=== PATIENT | female | born 1980 | race Caucasian/White ===

== ENCOUNTER 2022-07-31 08:40 | Outpatient (CLI) | payer BC, SELFPAY ==
[2022-07-31 14:23] LABS: Basophils Absolute Auto 0.02 K/uL (0.00-0.30); Basophils Percent Auto 0.2 % (0.0-3.0); Eosinophils Absolute Auto 0.29 K/uL (0.00-0.50); Hematocrit 42.5 % (33.0-51.0); Immature Granulocytes Abs Auto 0.01 K/uL (0.00-0.30); Immature Granulocytes Pct Auto 0.1 %; Lymphocytes Absolute Auto 2.64 K/uL (0.90-2.90); Lymphocytes Percent Auto 27.5 % (20-44); Mean Corpuscular HGB Conc 33 gm/dL (32-36); Mean Corpuscular Hemoglobin 30 pg (26-34); Mean Corpuscular Volume 91 fL (80-100); Monocytes Percent Auto 5.8 % (0.0-11.0); Neutrophils Absolute Auto 6.08 K/uL (1.7-7.0); Neutrophils Percent Auto 63.4 % (42.0-72.0); Platelet Count* 356 K/uL (140-440); RDW Coefficient of Variation % 13.2 % (11.5-15.5); Red Blood Count 4.69 m/uL (4.00-5.20)
[2022-07-31 14:29] LABS: Albumin* 4.5 g/dL (3.3-5.0); Chloride* 107 mmol/L (96-114); Slide Review Reflex No
[2022-07-31 14:30] LABS: Potassium* 4.3 mmol/L (3.6-5.1); Sodium* 140 mmol/L (135-149)
[2022-07-31 14:32] LABS: Aspartate Amino Transferase* 21 U/L (12-35); Bilirubin Direct* 0.2 mg/dL (0.0-0.5); Bilirubin Total* 0.4 mg/dL (0.1-1.5); Blood Urea Nitrogen* 14 mg/dL (5-24); Carbon Dioxide* 25 mmol/L (20-32); Creatinine* 0.7 mg/dL (0.5-1.5); Estimated Glomerular Filt Rate 109 ml/min; Total Protein* 7.3 g/dL (6.0-8.3)
[2022-07-31 14:33] LABS: Alanine Aminotransferase* 22 U/L (4-35); Alkaline Phosphatase* 54 U/L (40-150); Calcium* 9.3 mg/dL (8.4-10.6); Glucose* 106 mg/dL (60-115)
[2022-07-31 15:01] LABS: Erythrocyte SedimentationRate* 7 mm/hr (2-20)
== END 2022-07-31 08:41 | disposition home or self-care (01) ==
PROVIDERS: PCP Family Medicine; Visit Provider Family Medicine
DX: R10.9 Unspecified abdominal pain (principal); H20.9 Unspecified iridocyclitis
CPT/HCPCS: 80048; 80076; 85025; 85651

== ENCOUNTER 2022-08-07 09:01 | Outpatient (CLI) | payer BC, SELFPAY ==
--- NOTE | 2022-08-07 09:00 | CRLHL7_ITS ---
For Patients: As a result of the Century Cures Act, medical imaging exams and procedure reports are released immediately into your electronic medical record. You may view this report before your referring provider. If you have questions, please contact your health care provider. Indication: LLQ ABD PAIN THAT RADIATES TO THE BACK X 1 YEAR. 40# WEIGHT GAIN IN 6 MONTHS Technique: Postcontrast CT abdomen and pelvis. 98 cc Isovue 370 intravenous contrast. Please note that all CT scans at this facility use dose modulation, iterative reconstruction, and/or weight-based dosing when appropriate to reduce radiation dose to as low as reasonably achievable. Comparison: 10/02/2021, 12/23/2020 Findings: Mild sigmoid diverticulosis. No diverticulitis. No bowel obstruction or free air. No free fluid. Appendix normal. The bladder is nondistended. Right-sided uterine cyst again noted. There is a simple left ovarian cyst measuring 1.6 cm. Small right ovarian cyst measuring 1 cm. No adnexal mass. No pelvic or inguinal adenopathy. No abscess. The adrenal glands are within normal limits. Stable incidental calcification associated with the right adrenal gland. Decreased size of septated cystic structure arising from the lateral aspect of the lower pole right kidney, measuring 3.0 x 2.6 cm and previously measuring up to 3.8 cm. No hydronephrosis. Left kidney normal. The gallbladder is absent. There is a simple cyst within the right hepatic lobe. Normal spleen. Pancreas normal. No retroperitoneal or mesenteric adenopathy. The stomach is within normal limits. Mild dependent atelectasis is present within both lung bases. Benign bone island within the right side of the upper sacrum. Degenerative disc disease at L5-S1 and at L1-2. Small umbilical hernia contains fat incidentally noted. Benign bone islands elsewhere within the pelvis. Impression: Continued decreased size of the multilobulated cystic structure arising from the lateral aspect of the right kidney lower pole. No hydronephrosis. Mild diverticulosis. No diverticulitis. No bowel obstruction. Small incidental bilateral ovarian cysts and stable right uterine fundal cyst. Please note that all CT scans at this facility use dose modulation, iterative reconstruction, and/or weight-based dosing when appropriate to reduce radiation dose to as low as reasonably achievable. Dictated by John Sarmiento MD @ 08/07/2022 12:46:42 PM (Electronically Signed)
== END 2022-08-07 09:02 | disposition home or self-care (01) ==
LOC: CT 09:03
PROVIDERS: PCP Family Medicine; Visit Provider Family Medicine
DX: R10.32 Left lower quadrant pain (principal); K57.90 Diverticulosis of intestine, part unspecified, without perforation or abscess without bleeding; N83.201 Unspecified ovarian cyst, right side; N83.202 Unspecified ovarian cyst, left side; N85.8 Other specified noninflammatory disorders of uterus
CPT/HCPCS: 74177; Q9967

== ENCOUNTER 2022-08-26 18:07 | Emergency (ER) | payer BC, SELFPAY ==
[2022-08-26 18:17] VITALS: BP 126/74; PULSE 109; RESP 20; TEMP 37.6; O2SAT 97; BMI 33.3
[2022-08-26 18:53] LABS: Strep A DNA Probe* DETECTED (Not Detectd)
[2022-08-26 19:05] LABS: PCR FLU A Negative PCR FLU A (Negative); PCR FLU B Negative PCR FLU B (Negative); PCR RSV Negative PCR RSV (Negative)
[2022-08-26 19:06] LABS: SARS PCR* Negative SARS-CoV-2 (Negative)
--- NOTE | 2022-08-26 19:54 | ED_ITS ---
HPI - General Adult General Date Seen: 08/26/22 Chief complaint: Sore Throat Stated complaint: Possible Strep and ear infection Time Seen by Provider: 08/26/22 18:40 Source: patient Limitations: no limitations History of Present Illness HPI narrative: Patient is a very nice 42-year-old female presents here with a sore throat, bilateral ear symptoms, her symptoms actually are worse than her throat, she feels that she can not hear, and pressure in her ears. She is able to swallow, take fluids very well, denies any history of significant fevers so seated with this. There has been no nausea no vomiting, no rashes noted. She has been using Tylenol and or ibuprofen for the discomfort, Her strep test was positive in triage. Related Data Previous Rx's Medication Instructions Recorded duloxetine 60 mg capsule,delayed 60 mg PO QDAY #90 caps 04/22/22 release (Cymbalta) celecoxib 200 mg capsule (Celebrex) 200 mg PO BID #60 caps 04/26/22 Allergies Allergy/AdvReac Type Severity Reaction Status Date / Time No Known Drug Allergies Allergy Verified 08/07/22 10:17 Review of Systems Status of ROS: Reports: 10 or more systems reviewed and unremarkable except as noted in History and below [facility] Medical History Complex renal cyst Dermatillomania Dysmenorrhea Fibromyalgia Generalized anxiety disorder Herpes zoster 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) Infection due to severe acute respiratory syndrome coronavirus 2 (SARS-CoV-2) (07/2020) Inflammation of sacroiliac joint Iritis (04/15/13) Major depression, recurrent, chronic Migraine headache Obstructive sleep apnea syndrome Occipital neuralgia (08/13/11) Panic attack Premature delivery Rectal hemorrhage (12/23/20) Seizure disorder Surgical History (Updated 07/27/22 @ 11:32 by Renato Stearns) History of section (2011) History of section (12/25/17) History of laparoscopic cholecystectomy (11/04/17) History of loop electrosurgical excision procedure (LEEP) of cervix (2004) History of tubal ligation (12/25/17) Status post endometrial ablation (02/16/20) Family History (Updated 07/27/22 @ 11:34 by Renato Stearns) Maternal Grandmother Breast cancer, Onset Age: 70 Paternal Grandfather Colon cancer, Onset Age: 65 Paternal Grandmother Diabetes Father Myocardial infarction, Onset Age: 42 Social History (Updated 07/27/22 @ 11:35 by Renato Stearns) Narrative: does not drink alcohol 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 Her pupils are equal round reactive to light her TMs bilaterally are normal with an obvious serous otitis media bilaterally, external canals are otherwise normal, with no mastoid tenderness. Her neck is supple there is no meningismus, her throat is reddened, tonsils are slightly enlarged, no exudates are noted, and there is some redness on the soft palate with petechiae consistent with Streptococcus. Mild lymphadenopathy anterior chains bilaterally, chest is clear, no signs of respiratory distress, no extra sounds. heart sounds are normal, no clicks murmurs or gallops, there is no murmurs noted. Her abdomen is soft there is no guarding no evidence of any tenderness no organomegaly. Const: Vital Signs, click to edit/add: Vital Signs - 24 hr 08/26/22 18:17 Temperature 99.6 F Pulse Rate [Pulse Oximeter] 109 H Respiratory Rate 20 Blood Pressure [Ri ght Upper Arm] 126/74 Pulse Oximetry 97 Oxygen Delivery Me thod Room Air Documenting provider has reviewed patient's vital signs: yes Course Course Hospital Course: Discussed with her that amoxicillin is the drug of choice for this, given her strep throat, for her ears, use of decongestants as her blood pressure is fine, would be advantageous to use of Tylenol ibuprofen, I did offer her an injection of Toradol but she declined. Vital Signs Vital signs: Initial Vital Signs Temperature 99.6 F 08/26/22 18:17 Temperature Source Temporal Artery Scan 08/26/22 18:17 Pulse Rate 109 H 08/26/22 18:17 Pulse Rhythm 08/26/22 18:17 Respiratory Rate 20 08/26/22 18:17 Blood Pressure 126/74 08/26/22 18:17 Blood Pressure Mean 91 08/26/22 18:17 Blood Pressure Position Sitting 08/26/22 18:17 Pulse Oximetry 97 08/26/22 18:17 Oxygen Delivery Method 08/26/22 18:17 Vital Signs Temperature 99.6 F 08/26/22 18:17 Pulse Rate 109 H 08/26/22 18:17 Respiratory Rate 20 08/26/22 18:17 Blood Pressure 126/74 08/26/22 18:17 Pulse Oximetry 97 08/26/22 18:17 Oxygen Delivery Method 08/26/22 18:17 Temperature 99.6 F 08/26/22 18:17 Pulse Rate 109 H 08/26/22 18:17 Respiratory Rate 20 08/26/22 18:17 Blood Pressure 126/74 08/26/22 18:17 Pulse Oximetry 97 08/26/22 18:17 Oxygen Delivery Method 08/26/22 18:17 Medical Decision Making MDM Narrative Medical decision making narrative: Consideration of strep throat, consideration of a peritonsillar abscess, consideration of viral pharyngitis, tonsillitis, retropharyngeal abscess, Medical Records Medical records reviewed: Yes I reviewed the patient's medical records Lab Data Lab results reviewed: Yes I reviewed the patient's lab results Labs: Lab Results 08/26/22 08/26/22 Range/Units 18:16 18:16 SARS-CoV-2 (PCR) Negative SARS-CoV-2 (Negative) Influenza Type A (PCR) Negative PCR FLU A (Negative) Influenza Type B (PCR) Negative PCR FLU B (Negative) RSV (PCR) Negative PCR RSV (Negative) Group A Strep DNA DETECTED A (Not Detectd) Discharge Plan Discharge Clinical Impression: Acute serous otitis media, Strep throat Patient Disposition: Home, Self-Care Condition: Stable Instructions: Pharyngitis (ED), Strep Throat (ED), Strep Throat (DC), Ear Infection (ED), Serous Otitis Media (ED) Additional Instructions: Home rest use of medications as directed amoxicillin per prescription, you may use Tylenol and ibuprofen for the discomfort, cold medicine such as Sudafed actually also helps the ears drain. Follow-up with signs and symptoms of worsening. Prescriptions: No Action duloxetine [Cymbalta] 60 mg capsule,delayed release(DR/EC) 60 mg PO QDAY Qty: 90 0RF celecoxib [Celebrex] 200 mg capsule 200 mg PO BID Qty: 60 5RF Follow Up/Referrals: John Singh MD [Primary Care Provider] - Stand Alone Forms: Year Up Info Instructions
== END 2022-08-26 19:40 | disposition home or self-care (01) ==
PROVIDERS: Emergency Provider Family Medicine; PCP Family Medicine
DX: H65.03 Acute serous otitis media, bilateral (principal); J02.0 Streptococcal pharyngitis
CPT/HCPCS: 87502; 87634; 87635; 87651; 99283; 99284

== ENCOUNTER 2022-09-03 15:13 | Outpatient (CLI) | payer BC, SELFPAY | END 2022-09-03 15:14 | disposition home or self-care (01) | PROVIDERS: PCP Family Medicine; Visit Provider Obstetrics & Gynecology | DX: N39.0 Urinary tract infection, site not specified (principal) | CPT/HCPCS: 87086 ==

== ENCOUNTER 2023-08-29 07:54 | Outpatient (CLI) | payer BC, SELFPAY | END 2023-08-29 07:55 | disposition home or self-care (01) | PROVIDERS: PCP Family Medicine; Visit Provider Family Medicine | DX: Z13.220 Encounter for screening for lipoid disorders (principal); Z13.228 Encounter for screening for other metabolic disorders | CPT/HCPCS: 80048; 80061 ==

== ENCOUNTER 2023-12-03 09:08 | Emergency (ER) | payer BC, SELFPAY ==
[2023-12-03 09:16] VITALS: BP 105/75; PULSE 113; RESP 20; TEMP 37.7; O2SAT 98; BMI 30.7
--- NOTE | 2023-12-03 09:42 | ED_ITS ---
HPI - General Adult General Date Seen: 12/03/23 Chief complaint: Cough Stated complaint: congestion,sore throat,difficulty breathing Time Seen by Provider: 12/03/23 09:42 Source: patient Mode of arrival: ambulatory Limitations: no limitations History of Present Illness HPI narrative: Patient reports chest, sinus congestion, fatigue and cough beginning on Saturday. Is using Sudafed and Tylenol with no relief Patient is a very nice 43-year-old female who presents here with the above symptoms she has as she had these since , fever up to 102.1 at home, feeling of fullness in her face lots of nasal congestion ear discomfort, and a cough, she does not feel short of breath and she has no chest pain associated with this. No nausea vomiting denies any abdominal pain, no rashes associated with this. She does feel she is immunocompromised, has a history of HLA B27 spondyloarthropathy. She has not received immunizations for either influenza or COVID. 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 Denies a headache, neck pain or stiffness, no dysuria frequency no history of any back pain associated with this. Has been using some cold medications including Sudafed, with no real relief. Related Data Home Medications Medication Instructions Recorded Confirmed valacyclovir 1 gram tablet 1,000 mg PO QDAY PRN 10/04/23 Previous Rx's Medication Instructions Recorded tizanidine 4 mg tablet 4 mg PO BID PRN muscle spasticity 04/12/23 #30 tabs hydrocodone 5 mg-acetaminophen 325 1 tab PO TID PRN pain #20 tabs 07/17/23 mg tablet celecoxib 200 mg capsule (Celebrex) 200 mg PO BID #180 caps 08/29/23 semaglutide (weight loss) 0.25 0.25 mg (0.5 mL) subcut QWEEK #2 mL 08/30/23 mg/0.5 mL subcutaneous pen injector (Wegovy) duloxetine 60 mg capsule,delayed 60 mg PO QDAY #90 caps 11/20/23 release (Cymbalta) Allergies Allergy/AdvReac Type Severity Reaction Status Date / Time No Known Drug Allergies Allergy Verified 08/29/23 07:45 Review of Systems Status of ROS: Reports: 10 or more systems reviewed and unremarkable except as noted in History and below [facility] Medical History Herpes simplex ?B00.9 - Herpesviral infection, unspecified (ICD-10) Generalized anxiety disorder ?F41.1 - Generalized anxiety disorder (ICD-10) Major depression, recurrent, chronic ?F33.9 - Major depressive disorder, recurrent, unspecified (ICD-10) Seizure disorder ?G40.909 - Epilepsy, unspecified, not intractable, without status epilepticus (ICD-10) Rectal hemorrhage (12/23/20) ?K62.5 - Hemorrhage of anus and rectum (ICD-10) Premature delivery ?O60.10X0 - labor with delivery, unspecified trimester, not applicable or unspecified (ICD-10) Panic attack ?F41.0 - Panic disorder [episodic paroxysmal anxiety] (ICD-10) Occipital neuralgia (08/13/11) ?M54.81 - Occipital neuralgia (ICD-10) Obstructive sleep apnea syndrome ?G47.33 - Obstructive sleep apnea (adult) (pediatric) (ICD-10) Migraine headache ?G43.909 - Migraine, unspecified, not intractable, without status migrainosus (ICD-10) Iritis (04/15/13) ?H20.9 - Unspecified iridocyclitis (ICD-10) Inflammation of sacroiliac joint ?M46.1 - Sacroiliitis, not elsewhere classified (ICD-10) Infection due to severe acute respiratory syndrome coronavirus 2 (SARS-CoV-2) (07/2020) ?U07.1 - COVID-19 (ICD-10) 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) ?M47.899 - Other spondylosis, site unspecified (ICD-10) Herpes zoster ?B02.9 - Zoster without complications (ICD-10) Fibromyalgia ?M79.7 - Fibromyalgia (ICD-10) Dysmenorrhea ?N94.6 - Dysmenorrhea, unspecified (ICD-10) 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 (skin-picking) disorder (ICD-10) Complex renal cyst ?N28.1 - Cyst of kidney, acquired (ICD-10) Surgical History Status post endometrial ablation (02/16/20) ?Z98.890 - Other specified postprocedural states (ICD-10) History of tubal ligation (12/25/17) ?Z98.51 - Tubal ligation status (ICD-10) History of loop electrosurgical excision procedure (LEEP) of cervix (2004) ?Z98.890 - Other specified postprocedural states (ICD-10) History of laparoscopic cholecystectomy (11/04/17) ?Z90.49 - Acquired absence of other specified parts of digestive tract (ICD- 10) History of section (12/25/17) ?Z98.891 - History of uterine scar from previous surgery (ICD-10) History of section (2011) ?Z98.891 - History of uterine scar from previous surgery (ICD-10) Family History Maternal Grandmother Breast cancer, Onset Age: 70 Paternal Grandfather Colon cancer, Onset Age: 65 Paternal Grandmother Diabetes Father Myocardial infarction, Onset Age: 42 Social History Narrative: does not drink alcohol 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 , 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, 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 Smoking Status: Former smoker How often do you have a drink containing alcohol: never AUDIT-C Alcohol total score: 0 Non-prescribed substance use: denies use Little interest or pleasure in doing things: not at all Feeling down, depressed, or hopeless: not at all Are you currently sexually active: Yes Are you using contraception or practicing any form of control: Yes (tubal ligation) Exam Narrative: Exam Narrative: On examination in room 1 she is in no apparent distress she is speaking to me normally, her pupils are equal round reactive to light there is no scleral icterus redness her TMs show fluid bilaterally consistent with serous otitis media. Oropharynx is otherwise normal with no significant swelling redness, or tonsillar/uvular abnormality. No meningismus, her neck is supple, there is no evidence of any lid significant lymphadenopathy, she is coughing, but she has good air entry bilaterally with no wheezing crackles noted. Heart sounds no clicks murmurs or gallops, her abdomen is soft, no tenderness to palpation no CVA tenderness she moves all extremities independently and well. Her sinuses are palpated and tender bilaterally in her maxilla. Const: Vital Signs, click to edit/add: Vital Signs - 24 hr 12/03/23 09:16 Temperature 99.8 F H Pulse Rate [Pulse Oximeter] 113 H Respiratory Rate 20 Blood Pressure [Ri ght Upper Arm] 105/75 Pulse Oximetry 98 Oxygen Delivery Me thod Room Air Course Course ED Course: I discussed with her, that she has serous otitis media, she likely has some sort of viral illness that is now bordering on sinusitis, with a cough, I am reassured by her vital signs I do think she is mildly tachycardic but this is likely due to the recent ingestion of Sudafed. I do not think there is any significant issues, going on here today. I would advocate for possibly some Zithromax, for her chest and sinuses along with prednisone, and she is in agreement I will give her note for work also. We will await the triple screen viral testing. And call her if this is positive. Vital Signs Vital signs: Initial Vital Signs Temperature 99.8 F H 12/03/23 09:16 Temperature Source Temporal Artery Scan 12/03/23 09:16 Pulse Rate 113 H 12/03/23 09:16 Respiratory Rate 20 12/03/23 09:16 Blood Pressure 105/75 12/03/23 09:16 Blood Pressure Mean 85 12/03/23 09:16 Pulse Oximetry 98 12/03/23 09:16 Oxygen Delivery Method Room Air 12/03/23 09:16 Vital Signs Temperature 99.8 F H 12/03/23 09:16 Pulse Rate 113 H 12/03/23 09:16 Respiratory Rate 20 12/03/23 09:16 Blood Pressure 105/75 12/03/23 09:16 Pulse Oximetry 98 12/03/23 09:16 Oxygen Delivery Method Room Air 12/03/23 09:16 Temperature 99.8 F H 12/03/23 09:16 Pulse Rate 113 H 12/03/23 09:16 Respiratory Rate 20 12/03/23 09:16 Blood Pressure 105/75 12/03/23 09:16 Pulse Oximetry 98 12/03/23 09:16 Oxygen Delivery Method Room Air 12/03/23 09:16 Medical Decision Making MDM Narrative Medical decision making narrative: Differential diagnosis include a viral upper respiratory illness, histoplasmosis, tuberculosis, pneumonia, COPD exacerbation, emphysema, strep throat illness, bronchitis, asthma, reactive airway disease, chronic cough, medication side effects, allergic rhinitis with postnasal drip, foreign body aspiration, aspiration pneumonia, bronchiolitis, and gastroesophageal reflux disease as well as multiple other considerations. Lab Data Labs: Lab Results 12/03/23 Range/Units 09:22 SARS-CoV-2 (PCR) Negative SARS-CoV-2 (Negative) Influenza Type A (PCR) Negative PCR FLU A (Negative) Influenza Type B (PCR) Negative PCR FLU B (Negative) RSV (PCR) Negative PCR RSV (Negative) Discharge Plan Discharge Clinical Impression: Acute serous otitis media, Sinusitis, Bronchitis Condition: Stable Instructions: Sinusitis (ED), Acute Bronchitis (ED), Rhinosinusitis (DC), Fluid In The Ear (Serous Otitis Media) (ED) Additional Instructions: Prescription given through [facility]ym[facility] for prednisone, 40 mg daily for the next 5 days, Zithromax Z-[place] as directed, off work for 2 days, return here if increasing chest pain shortness of breath or other symptoms, we will call you if the swabs are positive and let you know. Tylenol, along with Sudafed as needed for symptomatic use. Activity Level: Light activity Prescriptions: No Action celecoxib [Celebrex] 200 mg capsule 200 mg PO BID Qty: 180 3RF Wegovy 0.25 mg/0.5 mL pen injector 0.25 mg subcut QWEEK Qty: 2 0RF Rx Instructions: 0.25 mg weekly x 4 doses then 0.5 mg weekly x 6 doses then 1 mg weekly valacyclovir 1 gram tablet 1,000 mg PO QDAY PRN tizanidine 4 mg tablet 4 mg PO BID PRN (Reason: muscle spasticity) Qty: 30 1RF hydrocodone-acetaminophen 5-325 mg tablet 1 tab PO TID PRN (Reason: pain) Qty: 20 0RF duloxetine [Cymbalta] 60 mg capsule,delayed release(DR/EC) 60 mg PO QDAY Qty: 90 0RF Follow Up/Referrals: John Singh MD [Primary Care Provider] - Stand Alone Forms: [employer] Info Instructions
--- OUTSIDE RECORDS SUMMARY | 2023-12-03 10:01 | XMS_ITS | Clinical Summary ---
Author Name Unknown Organization [email or web address] [facility] Address [place], [place] [address] Care Team Providers Care Director Of Aviation Name Role Phone John Singh MD Primary Care Provider + Allergies No known active allergies Medications Medication Sig Dispensed Refills Start Date End Date Status clindamycin 1% (CLEOCIN-T) 1 % gelIndications:Acne, unspecified acne type Apply topically to affected area(s) 2 times daily. 60 g 11 08/09/2017 Active doxycycline monohydrate (MONODOX) 100 mg capsuleIndications:C ough,Folliculitis One twice daily x ten days then one oral every day x ten days 30 capsule 10/03/2018 Active LORazepam (ATIVAN) 1 mg tabletIndications:An xiety and depression Take 1 tablet by mouth every 6 hours if needed for Anxiety. 15 tablet 10/04/2018 Active sertraline (ZOLOFT) 100 mg tabletIndications:An xiety and depression TAKE ONE TABLET BY MOUTH EVERY DAY IN THE MORNING. 30 tablet 4 06/22/2019 Active oxybutynin XL (DITROPAN XL) 5 mg CR tabletIndications:Ur inary frequency Take 1 Tablet (5 mg) by mouth once daily. 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 Last Tdap- 09/29/2009 Last Flu vaccine- 04/18/2012 No Known Allergies Obstetric History T0 L0 SAB1 TAB0 Ectopic0 Multiple0 Live Births0 # Outcome Date GA Lbr Timbo/2nd Weight Sex Delivery Anes PTL Lv 4 Current 3 2 SAB 1 Component Latest Ref Rng & Units 06/06/2017 06/06/2017 06/06/2017 6:01 PM 6:01 PM 6:01 PM COLOR Yellow Color CLARITY Clear Clarity SPECIFIC GRAVITY,URINE 1.010, 1.015, 1.020, 1.025 PH,URINE 6.0, 7.0, 8.0, 5.5, 6.5, 7.5, 8.5 UROBILINOGEN,QUALITATIVE Normal EU/dl PROTEIN, URINE Negative mg/dL GLUCOSE, URINE Negative mg/dL KETONES,URINE Negative mg/dL BILIRUBIN,URINE Negative OCCULT BLOOD,URINE Negative NITRITE Negative LEUKOCYTE ESTERASE Negative HEMOGLOBIN 12.0 - 16.0 g/dL 12.4 MCV 80 - 100 fL 92 ANTIBODY SCREEN Negative Negative SPECIMEN EXPIRATION DATE/TIME 06/09/17 23:59 RUBELLA IGG ANTIBODY Positive 1.52 HIV-1/HIV-2 ANTIBODY Non-Reactive Non-Reactive ABORH A Rh Positive HBSAG Nonreactive Nonreactive TREPONEMA PALLIDUM Negative Negative LYME SCREEN W/REFLEX WEST BLOT Negative Negative HEMOGLOBIN A1C SCREENING <6.4 % 5.2 Component Latest Ref Rng & Units 06/11/2017 COLOR Yellow Color Yellow CLARITY Clear Clarity Clear SPECIFIC GRAVITY,URINE 1.010, 1.015, 1.020, 1.025 >=1.030 (A) PH,URINE 6.0, 7.0, 8.0, 5.5, 6.5, 7.5, 8.5 5.5 UROBILINOGEN,QUALITATIVE Normal EU/dl Normal PROTEIN, URINE Negative mg/dL Negative GLUCOSE, URINE Negative mg/dL Negative KETONES,URINE Negative mg/dL Negative BILIRUBIN,URINE Negative Negative OCCULT BLOOD,URINE Negative Negative NITRITE Negative Negative LEUKOCYTE ESTERASE Negative Negative HEMOGLOBIN 12.0 - 16.0 g/dL MCV 80 - 100 fL ANTIBODY SCREEN Negative SPECIMEN EXPIRATION DATE/TIME RUBELLA IGG ANTIBODY HIV-1/HIV-2 ANTIBODY Non-Reactive ABORH HBSAG Nonreactive TREPONEMA PALLIDUM Negative LYME SCREEN W/REFLEX WEST BLOT Negative HEMOGLOBIN A1C SCREENING <6.4 % Past Medical History: Diagnosis Date ? ? Acne Sees Dr. Abel for it ? ? Encounter for supervision of other normal , first trimester 06/06/2017 ? ? LGSIL (low grade squamous intraepithelial dysplasia) 10/01 ? ? Low back pain L4-5 issues, seeing neurologist for this ? ? Migraine 08/02/2011 Past Surgical History: Procedure Laterality Date ? ? SECTION 2011 ? ? COLPOSCOPY 2005 JEFFERSON II-III, yearly paps recommended until 2025 ? ? LEEP PROCEDURE 2006 No data on file. 2nd Problems (from 06/06/17 to present) No problems associated with this episode. Eliz Esqueda RNC.....06/12/2017 8:51 AM Encounter for supervision of other normal , first trimester 06/06/2017 10/16/2018 Supervision of normal first 09/28/2011 04/03/2016 Overview: It's a boy Chronic back/leg pain Abnormal Quad screen, level 2 ultrasound reassuring. Immunizations Name Administration Dates Next Due DTP 10/31/1983, 1,1978,1977,1978 Hepatitis B (Adult) 03/04/1997 Hepatitis B (Peds) 12/05/2010 Influenza A (H1N1), Inactivated 09/29/2009 Influenza A (H1N1), Inactiva hilary (Age >=3 Years) 09/29/2009 Influenza Virus, Unspecified 04/18/2012 Influenza, IIV3 (Age 6-35 mos) 04/18/2012,2009 Influenza, IIV3 (Age >=3 years) 04/25/2011,09/29 MMR 03/13/1994,06/20/1979 Oral Polio Vaccine 10/31/1983, 1,1978,1977 TD, UNSPECIFIED 09/29/2009 Td (Age >=7 Years) 03/13/1994 Tdap 09/29/2009 Tuberculin (PPD) 03/04/1997 Family History Medical History Relation Name Comments Heart Disease Father MO-45 triple b ypass Cancer Maternal Grandfather Cancer-prostate Maternal Grandfather Cancer-breast Maternal Grandmother Hypertension Maternal Grandmother Cancer Paternal Grandfather liver,l scarlett,throat Cancer-prostate Paternal Grandfather Diabetes Paternal Grandmother Relation Name Status Comments Brother Alive Father Alive Maternal Grandfather Maternal Grandmother Alive Mother Alive Paternal Grandfather Paternal Grandmother Social History Tobacco Use Types Packs/Day Years Used Date Smoking Tobacco: Former Cigarettes Smokeless Tobacco: Never Tobacco Cessation:Counseling Given: Yes Alcohol Use Standard Drinks/Week Comments No 0 (1 standard drink = 0.6 oz pur e alcohol) PHQ-2 Answer Date Recorded PHQ-2 Score 0 10/16/2018 Sex and Gender Information Value Date Recorded Sex Assigned at Not on file Gender Identity Not on file Sexual Orientation Not on file Obstetrics History Para Term AB IAB SAB Ectopic Multiple Livin g Live Births 3 1 1 0 1 1 0 Date Outcome GA Total Labor Labor/2nd/3rd Weight Sex Delivery Anes PTL Lin A1 A5 Name Cl in 2007 SAB Comments:miscarried at 12 weeks 04/04 Term 37w 0d 3.71 kg (8 lb 3 oz) M CS-LTranv Epidu ral N Complications:Shoulder Dysto terra Comments:System Genera hilary. Please review and update details. Last Filed Vital Signs Vital Sign Reading Time Taken Comments Blood Pressure 113/84 02/13/2021 2:15 PM CDT Pulse 70 02/13/2021 2:15 PM CDT Temperature 37.3 ??C (99.1 ??F) 10/16/2018 8:44 AM CD T Respiratory Rate 14 02/13/2021 2:15 PM CDT Oxygen Saturation 97% 02/13/2021 2:15 PM CDT Inhaled Oxygen Concentration - - Weight 88.4 kg (194 lb 12.8 oz) 01/09/2021 1:29 PM CDT Height 166 cm (5' 5.35) 10/16/2018 8:44 AM CDT Body Mass Index 32.07 10/16/2018 8:44 AM CDT Plan of Treatment Health Maintenance Due Date Last Done Comments Tetanus booster 09/30/2019 09/29/2009, 10/2009, 03/13/1994 BMI (ht and wt on same day) for age 18+ 10/17/2019 10/16/2018, 10/04/2018, 10/03/2018, Additional history exists Depression screening for age 12+ 06/22/2020 06/22/2019, 10/16/2018, 10/06/2018, Additional history exists Colonoscopy through age 75 2023 Lipids for age 45-75 2023 Mammogram for age 45-75 2023 COVID-19 vaccine series ( season) 2023 Pap test for age 21-65 12/06/2023 1, 12/05/2020, 07/23/2016, Additional history exists Influenza for age 9-49 03/29/2024 2, 04/25/2011, 09/29/2009, Additional history exists Tdap Completed 09/29/2009 Hepatitis C screening for age 18-79 Completed 09/12/2011, 09/29/2009 HIV for age 15-65 Completed 06/06/2017, , 09/29/2009 Pneumococcal series for age 6-64 Aged Out No longer eligible based on patient's age to complete this topic Procedures Procedure Name Priority Date/Time Associated Diagnosis Comments SUPERVISOR LOGGING THIN PREP PAP SCREEN IMAGED Routine 12/05/2020 12:00 PM CDT ANTI HIV 1/2 Routine 06/06/2017 6:01 PM CLOSET ORGANIZER Encounter for supervision of other normal , first trimester ANTI HCV Routine 09/12/2011 11:28 AM CLOSET ORGANIZER Supervision of normal first from Last 3 Months or Most Recently Relevant to Health Maintenance Results * SUPERVISOR LOGGING THIN PREP PAP SCREEN IMAGED (12/05/2020 12:00 PM CDT) Case Report Gynecologic Cytology Report ? Case: [id number] ? Authorizing Provider: ??Sandra Harrison ??Collected: ? 12/05/2020 1200 ? M, MD ? Ordering Location: ? [facility] ?Received: ?12/07/2020 1007 ? First Screen: ?Kenrick Ascencio ? Specimen: ?SUPERVISOR LOGGING ThinPrep Vial Screening, Cervical/Vaginal ? 12/15/2020 1:17 PM CDT [facility] INTERPRETATION/ RESULT NEGATIVE FOR INTRAEPITHELIAL LESION OR MALIGNANCY (NIL) (none) 12/15/2020 1:17 PM CDT [facility] IMEN ADEQUACY Satisfactory for evaluation No endocervical component seen 12/15/2020 1:17 PM CDT [facility] HPV REQUEST HPV and PAP 12/15/2020 1:17 PM CDT [facility] [employer] LABORATORY-C ENTRAL LABORATORY Date of LMP 12/15/2020 1:17 PM CDT [facility] Comment:Ablation Last Pap Date 07/23/2016 12/15/2020 1:17 PM CDT [facility] Last Pap Result NIL 1:17 PM CDT [facility] Comment:Neg hpv Additional Information 12/15/2020 1:17 PM CDT [facility] Comment: Interpreted at [facility] - [address], [place] [address] Automated Review Successful 12/15/2020 1:17 PM CDT [facility] Comment:Specimen processed s uccessfully by automated thread checker device, [employer] Imaging System, [employer] ANCILLARY TESTING SUPERVISOR LOGGING HPV Ordered, Please see separate report 12/15/2020 1:17 PM CDT [facility] Note The pap test is a screening technique, not a diagnostic procedure. It is used primarily to screen for squamous cancers and precursor lesions. Published studies have shown that it is subject to both false negative and false positive results. The pap test should not be used as the sole means to diagnose or exclude pre-malignant and malignant lesions. 12/15/2020 1:17 PM CDT [facility] Other (Cervical/Vagina l) 12/05/2020 12:00 PM CDT 12/07/2020 10:07 AM CDT Sandra Harrison MD PATHOLOGY/ CYTOLOGY [facility] [address] [place] [address], * ANTI HIV 1/2 (06/06/2017 6:01 PM CLOSET ORGANIZER) HIV-1/HIV-2 ANTIBODY Non-Reacti ve Non-Reacti ve 06/07/2017 1:44 PM CLOSET ORGANIZER [facility] TRAL LABORATORY Blood BLOOD SPECIMEN / Unknown Venipuncture / Unknown 06/06/2017 6:01 PM CLOSET ORGANIZER 06/06/2017 6:01 PM CLOSET ORGANIZER Narrative [facility]-CENTRAL LABORATORY - 06/07/2017 1:44 PM CLOSET ORGANIZER HIV-1 p24 and HIV-1/HIV-2 Ab not detected Erin Merida NP SEND OUT[facility] LAB[facility]ORY-CENTRAL LABORATORY [address] [place] [address], [place] * ANTI HCV (09/12/2011 11:28 AM CLOSET ORGANIZER) ANTI HCV Non-reacti ve [facility] Blood specimen (specimen) BLOOD SPECIMEN / Unknown 09/12/2011 11:28 AM CLOSET ORGANIZER 09/12/2011 11:20 AM CLOSET ORGANIZER Marion BATISTA SEND OUT[facility] INTERNAL ZIP [address] [address] from Last 3 Months or Most Recently Relevant to Health Maintenance Care Teams Director Of Aviation Relationship Specialty Start Date End Date John Singh MD [address] [place] [address] PCP - General Family Practice 01/09/21
--- OUTSIDE RECORDS SUMMARY | 2023-12-03 10:01 | XMS_ITS | Data Portability ---
Author Name Unknown Address [address] [place] [address] Phone [phone] Organization [facility] Address [address] [place] [address] Care Team Providers Care Flight Test Shop Mechanic Name Role Phone HANANE COYNE Primary Care Provider [phone] Assessment No assessment recorded. Plan of Treatment Reminders Order Date Submit Date Provider Last Modified By Organization Details Last Modified Time Details Appointments None recorded. Lab None recorded. Referral None recorded. Procedures cyst aspiration (PROC) - by Radiology. Send fluid for Cytology to detect any cancer cells. 2020 021 [facility], [address], [place], [address], 16:07:16 Surgeries None recorded. Imaging None recorded. Medication Orders None recorded. Patient TargetsNo targets recorded. Patient InstructionsNo instructions recorded. Reason for Referral None Reported. Results Created Date Observation Date Name Description Value Unit Range Abnormal Flag LastModifiedBy Organization Detail LastModifiedTime 01/25/2001/17/2021 US, renal No observ ation record ed. [email or web address] Not Available 01/24/2021 17:43:27 01/26/20 CT, abdom en + pelvi s, w/ contr ast No observ ation record ed. [email or web address] Not Available 01/25/2021 18:49:31 02/15/20 21 02/13/2021 imagi ng/di agnos tic resul t No observ ation record ed. Not Available 02/14/2021 12:47:47 Result Notes None recorded. Procedures Surgical History None recorded. Imaging Results Imaging Date Name Status LastModified by Organ [facility] Details LastModified Time 01/17/2021 US, renal completed [email or web address] Information n ot available 01/24/2021 17:43:27 01/25/2021 CT, abdomen + pelvis, w/ contrast completed [email or web address] Information not available 01/25/2021 18:49:31 02/13/2021 imaging/diagn ostic result completed Information not available 02/14/2021 12:47:47 Procedure Notes None recorded. Medical Equipment None Reported. Allergies No known drug allergies Medications Name Sig Start Date Stop Date Status Note LastModified by Organization Details LastModified Time doxycycline hyclate 100 mg capsule TAKE ONE CAPSULE BY MOUTH TWICE DAILY for 10 days active Not Available Not Available No t Available ibuprofen 800 mg tablet active Not Available Not Available Not Available prednisone 20 mg tablet TAKE 2 TABLETS BY MOUTH ONCE DAILY FOR 4 DAYS, THEN TAKE 1 TABLET ONCE DAILY FOR 4 DAYS, THEN TAKE 1/2 TABLET ONCE DAILY FOR 4 DAYS. active Not Available Not Available No t Available sertraline 100 mg tablet TAKE ONE TABLET BY MOUTH ONE TIME DAILY active Not Available Not Available No t Available tramadol 50 mg tablet TAKE ONE TABLET BY MOUTH EVERY SIX HOURS NEEDED active Not Available Not Available No t Available ketorolac 10 mg tablet TAKE ONE TABLET BY MOUTH THREE TIMES DAILY NEEDED active Not Available Not Available No t Available prednisolon e acetate 1 % eye drops,suspe nsion place 1 drop into both eyes by ophthalmi c route every 2 hours for 3 days, then decrease to every 4 hours for 3 days, then four times daily u active Not Available Not Available No t Available hydrocodone 7.5 mg-acetamin ophen 325 mg tablet Take 1 tablet by mouth once as needed active Not Available Not Available No t Available misoprostol 200 mcg tablet INSERT 2 TABLETS BY VAGINAL ROUTE THE NIGHT BEFORE PROCEDURE . active Not Available Not Available No t Available oxybutynin chloride ER 5 mg tablet,exte nded release 24 hr Take 1 Tablet (5 mg) by mouth once daily active Not Available Not Available No t Available diclofenac sodium 75 mg tablet,van yed release TAKE ONE TABLET BY MOUTH TWICE DAILY active Not Available Not Available No t Available zolpidem 5 mg tablet TAKE ONE TABLET BY MOUTH ONE TIME DAILY AT BEDTIME NEEDED FOR SLEEP active Not Available Not Available No t Available ibuprofen 600 mg tablet TAKE ONE TABLET BY MOUTH EVERY SIX HOURS NEEDED active Not Available Not Available No t Available cefdinir 300 mg capsule TAKE ONE CAPSULE BY MOUTH TWICE DAILY FOR 10 DAYS 01/25 completed Not Available Not Available Not Available spironolact one 50 mg tablet TAKE ONE TABLET BY MOUTH TWICE DAILY active Not Available Not Available No t Available diazepam 5 mg tablet take 1 tablet by mouth for 1 dose. active Not Available Not Available No t Available oxycodone 5 mg tablet TAKE ONE TABLET BY MOUTH EVERY FOUR HOURS NEEDED FOR PAIN. MAX OF 6 TABLETS PER DAY. active Not Available Not Available No t Available clindamycin 1 % lotion Apply 1 applicati on topically 2 (two) times a day for face and chest active Not Available Not Available No t Available duloxetine 30 mg capsule,del ayed release active Not Available Not Available Not Available duloxetine 60 mg capsule,del ayed release active Not Available Not Available Not Available Vitals Date Recorded Body height Body mass index (BMI) Body weight Respiratory rate Provider Name and Address Organization Details Last Updated DateTime 01/25/2021 165.1 cm 26.6 kg/m2 82693.78 g 16 /min Eloise hutchinson [facility] 01/25/2021 17:33:28 Social History Question Answer Notes LastModified by Organizat ion Details LastModified Time Tobacco Smoking Status Former Smoker Eloise hutchinson [facility] 01/25/2021 17:40:16 Do You Or Have You Ever Used E-cigarettes Or Vape? Never Used Electronic Cigarettes Information not available 01/25/2021 Do You Or Have You Ever Used Smokeless Tobacco? Never Used Smokeless Tobacco Information not available 01/25/2021 Sex: Female Functional Status None recorded. Mental Status None recorded. Family History Relationship Description Onset Age of this Age Resolved Age Notes Notes:breast cancer- grandmo ther cancer of the colon-grandfather neoplasm of the ovary- grandmother prostate cancer- grandfather cardiac disorder-father hypertension- father DM- grandmother Medical History No medical history recorded. Gynecological History Statement/Question Response Sexually Active? Y Pain with intercourse N Obstetrics History GPAL:G 0 P 0 0 0 0 Past Encounters Encounter ID Performer Location Encounter Start Date Encounter Closed Date Diagnosis/Indication Diagnosis SNOMED-CT Code [id number] [facility] [address] [place] [address] 01/25/2021 16:26:25 01/26/2021 08:32:50 Complex renal cyst [id number] 02 Health Concerns Section Related Observation LastModified by Organization Detai ls LastModified Time None Recorded Concern Status LastModified by Organization Details LastModified Time None Recorded Advance Directives Directive None Recorded Payers Encounter Date Sequence Insurance Name Policy Number Policy Bates Covered Member ID Bates Member ID Guarantor Name 01/25/2021 1 [place] - HMO) [id number] Dorothy Wilder [id number] Dorothy Wilder Notes Date Note Type Note Provider Name and Address Organization Details Recorded Time 01/25/2021 text/html HPI Notes: She i s having sharp and constant pains in her back. She also has urinary urgency and nocturia. As part of this work up she's had an MRI, ultrasound and CT scan. These have confiremd a large, mostly benign appearing right lower pole renal cyst. She came with her , which was quite helpful. Azucena LoeraJESUS urena - [facility] 01/25/2021 18:49:45 OBGyn Episode No OBEpisode recorded.
--- OUTSIDE RECORDS SUMMARY | 2023-12-03 10:02 | XMS_ITS | Clinical Summary ---
Author Name Unknown Organization [facility] Address [address] [place] [address] Care Team Providers Care Latex Foam Worker Name Role Phone [facility], [facility] Primary Care Provider Allergies No known active allergies Medications Medication Sig Dispensed Refills Start Date End Date Status prednisoLONE acetate (PRED FORTE) 1 % ophthalmic suspIndications:Ir itis Place 1 drop into both eyes 4 times daily Active oxyCODONE IR (ROXICODONE) 5 MG tabletIndications: S/P section Take 1 tablet (5 mg) by mouth every 4 hours as needed for moderate to severe pain 30 tablet 12/27/2017 Active senna-docusate (SENOKOT-S;PERICOL MAX) 8.6-50 MG per tabletIndications: S/P section Take 1 tablet by mouth 2 times daily as needed for constipation 30 tablet 12/27/2017 Active Active Problems Problem Noted Date Diagnosed Date S/P section 12/27/2017 care and examination 12/25/2017 Indication for care in labor or delivery 018 Immunizations Name Administration Dates Next Due Influenza (intradermal) 04/18/2012 Tdap (Adult) Unspecified Formulation 09/29/2009 Social History Tobacco Use Types Packs/Day Years Used Date Smoking Tobacco: Some Days Smokeless Tobacco: Never Alcohol Use Standard Drinks/Week Comments No 0 (1 standard drink = 0.6 oz pur e alcohol) Sex and Gender Information Value Date Recorded Sex Assigned at Not on file Gender Identity Not on file Sexual Orientation Not on file Last Filed Vital Signs Vital Sign Reading Time Taken Comments Blood Pressure 129/79 12/27/2017 8:06 AM CDT Pulse 71 12/27/2017 8:06 AM CDT Temperature 36.7 ??C (98 ??F) 12/27/2017 8:06 AM CDT Respiratory Rate 16 12/27/2017 11:25 AM CDT Oxygen Saturation 96% 12/26/2017 12:18 AM CDT Inhaled Oxygen Concentration - - Weight 85.3 kg (188 lb) 12/24/2017 10:39 PM CDT Height 167.6 cm (5' 6) 12/24/2017 10:39 PM CDT Body Mass Index 30.34 12/24/2017 10:39 PM CDT Plan of Treatment Not on file Care Teams Latex Foam Worker Relationship Specialty Start Date End Date Clinic, [facility] [address] [place] [address] PCP - General 12/25/17
--- OUTSIDE RECORDS SUMMARY | 2023-12-03 10:02 | XMS_ITS | Referral Summary ---
Author Name Unknown Organization [facility] Address [address] [place] [address] Care Team Providers Care Tinsmith Apprentice Name Role Phone [facility] Primary Care Provider Allergies No known [...] of Treatment Not on file Care Teams Tinsmith Apprentice Relationship Specialty Start Date End Date Clinic, [facility] [address] [place] [address] PCP - General 12/25/17
[2023-12-03 10:06] LABS: PCR FLU A Negative PCR FLU A (Negative); PCR FLU B Negative PCR FLU B (Negative); PCR RSV Negative PCR RSV (Negative); SARS PCR* Negative SARS-CoV-2 (Negative)
== END 2023-12-03 10:20 | disposition home or self-care (01) ==
PROVIDERS: Emergency Provider Family Medicine; PCP Family Medicine
DX: H65.03 Acute serous otitis media, bilateral (principal); J40 Bronchitis, not specified as acute or chronic
CPT/HCPCS: 87631; 99283

== ENCOUNTER 2024-05-05 11:40 | Outpatient (CLI) | payer BC, SELFPAY ==
--- OUTSIDE RECORDS SUMMARY | 2024-05-08 13:16 | XMS_ITS | Continuity of Care Document ---
Author Organization [facility] Address [address] [place] [address] Phone Care Team Providers Care Seismograph Observer Name Role Phone James Mac MD Unavailable Unavailable Advance Directives Directive Yes / No Effective Date File Name No Information Encounters Encounter Description Practice Location Reason(s) For Visit Diagnoses Date Provider Providers Copied on Encounter [facility], [address], [place], [address], [place] tel:[phone] [facility], No Information 0 Estefania Ramirez. [facility] [address], [place], [address], [place]. tel:[phone] Family History Family Member Type Diagnosis Age At Onset No Information Payers Payer name Insurance type Covered alliance party ID Authoriza tion(s) No Information Social History Type Description Quantity Date Captured Comments Alcohol Use Details Unknown Caffeine Use Details Unknown Tobacco Use Status No Information Smoking Status No Information Sex Female Chief Complaint And Reason For Visit No [...]
--- OUTSIDE RECORDS SUMMARY | 2024-05-08 13:16 | XMS_ITS | Clinical Summary ---
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 ? SECTION 2011 ? ? COLPOSCOPY 2006 JEFFERSON II-III, yearly paps recommended until 2025 ? ? LEEP PROCEDURE 2006 No data on file. 2nd Problems (from 06/06/17 to present) No problems associated with this episode. VIOLETTA Jimenez.....06/12/2017 8:51 AM Encounter for supervision of other normal , first trimester 06/06/2017 10/16/2018 Supervision of normal first 09/28/2011 04/03/2016 Overview (12/07/2011): It's a boy Chronic back/leg pain Abnormal [...] History Relation Name Comments Heart Disease Father CO-45 triple b ypass Cancer Maternal Grandfather Cancer-prostate [...] Outcome GA Total Labor Labor/2nd/3rd Weight Sex Type Anes PTL Lin A1 A5 Name Clin 2007 SAB Comments:miscarried at 12 weeks 012 Term 37w 0d 3.71 kg (8 lb 3 oz) M CS-LT ranv Epidura l N Complications:Shoulder Dysto terra Comments:System Genera hilary. [...] 45-75 2023 Mammogram for age 45-75 2023 Pap test for age 21-65 12/06/2023 , 12/05/2020, 07/23/2016, Additional history exists COVID-19 vaccine series (2023- season) 2024 Influenza for age 9-49 03/29/2024 2, 04/25/2011, 09/29/2009, Additional history exists Tdap Completed 09/29/2009 Hepatitis C screening for age 18-79 Completed 09/12/2011, 09/29/2009 HIV for age 15-65 Completed 06/06/2017, , 09/29/2009 Pneumococcal series for age 6-64 Aged Out No longer eligible based on patient's age to complete this topic Procedures Procedure Name Priority Date/Time Associated Diagnosis Comments MEDICAL CODING MANAGER THIN PREP PAP SCREEN IMAGED Routine 12/05/2020 12:00 PM CDT ANTI HIV 1/2 Routine 06/06/2017 6:01 PM EXPLOSIVE ORDNANCE HANDLER Encounter for supervision of other normal , first trimester ANTI HCV Routine 09/12/2011 11:28 AM EXPLOSIVE ORDNANCE HANDLER Supervision of normal first from Last 3 Months or Most Recently Relevant to Health Maintenance Results * MEDICAL CODING MANAGER THIN PREP PAP SCREEN IMAGED (12/05/2020 12:00 PM CDT) Case Report Gynecologic Cytology Report ? Case: [id number] ? Authorizing Provider: ??Sandra Harrison ??Collected: ? 12/05/2020 1200 ? M, MD ? Ordering Location: ? [facility] ?Received: ?12/07/2020 1007 ? First Screen: ?Kenrick Ascencio ? Specimen: ?MEDICAL CODING MANAGER ThinPrep Vial Screening, Cervical/Vaginal ? 12/15/2020 1:17 PM CDT [facility] INTERPRETATION/ RESULT NEGATIVE FOR INTRAEPITHELIAL LESION OR MALIGNANCY (NIL) (none) 12/15/2020 1:17 PM CDT [facility] LABORAT[facility]-C ENTRAL LABORATORY IMEN ADEQUACY Satisfactory for evaluation No endocervical component seen 12/15/2020 1:17 PM CDT [facility] LABORATORY-C ENTRAL LABORATORY HPV REQUEST HPV and PAP 12/15/2020 1:17 PM CDT [facility] Date of LMP 12/15/2020 1:17 PM CDT [facility] Comment:Ablation Last Pap Date 07/23/2016 12/15/2020 1:17 PM CDT [facility] Last Pap Result NIL 1:17 PM CDT [facility] Comment:Neg hpv Additional Information 12/15/2020 1:17 PM CDT [facility] Comment: Interpreted at [facility] - [address], [place] [address] Automated Review Successful 12/15/2020 1:17 PM T [facility] Comment:Specimen processed s uccessfully by automated agricultural real estate agent device, ThinPrep Imaging System, [employer] ANCILLARY TESTING MEDICAL CODING MANAGER HPV Ordered, Please see separate report 12/15/2020 1:17 PM T [facility] Note The pap test is a [...] and malignant lesions. 12/15/2020 1:17 PM CDT [facility] Other (Cervical/Vagina l) 12/05/2020 12:00 PM CDT 12/07/2020 10:07 AM CDT Sandra Harrison MD PATHOLOGY/ CYTOLOGY [facility] [address] [place] [address], [place] * ANTI HIV 1/2 (06/06/2017 6:01 PM EXPLOSIVE ORDNANCE HANDLER) HIV-1/HIV-2 ANTIBODY Non-Reacti ve Non-Reacti ve 06/07/2017 1:44 PM EXPLOSIVE ORDNANCE HANDLER [facility] Blood BLOOD SPECIMEN / Unknown Venipuncture / Unknown 06/06/2017 6:01 PM EXPLOSIVE ORDNANCE HANDLER 06/06/2017 6:01 PM EXPLOSIVE ORDNANCE HANDLER Narrative [facility] LAB[facility]AT[facility] - 06/07/2017 1:44 PM EXPLOSIVE ORDNANCE HANDLER HIV-1 p24 and HIV-1/HIV-2 Ab not detected Erin Merida TAXICAB DISPATCHER SEND OUTS [facility] LAB[facility]ATORY [address] [place] [address], * ANTI HCV (09/12/2011 11:28 AM EXPLOSIVE ORDNANCE HANDLER) ANTI HCV Non-reacti ve [facility] Blood specimen (specimen) BLOOD SPECIMEN / Unknown 09/12/2011 11:28 AM EXPLOSIVE ORDNANCE HANDLER 09/12/2011 11:20 AM EXPLOSIVE ORDNANCE HANDLER Marion BATISTA SEND OUTS [facility] INTERNAL ZIP [address] [place] [phone] from Last 3 Months or Most Recently Relevant to Health Maintenance Care Teams Brokerage Branch Manager Relationship Specialty Start Date End Date John Singh MD [address] [place] [address] PCP - General Family Practice 01/09/21
--- OUTSIDE RECORDS SUMMARY | 2024-05-08 13:16 | XMS_ITS | Clinical Summary ---
Author Organization [facility] Address [address] [place] [address] Care Team Providers Care Solution Make Up Operator Name Role Phone Clinic, [facility] Primary Care Provider Allergies No known [...] of Treatment Not on file Care Teams Solution Make Up Operator Relationship Specialty Start Date End Date Clinic, [facility] [address] [place] [address] PCP - General 12/25/17
--- OUTSIDE RECORDS SUMMARY | 2024-05-08 13:16 | XMS_ITS | Data Portability ---
Author Organization [facility] Address [address] [facility] [address] [place] Agu[place] [address] Care Team Providers Care Applique Cutter Name Role Phone HANANE COYNE Primary Care Provider [phone] Assessment No assessment recorded. Plan of Treatment Reminders Order Date Submit Date Provider Last Modified By Organization Details Last Modified Time Details Appointments None recorded. Lab None recorded. Referral None recorded. Procedures cyst aspiration (PROC) - by Radiology. Send fluid for Cytology to detect any cancer cells. 2020 021 [facility], [address], [place], [address], 16:07:16 Surgeries None recorded. Imaging None recorded. Medication Orders None recorded. Patient TargetsNo targets recorded. Patient InstructionsNo instructions recorded. Reason for Referral None Reported. Results Created Date Observation Date Name Description Value Unit Range Abnormal Flag Note LastModifiedBy Organization Detail LastModifiedTime 01/25/2001/17/2021 US, renal No observ ation record ed. [email or web address] Not Available 12/28 17:43:27 01/26/20 CT, abdom en + pelvi s, w/ contr ast No observ ation record ed. [email or web address] Not Available 2020 18:49:31 02/15/20 21 02/13/2021 imagi ng/di agnos tic resul t No observ ation record ed. [email or web address] Not Available 2020 12:47:47 Result Notes None recorded. Procedures Surgical History None recorded. Imaging Results Imaging Date Name Status LastModified by Organiz ation Details LastModified Time 01/17/2021 US, renal completed [email or web address] Information n ot available 01/24/2021 17:43:27 01/25/2021 CT, abdomen + pelvis, w/ contrast completed [email or web address] Information not available 01/25/2021 18:49:31 02/13/2021 imaging/diagn ostic result completed [email or web address] Information not available 02/14/2021 12:47:47 Procedure Notes [...] Updated DateTime 01/25/2021 165.1 cm 26.6 kg/m2 01127.78 g 16 /min Eloise Velasco [facility] 01/25/2021 17:33:28 Social History Question Answer Notes LastModified by [email or web address] ion Details LastModified Time Tobacco Smoking Status Former Smoker Eloise Velasco [facility] 01/25/2021 17:40:16 Do You Or Have You Ever Used E-cigarettes Or Vape? Never Used Electronic Cigarettes Information not available 01/25/2021 Do You Or Have You Ever Used Smokeless Tobacco? Never Used Smokeless Tobacco Information not available 01/25/2021 Sex: Unknown Functional Status None recorded. Mental Status None recorded. Family History Nothing Reported Notes:breast cancer- grandmo ther cancer of the [...] Encounter Closed Date Diagnosis/Indication Diagnosis SNOMED-CT Code Diagnosis ICD10 Code [id number] Azucena Hernandez [facility] [address],[facility] [address] [place] [address] 01/25/2021 16:26:25 01/26/2021 08:32:50 Complex renal cyst [id number] N28.1 Health Concerns Section Related Observation LastModified by Organization Detai ls LastModified Time None Recorded Concern Status LastModified by Organization Details LastModified Time None Recorded Advance Directives Directive None Recorded Payers Encounter Date Sequence Insurance Name Policy Number Policy Bates Covered Member ID Bates Member ID Guarantor Name 01/25/2021 1 [facility] (MEDICAID REPLACEMENT - HMO) [id number] Dorothy Ferrarasonia [id number] Dorothy Owens Raynaemma Notes Date Note Type Note Provider Name [...] with her , which was quite helpful. JESUS [place] - [facility] 01/25/2021 18:49:45 OBGyn Episode No OBEpisode recorded.
--- OUTSIDE RECORDS SUMMARY | 2024-05-08 13:16 | XMS_ITS | Continuity of Care Document ---
Author Organization [facility] Address [address] [address] [place] [address] Phone Care Team Providers Care Cotton Program Technician Name Role Phone Bull Rodríguez MD Unavailable [...] [facility], [address] [address], [place], [place], [id number], [place] tel:[phone] [facility] No Information Marcos Gottlieb. [address] [facility], [facility] [address], [place], [place], [id number], [place]. tel:[phone] Referring Provider: Maco Devries MD, [address] [place] [address], [address]. tel:[phone] Family History Family Member Type Diagnosis Age At Onset No Information Payers Payer name Insurance type Covered alliance party ID Authoriza tion(s) [employer] CI [id number] Social History Type Description Quantity Date Captured [...]
--- OUTSIDE RECORDS SUMMARY | 2024-05-08 13:16 | XMS_ITS | Referral Summary ---
Author Organization [facility] Address [address] [place] [address] Care Team Providers Care Batteryman Name Role Phone Clinic, [facility] Primary Care Provider Allergies No known [...] of Treatment Not on file Care Teams Batteryman Relationship Specialty Start Date End Date Clinic, [facility] [address] [place] [address] PCP - General 12/25/17
== END 2024-05-05 11:41 | disposition home or self-care (01) ==
LOC: NFLDREF 05-08 13:05
PROVIDERS: PCP Family Medicine; Referring Provider Family Medicine; Visit Provider Family Medicine
DX: E66.09 Other obesity due to excess calories (principal); F32.9 Major depressive disorder, single episode, unspecified; M25.519 Pain in unspecified shoulder; M46.1 Sacroiliitis, not elsewhere classified; B00.9 Herpesviral infection, unspecified; L03.211 Cellulitis of face
CPT/HCPCS: 87086

== ENCOUNTER 2025-02-11 13:15 | Outpatient (CLI) | payer BC, SELFPAY ==
[2025-02-11 17:51] LABS: Chlamydia DNA Amplified* NOT DETECTED (No Detected); GC DNA Amplified* NOT DETECTED (No Detected)
[2025-02-15 07:00] LABS: HPV Source Cervix
== END 2025-02-11 13:16 | disposition home or self-care (01) ==
PROVIDERS: PCP Family Medicine; Visit Provider Physician Assistant
DX: Z11.3 Encounter for screening for infections with a predominantly sexual mode of transmission (principal); Z12.4 Encounter for screening for malignant neoplasm of cervix; Z11.4 Encounter for screening for human immunodeficiency virus [HIV]; Z11.51 Encounter for screening for human papillomavirus (HPV); Z11.59 Encounter for screening for other viral diseases
CPT/HCPCS: 86592; 86703; 86803; 87340; 87491; 87591; 87624; 87625; 88141; 88142

== ENCOUNTER 2025-03-01 08:08 | Outpatient (CLI) | payer BC, SELFPAY ==
--- NOTE | 2025-03-01 08:45 | CRLHL7_ITS ---
For Patients: As a result of the Cures Act, medical imaging exams and procedure reports are released immediately into your electronic medical record. You may view this report before your referring provider. If you have questions, please contact your health care provider. DIGITAL DIAGNOSTIC BILATERAL MAMMOGRAM USING TOMOSYNTHESIS AND COMPUTER-AIDED DETECTION BILATERAL BREAST ULTRASOUND CLINICAL HISTORY: BILATERAL breast bloody nipple discharge. COMPARISON: 12/07/2020. TECHNIQUE: Digital BILATERAL mammogram in four projections with computer-aided detection. Tomosynthesis was used in this interpretation. Real-time ultrasound imaging of BILATERAL breast with imaging documentation. BREAST COMPOSITION: The breasts are heterogeneously dense, which may obscure small masses. FINDINGS: 3D CC/MLO BILATERAL mammogram images submitted. No suspicious masses or architectural distortion. No suspicious calcifications or adenopathy. Targeted ultrasound of both breasts performed in the subareolar regions. Normal breast tissue is present. No dilated ducts or suspicious mass. IMPRESSION: No suspicious findings. No evidence of malignancy or papilloma. No duct ectasia. RECOMMENDATIONS: Clinical follow-up. Routine screening mammography. A lay language report of this examination will be provided to the patient. BI-RADS Category 2: Benign Dictated by John Sarmiento MD @ 03/01/2025 10:48:02 AM jj/Dictated by: John Sarmiento MD @ 03/01/2025 10:48:00 AM (Electronically Signed)
--- NOTE | 2025-03-01 09:15 | CRLHL7_ITS ---
For Patients: As a result of the Cures Act, medical imaging exams and procedure reports are released immediately into your electronic medical record. You may view this report before your referring provider. If you have questions, please contact your health care provider. SEE DIGITAL DIAGNOSTIC BILATERAL MAMMOGRAM PERFORMED SAME DAY CRL:nani cardoza/Dictated by: John Sarmiento MD @ 03/01/2025 10:48:00 AM (Electronically Signed)
== END 2025-03-01 08:09 | disposition home or self-care (01) ==
LOC: MAMMO 08:08
PROVIDERS: PCP Family Medicine; Visit Provider Physician Assistant
DX: N64.52 Nipple discharge (principal); R92.333 Mammographic heterogeneous density, bilateral breasts
CPT/HCPCS: 76642; 77066; G0279

== ENCOUNTER 2025-03-01 18:59 | Emergency (ER) | payer BC, SELFPAY ==
--- OUTSIDE RECORDS SUMMARY | 2025-03-01 19:01 | XMS_ITS | Encounter Summary ---
Author Organization [facility] Address [address] [place] [address] Care Team Providers Care Third Officer Name Role Phone Unavailable Primary Care Provider Unavailabl e Encounter Details Date Type Department Care Team (Late st Contact Info) Description 04/28/2013 Historical Ophthalmology [facility] Chelsie Velasquez M.D. [address] [place] [address] Social History Tobacco Use Types Packs/Day Years Used Date Smoking Tobacco: Never Assessed Comments Unknown Sex and Gender Information Value Date Recorded Sex Assigned at Female 06/22/2024 2:54 PM WRAPPER CASHIER Legal Sex Female 4:06 AM WRAPPER CASHIER Gender Identity Female 06/22/2024 2:54 PM WRAPPER CASHIER Sexual Orientation Straight 06/22/2024 2: 54 PM WRAPPER CASHIER documented as of this encounter Progress Notes * Chelsie Velasquez M.D. - 04/28/2013 12:12 PM CDT Eye General CHIEF COMPLAINT Right eye iritis, left eye in November. HISTORY OF PRESENT ILLNESS She feels iritis is back and worse. She is on 60 mg of prednisone, and doesn't seem to be helping. She is wondering about a new medication to add. Cylo drops qid right eye 930am. Pred forte drops every mikael right eye at 930am, Rheum appt May 07. Right eye vision, blurry, shadowy, eye pain, vicodinused, light sensitive, wears dark glasses. Sees looks straight and down or off to the side sees black, right eye. No flashes of light. No diplopia. Right eye droopy, tired and redness. WMS: Right eye is still red and bloody and painful even since starting PO prednisone (on 04/24/13). Seems worse compared to when it was in her left eye last year. Since starting dilation gtts yesterday the pain has become intermittent and more dull, prior to starting the pain was constant. Vision still isn't okay. Using the steroid gtts - supposed to be every hour, today 3 times so far. Always sore all over - back, knees, hips, neck joints. All joints hurt all the time. 2-3 headaches per week. Usually hurts on the parietal side (L or R) or sometimes shooting up her neck - dx as tension migraine. Not on any prescription medication for headache. Previously evaluated by Dr. Ross in November 2012 IMPRESSION / REPORT / PLAN #1 Anterior uveitis, right eye --right active since 04/15/13. 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 Symptomatically eye pain has improved since starting cyclopentolate, so pain might be related to ciliary body spasm rather than scleritis To complete the work up, could get Syphilis IgG, Lyme abs, PPD or quantiferon Discussed options for short term control: stronger steroid gtt (Durezol) vs periocular steroid injection Both carry risks of cataract progression and glaucoma She would like to continue prednisolone acetate gtts for a few more days, if inflammation is not improved or resolved then could consider switching to Durezol for a limited period of time. (Durezol QID x 1wk, TID x 1wk, BID x 1wk, daily x 1wk, then back to PF TID x 5d, BID x 1wk, daily x 1wk) She will see rheum again on 05/07/13 --> I wonder if she needs joint films?? (will communicate with Dr. Ross) Even if there is no evidence of systemic inflammatory disease, could consider MTX to prevent or lessen future flares Recommend referal to neurology to assess headaches, I don't think they are related to the anterior uveitis although the headache may be more likely to occur with the stimulus of active anterior uveitis. Might be able to avoid PO prednisone in the future, if Ms. Wilder has a better plan for headache control. (Currently I am cautious about using PO NSAIDs since she is still on prednisone, due to risk of gastric ulcers.) Cont current eye drops: homatropine and PF q1h [place] Follow up with Dr. Campbell in ~1wk Ask PCP Dr. Ware for referral to neurology (here or locally) to determine if medication would help prevent and/or treat the headaches Keep follow up appt with Dr. Ross If returning to [place] again in the future, i would be happy to see Ms. Wilder again Will communicate with Dr. Campbell and Dr. 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
--- OUTSIDE RECORDS SUMMARY | 2025-03-01 19:02 | XMS_ITS | Clinical Summary ---
Author Organization [facility] Address [address] [place] [address] Care Team Providers Care Regional Clinical Director Name Role Phone Unavailable Primary Care Provider Unavailabl e Source Comments Patient records contain information from all sites at [facility]. For routine questions regarding patient records, call [phone] during business hours, M-F 8:00 AM - 5:00 PM Central Time. Record requests for emergency care only can be directed to [phone] at any time.[facility] Allergies No known active allergies Medications prednisoLONE acetate (PRED FORTE) 1 % ophthalmic suspension Administer 1 drop into affected eye(s) as needed. 3 Active celecoxib (CeleBREX) 100 mg capsule celecoxib 100 mg capsule Active DULoxetine (CYMBALTA) [address] capsule Take 60 mg by mouth daily. 1 Active ibuprofen 600 mg tablet Take 1 tablet by mouth every 6 (six) hours as needed. Active ibuprofen 800 mg tablet every 6 (six) hours as needed. Active celecoxib (CeleBREX) 200 mg capsule Take 200 mg by mouth daily. 4 Active DULoxetine (Cymbalta) [address] capsule daily. Active predniSONE (Deltasone) 20 mg tablet as needed. Active Ozempic 1 mg/dose (4 mg/3 mL) injection INJECT 1 mg subcutaneously every week* 4 Active semaglutide (Wegovy) 0.25 mg/0.5 mL pen injector injection Inject 0.25 mg under the skin. 4 Active Active Problems Problem Noted Date Diagnosed Date Dry Eye Syndrome Bilateral 11/14/2020 Scleritis Anterior Bilateral 11/14/2020 Sacroiliitis 11/02/2020 Myofascial Pain Syndrome 10/04/2020 Spondyloarthropathy Human Leukocyte Antigens B27 10/04/2020 Uveitis Anterior Chronic Bilateral 10/04/2020 Rash Face 10/04/2020 Social History Tobacco Use Types Packs/Day Years Used Date Smoking Tobacco: Former Cigarettes [facility] Utilities Answer Date Recorded In the past 12 months has e [employer], gas, oil, or water [employer] threatened to shut off services in your home? No 06/22/2024 Humiliation, Afraid, Rape, and Kick questionnair e Answer Date Recorded Within the last year, have y ou been afraid of your partner or ex-partner? No 08/17/2021 Within the last year, have y ou been humiliated or emotionally abused in other ways by your partner or ex-partner? No Within the last year, have y ou been kicked, hit, slapped, or otherwise physically hurt by your partner or ex-partner? No 08/17/2021 Within the last year, have y ou been raped or forced to have any kind of sexual activity by your partner or ex-partner? No 08/17/2021 Hunger Vital Sign Answer Date Recorded Within the past 12 months, y ou worried that your food would run out before you got the money to buy more. Never true 06/22/20 Within the past 12 months, t he food you bought just didn't last and you didn't have money to get more. Never true 06/22/2024 PRAPARE - Transportation Answer Date Re corded In the past 12 months, has l ack of transportation kept you from medical appointments or from getting medications? No 05/30 In the past 12 months, has l ack of transportation kept you from meetings, work, or from getting things needed for daily living? No 06/22/2024 Housing Stability Answer Date Recorded What is your living situation today? [facility] 06/22/2024 Education Answer Date Recorded What is the highest level of school you have completed or the highest degree you have received? 12th grade 08/17/2021 Comments Unknown Sex and Gender Information Value Date Recorded Sex Assigned at Female 06/22/2024 2:54 PM PROPERTY ECONOMIST Legal Sex Female 4:06 AM PROPERTY ECONOMIST Gender Identity Female 06/22/2024 2:54 PM PROPERTY ECONOMIST Sexual Orientation Straight 06/22/2024 2: 54 PM PROPERTY ECONOMIST Last Filed Vital Signs Vital Sign Reading Time Taken Comments Blood Pressure 137/82 06/23/2024 10:56 AM PROPERTY ECONOMIST Pulse 88 06/23/2024 10:56 AM PROPERTY ECONOMIST Temperature 37.2 C (99 F) 10/04/2020 9:09 AM PROPERTY ECONOMIST Respiratory Rate - - Oxygen Saturation - - Inhaled Oxygen Concentration - - Weight 82.1 kg (181 lb) 06/23/2024 10:56 AM PROPERTY ECONOMIST Height 165 cm (5' 4.96) 06/23/2024 10:56 AM PROPERTY ECONOMIST Body Mass Index 30.16 06/23/2024 10:56 AM PROPERTY ECONOMIST Plan of Treatment Health Maintenance Due Date Last Done Comments CT Colonography 1978 Cologuard 1978 Colonoscopy 1978 Colorectal Cancer Screening 1978 FIT 1978 Fasting Glucose for Diabetes Screening 1978 HIV Screening 1978 Hepatitis C Screening 1978 Lipid (Cholesterol) Screening 1978 Mammogram 1978 Hepatitis B Vaccines (2 of 3 - 19+ 3-dose series) 01/02/2011 12/05/2010, 03/04/1997 Cervical/Vaginal Cancer Screening 12/06/2023 12/05/2020 COVID-19 Vaccine ( season) 2024 Depression Screening (Annual PHQ-2) 07/29/2024 Influenza Vaccine (#1) 2025 8, 04/18/2012, 04/25/2011, Additional history exists DTaP,Tdap,and Td Vaccines (8 - Td or Tdap) 12/06/2027 12/05/2017, 09/29/2009, 09/29/2009, Additional history exists IPV Vaccines Aged Out No longer eligi ble based on patient's age to complete this topic Pneumococcal vaccine (0-49 years) Aged Out No longer eligible based on patient's age to complete this topic Insurance CARE
--- OUTSIDE RECORDS SUMMARY | 2025-03-01 19:02 | XMS_ITS | Clinical Summary ---
Author Organization [facility] Address [address] [place] [address] Care Team Providers Care Cooker Casing Name Role Phone John Singh MD Primary Care Provider + Allergies No known active allergies Medications clindamycin 1% (CLEOCIN-T) 1 % gelIndications:A cne, unspecified acne type Apply topically to affected area(s) 2 times daily. 60 g 11 8 Active doxycycline monohydrate (MONODOX) 100 mg capsuleIndicatio ns:Cough,Follicu litis One twice daily x ten days then one oral every day x ten days 30 capsule 9 Active LORazepam (ATIVAN) 1 mg tabletIndication s:Anxiety and depression Take 1 tablet by mouth every 6 hours if needed for Anxiety. 15 tablet 9 Active sertraline (ZOLOFT) 100 mg tabletIndication s:Anxiety and depression TAKE ONE TABLET BY MOUTH EVERY DAY IN THE MORNING. 30 tablet 4 9 Active oxybutynin XL (DITROPAN XL) 5 mg CR tabletIndication s:Urinary frequency Take 1 Tablet (5 mg) by mouth once daily. 30 Tablet 1 Active Hospital, Clinic, or Other Facility Administered [...] <6.4 % Past Medical History: Diagnosis Date Acne Sees Dr. Abel for it Encounter for supervision of other normal , first trimester 06/06/2017 LGSIL (low grade squamous intraepithelial dysplasia) 10/01 Low back pain L4-5 issues, seeing neurologist for this Migraine 08/02/2011 Past Surgical History: Procedure Laterality Date SECTION 2011 COLPOSCOPY 2005 JEFFERSON II-III, yearly paps recommended until 2025 LEEP PROCEDURE 2006 No data on file. 2nd Problems (from 06/06/17 to present) No problems associated with this episode. Eliz Esqueda RNC.....06/12/2017 8:51 AM Encounter for supervision of other normal , first trimester 06/06/2017 10/16/2018 Supervision of normal first 09/28/2011 04/03/2016 Overview (12/07/2011): It's a boy Chronic back/leg pain Abnormal Quad screen, level 2 ultrasound reassuring. 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 Not on file Not on file Not on file Obstetrics History Para Term [...] 68 02/13/2021 2:15 PM CDT Temperature 37.3 C (99.1 F) 10/16/2018 8:44 AM CDT Respiratory Rate 14 02/13/2021 2:15 PM CDT Oxygen Saturation 97% 02/13/2021 2:15 PM CDT Inhaled Oxygen Concentration - - Weight 88.4 kg (194 lb 12.8 oz) 01/09/2021 1:29 PM CDT Height 166 cm (5' 5.35) 10/16/2018 8:44 AM CDT Body Mass Index 32.07 10/16/2018 8:44 AM CDT Plan of Treatment Health Maintenance Due Date Last Done Comments Hepatitis B series for 19+ (2 of 3 - 19+ 3-dose series) 01/02/2011 12/05/2010, 03/04/1997 Tetanus booster 09/30/2019 09/29/2009, 10/2009, 03/13/1994 BMI [...] COVID-19 vaccine series (2023- season) 2024 Influenza Vaccine (#1) 2025 2, 04/18/2012, 04/25/2011, Additional history exists Hepatitis C screening for age 18-79 Completed 09/12/2011, 09/29/2009 HIV for age 15-65 Completed 06/06/2017, , 09/29/2009 Pneumococcal series for age 6-49 Aged Out No longer eligible based on patient's age to complete this topic Procedures Procedure Name Priority Date/Time Associated Diagnosis Comments ANTENNA RIGGER THIN PREP PAP SCREEN IMAGED Routine 12/05/2020 12:00 PM CDT ANTI HIV 1/2 Routine 06/06/2017 6:01 PM WO[employer] AND PELT GRADER Encounter for supervision of other normal , first trimester (HC) ANTI HCV Routine 09/12/2011 11:28 AM WOOL AND PELT GRADER Supervision of normal first (HC) from Last 3 Months or Most Recently Relevant to Health Maintenance Results * ANTENNA RIGGER THIN PREP PAP SCREEN IMAGED (12/05/2020 12:00 PM CDT) Case Report Gynecologic Cytology Report Case: [id number] Authorizing Provider: Sandra Harrison Collected: 12/05/2020 1200 MMD Ordering Location: [facility] Received: 12/07/2020 1007 First Screen: Kenrick Ascencio Specimen: ANTENNA RIGGER ThinPrep Vial Screening, Cervical/Vaginal 12/15/2020 1:17 PM CDT [facility] INTERPRETATION/ RESULT NEGATIVE FOR INTRAEPITHELIAL LESION OR MALIGNANCY (NIL) (none) 12/15/2020 1:17 PM CDT [facility] [employer] [facility] at 1317 CDT SPECIMEN ADEQUACY Satisfactory for evaluation No endocervical component seen 12/15/2020 1:17 PM CDT [facility] [employer] [facility] HPV REQUEST HPV and PAP 12/15/2020 1:17 PM CDT [facility] [employer] [facility] Date of LMP 12/15/2020 1:17 PM CDT [facility] [employer] [facility] Comment:Ablation Last Pap Date 07/23/2016 12/15/2020 1:17 PM CDT [facility] [employer] [facility] Last Pap Result NIL 1:17 PM CDT [facility] [employer] [facility] Comment:Neg hpv Additional Information 12/15/2020 1:17 PM CDT [facility] [employer] [facility] Comment: Interpreted at [facility] [employer] [facility] Central Laboratory - [address], [place] [address] Automated Review Successful 12/15/2020 1:17 PM CDT [facility] [employer] [facility] Comment:Specimen processed s uccessfully by automated auditor in charge device, ThinPrep Imaging System, [employer] ANCILLARY TESTING ANTENNA RIGGER HPV Ordered, Please see separate report 12/15/2020 1:17 PM CDT [facility] [employer] [facility] Note The pap test is a [...] and malignant lesions. 12/15/2020 1:17 PM CDT [facility] ENTRAL LAB[facility] Other (Cervical/Vagina l) 12/05/2020 12:00 PM CDT 12/07/2020 10:07 AM CDT us Sandra Harrison MD PATHOLOGY/CYTOLOGY Final Result [facility] [address] [place] [address], [place] * ANTI HIV 1/2 (06/06/2017 6:01 PM WOOL AND PELT GRADER) HIV-1/HIV-2 ANTIBODY Non-Reacti ve Non-Reacti ve 06/07/2017 1:44 PM WOOL AND PELT GRADER [facility] TRAL LABORATORY Blood BLOOD SPECIMEN / Unknown Venipuncture / Unknown 06/06/2017 6:01 PM WOOL AND PELT GRADER 06/06/2017 6:01 PM WOOL AND PELT GRADER Narrative [facility] - 06/07/2017 1:44 PM WOOL AND PELT GRADER HIV-1 p24 and HIV-1/HIV-2 Ab not detected us Erin Merida NP SEND OUTS F inal Result Performing Organization Address City[facility]/ZIP Co de Phone Number [facility] [address] [place] [address], [place] * ANTI HCV (09/12/2011 11:28 AM WOOL AND PELT GRADER) ANTI HCV Non-reacti ve [facility] Blood specimen (specimen) BLOOD SPECIMEN / Unknown 09/12/2011 11:28 AM WOOL AND PELT GRADER 09/12/2011 11:20 AM WOOL AND PELT GRADER us Marion BATISTA SEND OUTS Final R esult [facility] INTERNAL ZIP [address] [place] [id number] from Last 3 Months or Most Recently Relevant to Health Maintenance Insurance [facility] Care Teams Cooker Casing Relationship Specialty Start Date End Date John Singh MD [address] [place] [address] PCP - General Family Practice 01/09/21
--- OUTSIDE RECORDS SUMMARY | 2025-03-01 19:02 | XMS_ITS | Clinical Summary ---
Author Organization [facility] Address [address] [place] [address] Care Team Providers Care Candy Depositing Machine Operator Name Role Phone [facility] Primary Care Provider Allergies No known active allergies Medications prednisoLONE acetate (PRED FORTE) 1 % ophthalmic suspIndications :Iritis Place 1 drop into both eyes 4 times daily Active oxyCODONE IR (ROXICODONE) 5 MG tabletIndicatio ns:S/P section Take 1 tablet (5 mg) by mouth every 4 hours as needed for moderate to severe pain 30 tablet 8 Active senna-docusate (SENOKOT-S;KENAN COLACE) 8.6-50 MG per tabletIndicatio ns:S/P section Take 1 tablet by mouth 2 times daily as needed for constipation 30 tablet 8 Active Active Problems Problem Noted Date Diagnosed Date S/P section 12/27/2017 care and examination 12/25/2017 Indication for care in labor or delivery 018 Immunizations Immunization Administration Dates Next Due Influenza (intradermal) 04/18/2012 Tdap (Adult) Unspecified Formulation 09/29/2009 Social History Tobacco Use Types Packs/Day Years Used Date Smoking Tobacco: Some Days Smokeless Tobacco: Never Alcohol Use Standard Drinks/Week Comments No 0 (1 standard drink = 0.6 oz pur e alcohol) Comments No Sex and Gender Information Value Date Recorded Sex Assigned at Not on file Legal Sex Female 3:19 AM TRAINING INTERN Gender Identity Not on file Sexual Orientation Not on file Last Filed Vital Signs Vital Sign Reading Time Taken Comments Blood Pressure 129/79 12/27/2017 8:06 AM CDT Pulse 71 12/27/2017 8:06 AM CDT Temperature 36.7 C (98 F) 12/27/2017 8:06 AM CDT Respiratory Rate 16 12/27/2017 11:25 AM CDT Oxygen Saturation 96% 12/26/2017 12:18 AM CDT Inhaled Oxygen Concentration - - Weight 85.3 kg (188 lb) 12/24/2017 10:39 PM CDT Height 167.6 cm (5' 6) 12/24/2017 10:39 PM CDT Body Mass Index 30.34 12/24/2017 10:39 PM CDT Plan of Treatment Not on file Care Teams Candy Depositing Machine Operator Relationship Specialty Start Date End Date [facility] [address] [place] [address] PCP - General 12/25/17
[2025-03-01 19:07] VITALS: BP 112/64; BP 127/70; PULSE 106; PULSE 112; RESP 16; RESP 18; TEMP 36.7; O2SAT 97; O2SAT 99; BMI 26.5
[2025-03-01 21:07] VITALS: BP 116/74; PULSE 102; RESP 16; TEMP 37.7; O2SAT 96
--- NOTE | 2025-03-01 21:30 | ED_ITS ---
HPI - General Adult General Chief complaint: Head Injury/Pain Stated complaint: Swelling on RT side of face, bumps down her neck Time Seen by Provider: 03/01/25 20:39 History of Present Illness HPI narrative: This 45-year-old female comes in reporting pain and swelling in the right cheek of her face since yesterday. She states that she also feels some pain radiating down into the right side of her neck. She reports that she feels some lumps also extending down into her right upper chest. She reports a history of some autoimmune conditions. She does not report any fevers. She states that this is making her anxious and attributes this to the cause of her headache currently. Related Data Home Medications ?Medication ?Instructions ?Recorded ?Confirmed valacyclovir 1 gram tablet 1,000 mg PO QDAY PRN 02/11/25 Previous Rx's ?Medication ?Instructions ?Recorded celecoxib 200 mg capsule (Celebrex) 200 mg PO BID #180 caps 05/05/24 hydrocodone 5 mg-acetaminophen 325 1 tab PO TID PRN pa in #20 tabs 05/05/24 mg tablet tizanidine 4 mg tablet 4 mg PO BID PRN muscle spast icity 05/05/24 #30 tabs duloxetine 60 mg capsule,delayed 60 mg PO QDAY #90 cap s 02/17/25 release methylprednisolone 4 mg tablets in See Rx Instructions PO .COMPLEX 03/01/25 a dose pack (Medrol ([place])) #21 ea Allergies Allergy/AdvReac Type Severity Reaction Status Date / Time No Known Drug Allergies Allergy Verified 02/11/25 12:50 Review of Systems Status of ROS: Reports: 10 or more systems reviewed and unremarkable except as noted in History and below Narrative: Constitutional: No fevers, no weight gain or loss. Eyes: No discharge. No vision changes. HENT: No congestion, no sore throat. Reports some pain in her right ear. He does not have any dental pain. Cardiovascular: No chest pain, no palpitations. Respiratory: No shortness of breath, no wheezes, no cough. Gastrointestinal: No abdominal pain, no vomiting, no diarrhea. Genitourinary: No dysuria, no hematuria. Musculoskeletal: Normal range of motion. Skin: No rashes, no pruritis. Neurological: No dizziness, weakness, sensory change, speech change. Endo/Heme/Allergies: No bruising or bleeding. No polydipsia. Pysch: no suicidality, no anxiety, no insomnia. All other systems reviewed and are negative. [facility] Medical History Pharyngitis ?J02.9 - Acute pharyngitis, unspecified (ICD-10) Herpes simplex ?B00.9 - Herpesviral infection, unspecified (ICD-10) Generalized anxiety disorder ?F41.1 - Generalized anxiety disorder (ICD-10) Major depression, recurrent, chronic ?F33.9 - Major depressive disorder, recurrent, unspecified (ICD-10) Seizure disorder ?G40.909 - Epilepsy, unspecified, not intractable, without status epilepticus (ICD-10) Rectal hemorrhage (12/23/20) ?K62.5 - Hemorrhage of anus and rectum (ICD-10) Premature delivery ?O60.10X0 - labor with delivery, unspecified trimester, not applicable or unspecified (ICD-10) Panic attack ?F41.0 - Panic disorder [episodic paroxysmal anxiety] (ICD-10) Occipital neuralgia (08/13/11) ?M54.81 - Occipital neuralgia (ICD-10) Obstructive sleep apnea syndrome ?G47.33 - Obstructive sleep apnea (adult) (pediatric) (ICD-10) Iritis (04/15/13) ?H20.9 - Unspecified iridocyclitis (ICD-10) Inflammation of sacroiliac joint ?M46.1 - Sacroiliitis, not elsewhere classified (ICD-10) Infection due to severe acute respiratory syndrome coronavirus 2 (SARS-CoV-2) (07/2020) ?U07.1 - COVID-19 (ICD-10) 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) ?M47.899 - Other spondylosis, site unspecified (ICD-10) Herpes zoster ?B02.9 - Zoster without complications (ICD-10) Fibromyalgia ?M79.7 - Fibromyalgia (ICD-10) Dysmenorrhea ?N94.6 - Dysmenorrhea, unspecified (ICD-10) 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 (skin-picking) disorder (ICD-10) Complex renal cyst ?N28.1 - Cyst of kidney, acquired (ICD-10) Surgical History Status post endometrial ablation (02/16/20) ?Z98.890 - Other specified postprocedural states (ICD-10) History of tubal ligation (12/25/17) ?Z98.51 - Tubal ligation status (ICD-10) History of loop electrosurgical excision procedure (LEEP) of cervix (2004) ?Z98.890 - Other specified postprocedural states (ICD-10) History of laparoscopic cholecystectomy (11/04/17) ?Z90.49 - Acquired absence of other specified parts of digestive tract (ICD- 10) History of section (12/25/17) ?Z98.891 - History of uterine scar from previous surgery (ICD-10) History of section (2011) ?Z98.891 - History of uterine scar from previous surgery (ICD-10) Family History Maternal Grandmother Breast cancer, Onset Age: 70 Ovarian cancer Paternal Grandfather Colon cancer, Onset Age: 65 Paternal Grandmother Diabetes Father Myocardial infarction, Onset Age: 42 Heart disease High blood pressure High cholesterol Other Seizure disorder Social History Narrative: does not drink alcohol 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 , 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, 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 What is your current living situation?: I presently have a place to live In the past 12 months, utilities in danger of being shut off: no In past 12 months, lack of transportation kept you from medical appts, meetings, work, or getting things needed for daily living: no In the past 12 mos, the food you bought just didn't last and you didn't have money to buy more?: never true Smoking Status: Former smoker How often do you have a drink containing alcohol: never AUDIT-C Alcohol total score: 0 Non-prescribed substance use: denies use How often does anyone, including family, friends and others, physically hurt you : never How often does anyone, including family, friends and others, insult or talk down to you: never How often does anyone, including family, friends and others, threaten you with harm: never How often does anyone, including family, friends and others, scream or curse at you: never Are you currently sexually active: Yes Are you using contraception or practicing any form of control: Yes (tubal ligation) Exam Narrative: Exam Narrative: Constitutional: Well-developed, well-nourished, no acute distress. HEENT: Her right cheek has erythema with swelling. Neck: Normal range of motion. Supple. Diffuse tenderness in the right anterior portion of her neck. No palpable lumps. Heart: Regular. No murmurs. Normal rate. Intact distal pulses. Lungs: Clear to auscultation. No chest discomfort. No wheezes, rhonchi, or rales. Abdomen: Normal bowel sounds. Nontender. No rebound tenderness. Genitalia: Deferred. Back: No midline tenderness. Normal range of motion. Extremities: Normal range of motion. No injury. Skin: Intact. No rash. Warm. No erythema or pallor. Neurologic: No altered sensation. No weakness. Alert and oriented. Psychiatric: No suicidality. No anxiety or depression. No insomnia. Nursing notes and vitals signs are reviewed. Const: Vital Signs, click to edit/add: Vital Signs - 24 hr 03/01/25 19:07 Temperature 98.0 F Pulse Rate [Pulse Oximeter] 106 H Respiratory Rate 18 Blood Pressure [Ri ght Upper Arm] 127/70 Pulse Oximetry 99 Oxygen Delivery Me thod Room Air Course Vital Signs Vital signs: Initial Vital Signs Temperature 98.0 F 03/01/25 19:07 Temperature Source Temporal Artery Scan 03/01/25 19:07 Pulse Rate 106 H 03/01/25 19:07 Respiratory Rate 18 03/01/25 19:07 Blood Pressure 127/70 03/01/25 19:07 Blood Pressure Mean 89 03/01/25 19:07 Blood Pressure Position Sitting 03/01/25 19:07 Pulse Oximetry 99 03/01/25 19:07 Oxygen Delivery Method Room Air 03/01/25 19:07 Vital Signs Temperature 98.0 F 03/01/25 19:07 Pulse Rate 106 H 03/01/25 19:07 Respiratory Rate 18 03/01/25 19:07 Blood Pressure 127/70 03/01/25 19:07 Pulse Oximetry 99 03/01/25 19:07 Oxygen Delivery Method Room Air 03/01/25 19:07 Temperature 98.0 F 03/01/25 19:07 Pulse Rate 106 H 03/01/25 19:07 Respiratory Rate 18 03/01/25 19:07 Blood Pressure 127/70 03/01/25 19:07 Pulse Oximetry 99 03/01/25 19:07 Oxygen Delivery Method Room Air 03/01/25 19:07 Medical Decision Making MDM Narrative Medical decision making narrative: This patient has erythema and swelling in her right cheek that is suspicious for a cellulitis. There is no palpable abscess or sign of drainage. She does not report any dental pain. She has a fair amount of anxiety regarding this. She reports history of some autoimmune conditions but is not currently taking any steroid or other immune modulator. I did discuss lab and imaging options but the patient declined these for now. She did receive an oral dose of dexamethasone 10 mg and I provided a prescription for Keflex and [place] from the [facility] machine. A prescription for Medrol Dosepak was sent to her pharmacy. Discharge Plan Discharge Clinical Impression: Cellulitis Patient Disposition: Home, Self-Care Condition: Stable Additional Instructions: Take medication as prescribed. Follow up with MD return if worsening symptoms occur. Prescriptions: New methylprednisolone [Medrol ([place])] 4 mg tablets,dose pack See Rx Instructions .ROUTE .COMPLEX Qty: 21 0RF Rx Instructions: orally per package directions No Action valacyclovir 1 gram tablet 1,000 mg PO QDAY PRN celecoxib [Celebrex] 200 mg capsule 200 mg PO BID Qty: 180 3RF tizanidine 4 mg tablet 4 mg PO BID PRN (Reason: muscle spasticity) Qty: 30 1RF hydrocodone-acetaminophen 5-325 mg tablet 1 tab PO TID PRN (Reason: pain) Qty: 20 0RF duloxetine 60 mg capsule,delayed release(DR/EC) 60 mg PO QDAY Qty: 90 1RF Follow Up/Referrals: John Singh MD [Primary Care Provider, Family Practice] Stand Alone Forms: [facility] Inst[facility]
== END 2025-03-01 22:06 | disposition home or self-care (01) ==
LOC: ED 21:56
PROVIDERS: Emergency Provider Emergency Medicine Emergency Medical Services; PCP Family Medicine
DX: L03.211 Cellulitis of face (principal); N64.52 Nipple discharge; R92.333 Mammographic heterogeneous density, bilateral breasts
CPT/HCPCS: 99283; 99284; J1100

== ENCOUNTER 2025-05-19 15:35 | Emergency (ER) | payer BC, SELFPAY ==
--- OUTSIDE RECORDS SUMMARY | 2025-05-19 15:50 | XMS_ITS | Data Portability ---
Author Organization [place] [facility] Address [address] [place] [address] Assessment No assessment recorded. Plan of Treatment Reminders Order Date Submit Date Provider Last Modified By Organization Details Last Modified Time Details Appointments None recorded. Lab None recorded. Referral None recorded. Procedures cyst aspiration (PROC) - by Radiology. Send fluid for Cytology to detect any cancer cells. 2020 021 [facility] Radiology, [address], [place], [address], 16:07:16 Surgeries None recorded. Imaging None recorded. Medication Orders None recorded. Patient TargetsNo targets recorded. Patient InstructionsNo instructions recorded. Reason for Referral None Reported. Results Created Date Observation Date Name Description Value Unit Range Abnormal Flag Note LastModifiedBy Organization Detail LastModifiedTime 01/25/20 21 01/17/2021 US, renal No observ ation record ed. [email or web address] Not Available 12/28 17:43:27 01/26/[address], abdom en + pelvi s, w/ contr ast No observ ation record ed. [email or web address] Not Available 2020 18:49:31 02/15/20 21 02/13/2021 imagi ng/di agnos tic resul t No observ ation record ed. [email or web address] Not Available 2020 12:47:47 Result Notes None recorded. Medical Equipment None Reported. [...] Updated DateTime 01/25/2021 165.1 cm 26.6 kg/m2 95270.78 g 16 /min Eloise Velasco [facility] 01/25/2021 17:33:28 Social History None recorded. Functional Status Question Answer Note LastModified by Organizat ion Details LastModified Time Do you or have you ever used smokeless tobacco? Never used smokeless tobacco Information not available 01/25/2021 Do you or have you ever used e-cigarettes or vape? Never used electronic cigarettes Information not available 01/25/2021 Mental Status None recorded. Family History Nothing [...] Diagnosis/Indication Diagnosis SNOMED-CT Code Diagnosis ICD10 Code Diagnosis IMO Codes Diagnosis Note [id number] Chuckie Lindsay MD [facility] [address] [address],[address] [place] [address] 01/25/2021 16:26:25 01/26/2021 08:32:50 Complex renal cyst [id number] N28.1 This is a complicate d. situation and I do want to make sure we make the right decision.W ill start with aspiration of the renal cyst by Radiology with the fluid being sent for cytology. This will test for cancer cells. Decompress ing the cyst will also be a test as to weather she feels better. Health Concerns Section Related Observation LastModified by Organization Detai ls LastModified Time None Recorded Concern Status LastModified by Organization Details LastModified Time None Recorded Advance Directives Directive None Recorded Payers Insurance Date Sequence Insurance Name Policy Number Policy Bates Covered Member ID Bates Member ID Guarantor Name 02/01/2021 1 [id number] (MEDICA[place]AC[place] - HMO) [facility] Dorothy Wilder [id number] Dorothy Wilder Notes Date Note Type Note Provider Name and Address Organization Details Recorded Time 01/25/2021 text/html She is having sharp and constant pains in her back. She also has urinary urgency and nocturia. As part of this work up she's had an MRI, ultrasound and CT scan. These have confiremd a large, mostly benign appearing right lower pole renal cyst. She came with her , which was quite helpful. Azucena hutchinson [facility] 01/25/2021 18:49:45 OBGyn Episode No OBEpisode recorded.
[2025-05-19 15:59] VITALS: BP 106/73; PULSE 120; RESP 20; TEMP 37.7; O2SAT 97; BMI 27.3
[2025-05-19 16:40] LABS: Strep A DNA Probe* NOT DETECTED (Not Detectd)
--- NOTE | 2025-05-19 16:45 | ED_ITS ---
HPI - General Adult General Date Seen: 05/19/25 Chief complaint: Headache/Migraine Stated complaint: Migraine Time Seen by Provider: 05/19/25 16:39 History of Present Illness HPI narrative: 45-year-old female who has history of sleep apnea, occipital neuralgia, HLA B27 spondyloarthropathy, depression, anxiety, fibromyalgia, migraine headaches, presenting to the ER today with headache and sore throat . She has a low-grade fever noted triage. She reports that she has had a headache for about 2 weeks and developed a sore throat today and a fever since lst night. She does have a history of HLA B 27 ankylosing spondylitis and does have a history of migraine headaches and tension headaches. She says she gets these patterns of headaches that tend to be on the right side of her head and the very difficult for her to go way. In the past sometimes she need to come to the ER and get a combination of medications including pain med, nausea med, and antihistamine to get her headache to go way. Her current headache started about 2 weeks ago. It was similar in onset and location and character to her previous bad headaches. It was not abrupt in onset. No head trauma. No blurry vision or double vision. No focal numbness or weakness in her arms or legs. No associated neck pain. It she really has not been able to get it to completely go away but it was better several days ago. Since Saturday it has been worse again. No particular reason why got worse. Also since yesterday she started to run a fever and had a fever up to 102 F yesterday night. Today she is also having a sore throat. Headache is low mostly centered on the right parietal side of her head and around her right ear. She also notes decreased hearing in both of her ears. No abdominal pain. No cough. No nasal congestion. No known sick contacts. She has a 7-year-old son who is not having similar symptoms Related Data Previous Rx's ?Medication ?Instructions ?Recorded celecoxib 200 mg capsule (Celebrex) 200 mg PO BID #180 caps 05/05/24 hydrocodone 5 mg-acetaminophen 325 1 tab PO TID PRN pa in #20 tabs 05/05/24 mg tablet duloxetine 60 mg capsule,delayed 60 mg PO QDAY #90 cap s 02/17/25 release hydrocodone 5 mg-acetaminophen 325 1 - 2 tab PO Q4-6H PRN pain #10 05/19/25 mg tablet tabs Allergies Allergy/AdvReac Type Severity Reaction Status Date / Time No Known Drug Allergies Allergy Verified 05/19/25 19:26 [facility] Medical History Pharyngitis ?J02.9 - Acute pharyngitis, unspecified (ICD-10) Herpes simplex ?B00.9 - Herpesviral infection, unspecified (ICD-10) Generalized anxiety disorder ?F41.1 - Generalized anxiety disorder (ICD-10) Major depression, recurrent, chronic ?F33.9 - Major depressive disorder, recurrent, unspecified (ICD-10) Seizure disorder ?G40.909 - Epilepsy, unspecified, not intractable, without status epilepticus (ICD-10) Rectal hemorrhage (12/23/20) ?K62.5 - Hemorrhage of anus and rectum (ICD-10) Premature delivery ?O60.10X0 - labor with delivery, unspecified trimester, not applicable or unspecified (ICD-10) Panic attack ?F41.0 - Panic disorder [episodic paroxysmal anxiety] (ICD-10) Occipital neuralgia (08/13/11) ?M54.81 - Occipital neuralgia (ICD-10) Obstructive sleep apnea syndrome ?G47.33 - Obstructive sleep apnea (adult) (pediatric) (ICD-10) Iritis (04/15/13) ?H20.9 - Unspecified iridocyclitis (ICD-10) Inflammation of sacroiliac joint ?M46.1 - Sacroiliitis, not elsewhere classified (ICD-10) Infection due to severe acute respiratory syndrome coronavirus 2 (SARS-CoV-2) (07/2020) ?U07.1 - COVID-19 (ICD-10) 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) ?M47.899 - Other spondylosis, site unspecified (ICD-10) Herpes zoster ?B02.9 - Zoster without complications (ICD-10) Fibromyalgia ?M79.7 - Fibromyalgia (ICD-10) Dysmenorrhea ?N94.6 - Dysmenorrhea, unspecified (ICD-10) 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 (skin-picking) disorder (ICD-10) Complex renal cyst ?N28.1 - Cyst of kidney, acquired (ICD-10) Surgical History Status post endometrial ablation (02/16/20) ?Z98.890 - Other specified postprocedural states (ICD-10) History of tubal ligation (12/25/17) ?Z98.51 - Tubal ligation status (ICD-10) History of loop electrosurgical excision procedure (LEEP) of cervix (2004) ?Z98.890 - Other specified postprocedural states (ICD-10) History of laparoscopic cholecystectomy (11/04/17) ?Z90.49 - Acquired absence of other specified parts of digestive tract (ICD- 10) History of section (12/25/17) ?Z98.891 - History of uterine scar from previous surgery (ICD-10) History of section (2011) ?Z98.891 - History of uterine scar from previous surgery (ICD-10) Family History Maternal Grandmother Breast cancer, Onset Age: 70 Ovarian cancer Paternal Grandfather Colon cancer, Onset Age: 65 Paternal Grandmother Diabetes Father Myocardial infarction, Onset Age: 42 Heart disease High blood pressure High cholesterol Other Seizure disorder Social History Narrative: does not drink alcohol 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 , 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, 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 What is your current living situation?: I presently have a place to live In the past 12 months, utilities in danger of being shut off: no In past 12 months, lack of transportation kept you from medical appts, meetings, work, or getting things needed for daily living: no In the past 12 mos, the food you bought just didn't last and you didn't have money to buy more?: never true Smoking Status: Former smoker How often do you have a drink containing alcohol: never AUDIT-C Alcohol total score: 0 Non-prescribed substance use: denies use How often does anyone, including family, friends and others, physically hurt you : never How often does anyone, including family, friends and others, insult or talk down to you: never How often does anyone, including family, friends and others, threaten you with harm: never How often does anyone, including family, friends and others, scream or curse at you: never Are you currently sexually active: Yes Are you using contraception or practicing any form of control: Yes (tubal ligation) service: No Exam Narrative: Exam Narrative: Constitutional: Appears well-developed and well-nourished. Alert. Conversant, but uncomfortable and sometimes winces and holds her right ear because of headache HENT: Head: Atraumatic. No depressed skull fracture, Raccoon Eyes, Hatfield's sign, or hemotympanum. Face normal. TMs normal Right ear: Mastoid, pinna, canal are normal. There is a small amount of fluid behind the TM but there is no erythema or bulging. Fluid is not purulent Left ear: Mastoid, pinna, canal are normal. There is fluid behind the TM but no erythema or bulging. Nose: Nose normal. No rhinorrhea. Mouth/Throat: Oral mucosa is clear and moist. no trismus. She has erythema and swelling of her pharynx, both tonsils. Tonsils are symmetric. Uvula is m idline. Airway is widely patent. No stridor. She does have a few exudates on her tonsils. Eyes: Conjunctivae normal. EOM normal. Pupils equal, round, and reactive to light. No scleral icterus. Neck: Normal range of motion. Neck supple. No tracheal deviation present. Cardiovascular: Normal rate, regular rhythm. No gallop. No friction rub. No murmur heard. Normal capillary refill x4 extremities Pulmonary/Chest: Effort normal. No stridor. No respiratory distress. No wheezes. No rales. No rhonchi . No tenderness. Abdominal: Soft. Bowel sounds normal. No distension. No hepatosplenomegaly. No mass. No tenderness. No rebound. No guarding. Musculoskeletal: RUE: Normal range of motion. No tenderness. No deformity LUE: Normal range of motion. No tenderness. No deformity RLE: Normal range of motion. No edema. No tenderness. No deformity LLE: Normal range of motion. No edema. No tenderness. No deformity Lymph: No anterior or posterior cervical adenopathy. She does have some small, nontender swollen submental lymph nodes Neurological: Alert and oriented to person, place, and time. Normal strength. CN II-VII intact. No sensory deficit. GCS eye subscore is 4. GCS verbal subscore is 5. GCS motor subscore is 6. Normal coordination Skin: Skin is warm and dry. No rash noted. No pallor. Normal capillary refill. Psychiatric: Normal mood. Normal affect allowing for discomfort. Const: Vital Signs, click to edit/add: Vital Signs - 24 hr 05/19/25 15:59 05/19/25 21:24 Temperature 99.9 F H Pulse Rate [Pulse Oximeter] 120 H 75 Respiratory Rate 20 18 Blood Pressure [Ri t Upper Arm] 106/73 137/78 Pulse Oximetry 97 98 Oxygen Delivery Me thod Room Air Room Air Course Course ED Course: [id number] sleeping but arousable. Said her headache is only a little bit better. She is able to walk. No ataxia. Given leukocytosis and fairly persistent headache, we are going to obtain imaging to make sure there is not a vascular problem such as a dissection but also imaging of the neck to look for possible retropharyngeal abscess or other infection causing her leukocytosis, fever, neck pain and headache. Vital Signs Vital signs: Initial Vital Signs Temperature 99.9 F H 05/19/25 15:59 Temperature Source Temporal Artery Scan 05/19/25 15:59 Pulse Rate 120 H 05/19/25 15:59 Respiratory Rate 20 05/19/25 15:59 Blood Pressure 106/73 05/19/25 15:59 Blood Pressure Mean 84 05/19/25 15:59 Pulse Oximetry 97 05/19/25 15:59 Oxygen Delivery Method Room Air 05/19/25 15:59 Vital Signs Temperature 99.9 F H 05/19/25 15:59 Pulse Rate 120 H 05/19/25 15:59 Respiratory Rate 20 05/19/25 15:59 Blood Pressure 106/73 05/19/25 15:59 Pulse Oximetry 97 05/19/25 15:59 Oxygen Delivery Method Room Air 05/19/25 15:59 Temperature 99.9 F H 05/19/25 15:59 Pulse Rate 75 05/19/25 21:24 Respiratory Rate 18 05/19/25 21:24 Blood Pressure 137/78 05/19/25 21:24 Pulse Oximetry 98 05/19/25 21:24 Oxygen Delivery Method Room Air 05/19/25 21:24 Medications Administered Medications: Discontinued Medications Generic Name Dose Route Start Last Admin Trade Name Heather PRN Reason Stop Dose Admin Dexamethasone 10 mg 05/19/25 20:05 05/19/25 20:28 Dexamethasone 4 Mg/Ml Vial IVP 05/19/25 20:06 10 mg ONCE ONE Administration Diphenhydramine HCl 12.5 mg 05/19/25 17:01 05/19/25 17:30 Diphenhydramine 50 Mg/Ml Inj IVP 05/19/25 17:02 12.5 mg ONCE ONE Administration Hydromorphone HCl 0.5 mg 05/19/25 18:57 05/19/25 20:32 Hydromorphone 0.5 Mg/0.5 Ml Inj IVP 0.5 mg Q1H PRN Administration Pain Sodium Chloride 1,000 mls @ 1,000 mls/hr 05/19/25 17:15 05/19/25 19:13 0.9 % Sodium Chloride 1000 Ml IV 05/19/25 18:14 Infused .Q1H KYA Infusion Ampicillin Sodium/Sulbactam 100 mls @ 200 mls/hr 05/19/25 20:05 05/19/25 20:36 Sodium 3 gm/ Sodium Chloride IVPB 05/19/25 20:06 200 mls/hr ONCE ONE Administration Ketorolac Tromethamine 15 mg 05/19/25 17:01 05/19/25 17:30 Ketorolac 15 Mg/Ml Inj IVP 05/19/25 17:02 15 mg ONCE ONE Administration Metoclopramide HCl 10 mg 05/19/25 17:01 05/19/25 17:30 Metoclopramide Hcl 5 Mg/Ml Inj IVP 05/19/25 17:02 10 mg ONCE ONE Administration Oxycodone/Acetaminophen 1 tab 05/19/25 20:51 05/19/25 21:20 Oxycodone/Apap 5-325 Tablet PO 05/19/25 20:52 1 tab ONCE ONE Administration Medical Decision Making [facility] Narrative Medical decision making narrative: 45-year-old female presenting to the ER today with concern for headache, sore throat, fever. Terms of her headache sexually been present for couple of weeks but is about worse over the past couple of days. She does report a history of trouble with migraines and has had headaches similar to this in the past. Headache is mostly centered around the right parietal scalp and around the right ear and a little bit into the right side of jaw/upper neck. Overall headache was not abrupt in onset so overall low suspicion for vascular catastrophe such as subarachnoid. She says that it similar overall in its onset and location to her previous headaches. Our initial plan was to manage supportively with headache combination of medications and supportive care. She also has a sore throat and clinical evidence for pharyngitis. I do not see any evidence for peritonsillar abscess, uvulitis, retropharyngeal abscess or any airway compromise on my clinical exam. Rapid strep is negative. COVID/influenza/RSV is negative. [place] is negative. CBC does show a white count elevated at 17. She has a low-grade fever here of 99.9 but reports fever 102 at home last night. Treated with IV Unasyn for potential bacterial pharyngitis as well as IV Decadron because of her tonsillar swelling. While in the ER her headache actually got worse and she had increasing throat pain. We did obtain advanced imaging with noncontrast head CT (normal) and CT angiograms of her head neck to make sure there were no vascular anomaly such as carotid dissection for any other problems from the pharyngitis such as an occult retropharyngeal abscess or peritonsillar abscess. Fortunately angiograms are normal. Consider possible meningitis. However since her headache is overall similar to previous headaches and it seems as though her fever is more likely related to pharyngitis. At this point I feel that the risk and discomfort of lumbar puncture would outweigh the benefit. Ultimately pain was improved after additional pain medications. Patient called her boyfriend to come pick her up, even before I discussed her CT results. Patient is comfortable with plan for discharge home. Her boyfriend arrived can take her home. We reviewed opiate and sedation precautions. [facility] prescription for out Augmentin 875/125 1 tablet p.o. b.i.d. for 7 days. Unfortunately [facility] does not have any pain killer stocked night. I sent prescription for Madison to the patient's pharmacy at [facility]. She will pick it up morning. Precautions for return to the ER reviewed. Lab Data Labs: Lab Results 05/19/25 05/19/25 05/19/25 Range/Units 16:00 17:24 17:25 WBC 17.42 H (4.50-11.00) K/uL RBC 4.51 (4.00-5.20) m/uL Hgb 13.7 (12.0-16.0) gm/dL Hct 40.9 (33.0-51.0) % MCV 91 (80-100) fL MCH 30 (26-34) pg MCHC 34 (32-36) gm/dL RDW Coeff of Vince 13.4 (11.5-15.5) % Plt Count 293 (140-440) K/uL Neut % (Auto) 77.2 H (42.0-72.0) % Lymph % (Auto) 14.8 L (20-44) % [place] % (Auto) 7.2 (0.0-11.0) % Eos % (Auto) 0.5 (0.0-7.0) % Baso % (Auto) 0.1 (0.0-3.0) % Neut # (Auto) 13.40 H (1.7-7.0) K/uL Lymph # (Auto) 2.60 (0.90-2.90) K/uL [place] # (Auto) 1.30 H (0.00-0.90) K/UL Eos # (Auto) 0.10 (0.00-0.50) K/uL Baso # (Auto) 0.00 (0.00-0.30) K/uL Abs Immat Gran (auto) 0.00 (0.00-0.30) K/uL Imm/Tot Granulo (auto) 0.2 % Sodium 141 (135-149) mmol/L Potassium 3.5 L (3.6-5.1) mmol/L Chloride 102 (96-114) mmol/L Carbon Dioxide 31 (20-32) mmol/L Anion Gap 8 (7-15) mEq/L BUN 13 (5-24) mg/dL Creatinine 0.9 (0.5-1.5) mg/dL Estimated Creat Clear 69.53 Estimated GFR 79 ml/min Glucose 122 H (60-115) mg/dL Calcium 9.2 (8.4-10.6) mg/dL HCG, Qual Negative (Negative) SARS-CoV-2 (PCR) Negative SARS-CoV-2 (Negative) Monoscreen Negative (Negative) Influenza Type A (PCR) Negative PCR FLU A (Negative) Influenza Type B (PCR) Negative PCR FLU B (Negative) RSV (PCR) Negative PCR RSV (Negative) Group A Strep DNA NOT DETECTED (Not Detectd) Imaging Data CT scan - head: Attestation: I have reviewed the pertinent imaging results. Radiologist's impression: IMPRESSION: 1. 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 2. No acute intracranial abnormality. CTA neck: Attestation: I have reviewed the pertinent imaging results. My impression: No definite soft tissue abscess by my read. Radiologist's impression: Preliminary Report: No large vessel occlusion or flow-limiting stenosis of the proximal intracranial or extracranial arteries. Full dictation to follow. CTA head: Attestation: I have reviewed the pertinent imaging results. Radiologist's impression: Preliminary Report: No large vessel occlusion or flow-limiting stenosis of the proximal intracranial or extracranial arteries. Full dictation to follow. Discharge Plan Discharge Clinical Impression: Headache, Pharyngitis Patient Disposition: Home, Self-Care Condition: Stable Instructions: Pharyngitis (ED), Acute Headache (DC) Additional Instructions: As we discussed, I do think you have an infection in her tonsils and we are going to treat this with antibiotic called Augmentin. So far the workup for her headache looks good. However if you have worsening headache, high fever, severe neck pain, vomiting, or other worsening symptoms, please return to the ER right away. Week affect he should be getting better over the next 24-48 hours. If you are not substantially improved within 48 hours, please see your doctor or come back to the ER for recheck. Use caution with prescription pain killers because they can cause dizziness, drowsiness, constipation, and can be addictive. Do not drive for 6 hours after taking prescription pain killers. Activity Level: No Restrictions Discharge Diet: Regular Prescriptions: New hydrocodone-acetaminophen 5-325 mg tablet 1 - 2 tab PO Q4-6H PRN (Reason: pain) Qty: 10 0RF No Action celecoxib [Celebrex] 200 mg capsule 200 mg PO BID Qty: 180 3RF hydrocodone-acetaminophen 5-325 mg tablet 1 tab PO TID PRN (Reason: pain) Qty: 20 0RF duloxetine 60 mg capsule,delayed release(DR/EC) 60 mg PO QDAY Qty: 90 1RF Follow Up/Referrals: John Singh MD [Primary Care Provider, Family Practice] Stand Alone Forms: [email or web address] Info Instructions
[2025-05-19] MEDS: METOCLOPRAMIDE HCL 5 MG/ML INJ 10 MG IVP (17:30)
[2025-05-19 17:32] LABS: Hematocrit* 40.9 % (33.0-51.0); Hemoglobin* 13.7 gm/dL (12.0-16.0); Immature Granulocytes Pct Auto 0.2 %; Mean Corpuscular HGB Conc 34 gm/dL (32-36); Mean Corpuscular Hemoglobin 30 pg (26-34); Mean Corpuscular Volume 91 fL (80-100); RDW Coefficient of Variation % 13.4 % (11.5-15.5); Red Blood Count* 4.51 m/uL (4.00-5.20); White Blood Count* 17.42 K/uL (4.50-11.00)
[2025-05-19 17:34] LABS: Immature Granulocytes Abs Auto 0.00 K/uL (0.00-0.30); Lymphocytes Absolute Auto 2.60 K/uL (0.90-2.90); Slide Review Reflex No
[2025-05-19 17:48] LABS: Chloride* 102 mmol/L (96-114); Sodium* 141 mmol/L (135-149)
[2025-05-19 17:49] LABS: Potassium* 3.5 mmol/L (3.6-5.1)
[2025-05-19 17:50] LABS: Mono Screen* Negative (Negative)
[2025-05-19 17:51] LABS: Blood Urea Nitrogen* 13 mg/dL (5-24); Creatinine* 0.9 mg/dL (0.5-1.5); Est. Creatinine Clearance* 69.53; Estimated Glomerular Filt Rate 79 ml/min
[2025-05-19 17:52] LABS: Anion Gap 8 mEq/L (7-15); Calcium* 9.2 mg/dL (8.4-10.6); Carbon Dioxide* 31 mmol/L (20-32); Glucose* 122 mg/dL (60-115)
[2025-05-19 17:55] LABS: HCG Qualitative Serum* Negative (Negative)
[2025-05-19 18:09] LABS: PCR FLU A Negative PCR FLU A (Negative); PCR FLU B Negative PCR FLU B (Negative); PCR RSV Negative PCR RSV (Negative); SARS PCR* Negative SARS-CoV-2 (Negative)
--- NOTE | 2025-05-19 18:57 | CRLHL7_ITS ---
For Patients: As a result of the Century Cures Act, medical imaging exams and procedure reports are released immediately into your electronic medical record. You may view this report before your referring provider. If you have questions, please contact your health care provider. INDICATION: Right headache, ear pain , Pharyngitis, leukocytosis. TECHNIQUE: CT head without contrast. COMPARISON: None. FINDINGS: Chronic small encephalomalacia in the right frontal operculum. No acute loss of parikh-white matter differentiation. No acute hemorrhage or abnormal extra-axial fluid collection. The ventricles are of normal caliber. No midline shift. Polypoid mucosal thickening in bilateral maxillary sinus. The visualized orbits are grossly unremarkable. No skull fractures. IMPRESSION: 1. 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 2. No acute intracranial abnormality. Please note that all CT scans at this facility use dose modulation, iterative reconstruction, and/or weight-based dosing when appropriate to reduce radiation dose to as low as reasonably achievable. Dictated by Brian Douglass MD @ 05/19/2025 7:31:00 PM (Electronically Signed)
--- NOTE | 2025-05-19 18:57 | CT_ITS ---
Patient: MARYAM VALLECILLO Facility:?[facility] RIS Patient ID:?[id number] Site Patient ID:?[id number]. Site :?[id number] Study:?CT-Neck Angio Angio 95CC ISOVUE NONACUTE-05/19/2025 7:23:22 PM Ordering Physician:Desirae Valladares Final Report: DATE: 05/19/2025 CLINICAL HISTORY: Patient with headache and ear pain. TECHNIQUE: Standard helical CT image acquisition through the head and neck was performed after intravenous contrast bolus enhancement. 2D and 3D MIP images for post- processing were performed and interpreted on an independent workstation and 3D images were permanently archived. COMPARISON: CT same day. FINDINGS: The origins of the great vessels from the aortic arch are patent. The origin of the right vertebral artery is patent. The origin of the left vertebral artery is patent. The common carotid arteries are patent There is no stenosis at the origin of the right internal carotid artery. There is no stenosis at the origin of the left internal carotid artery. The rest of the cervical segments of the internal carotid arteries are patent up to their intracranial segments. The intracranial segments of the internal carotid arteries are patent. The left vertebral artery is dominant. The cervical segments of the vertebral arteries are patent. The intracranial segments of the vertebral arteries are patent. The middle cerebral arteries are normal without aneurysm or proximal occlusion identified. The anterior cerebral arteries are normal without aneurysm or proximal occlusion identified. The anterior communicating artery is well visualized and appears normal. The basilar artery is normal without aneurysm or occlusion. The posterior cerebral arteries are normal without aneurysm or proximal occlusion. There is normal opacification of major intracranial venous structures. The visualized lung apices are unremarkable The thyroid gland is unremarkable. The soft tissues of the neck are unremarkable. There are degenerative changes in the cervical spine. IMPRESSION: Normal CT angiogram of the head and neck. Please note that all CT scans at this facility use dose modulation, iterative reconstruction, and/or weight-based dosing when appropriate to reduce radiation dose to as low as reasonably achievable. Dictated by Aurelia Muñoz MD @ 05/19/2025 10:56:20 PM (Electronic Signature)
--- NOTE | 2025-05-19 18:57 | CT_ITS ---
Patient: MARYAM VALLECILLO Facility:?[facility] R[facility] Patient ID:?[id number] Site Patient ID:?[id number]. Site :?1980 Study:?CT-Head Angio 95CC ISOVUE NONACUTE-05/19/2025 7:23:05 PM Ordering Physician:Desirae Valladares Final Report: DATE: 05/19/2025 CLINICAL HISTORY: Patient with headache and ear pain. TECHNIQUE: Standard helical CT image acquisition through the head and neck was performed after intravenous contrast bolus enhancement. 2D and 3D MIP images for post- processing were performed and interpreted on an independent workstation and 3D images were permanently archived. COMPARISON: CT same day. FINDINGS: The origins of the great vessels from the aortic arch are patent. The origin of the right vertebral artery is patent. The origin of the left vertebral artery is patent. The common carotid arteries are patent There is no stenosis at the origin of the right internal carotid artery. There is no stenosis at the origin of the left internal carotid artery. The rest of the cervical segments of the internal carotid arteries are patent up to their intracranial segments. The intracranial segments of the internal carotid arteries are patent. The left vertebral artery is dominant. The cervical segments of the vertebral arteries are patent. The intracranial segments of the vertebral arteries are patent. The middle cerebral arteries are normal without aneurysm or proximal occlusion identified. The anterior cerebral arteries are normal without aneurysm or proximal occlusion identified. The anterior communicating artery is well visualized and appears normal. The basilar artery is normal without aneurysm or occlusion. The posterior cerebral arteries are normal without aneurysm or proximal occlusion. There is normal opacification of major intracranial venous structures. The visualized lung apices are unremarkable The thyroid gland is unremarkable. The soft tissues of the neck are unremarkable. There are degenerative changes in the cervical spine. IMPRESSION: Normal CT angiogram of the head and neck. Please note that all CT scans at this facility use dose modulation, iterative reconstruction, and/or weight-based dosing when appropriate to reduce radiation dose to as low as reasonably achievable. Dictated by Aurelia Muñoz MD @ 05/19/2025 10:55:45 PM (Electronic Signature)
[2025-05-19] MEDS: AMPICILLIN/SULBACTAM 3 GM in 0.9 % SODIUM CHLORIDE Mini-bag 100 ML IVPB (20:36)
[2025-05-19] MEDS: OxyCODONE/APAP 5-325 TABLET 1 TAB PO (21:20)
[2025-05-19 21:24] VITALS: BP 137/78; PULSE 75; RESP 18; O2SAT 98
== END 2025-05-19 21:24 | disposition home or self-care (01) ==
PROVIDERS: Emergency Provider Emergency Medicine; PCP Family Medicine
DX: R51.9 Headache, unspecified (principal); J02.9 Acute pharyngitis, unspecified
CPT/HCPCS: 36415; 70450; 70496; 70498; 80048; 84703; 85025; 86308; 87631; 87651; 96365; 96375; 99283; 99284; A9270; J0295; J1100; J1171; J1200; J1885; J2765; J7030; Q9967

== ENCOUNTER 2025-05-24 11:32 | Emergency (ER) | payer BC, SELFPAY ==
--- OUTSIDE RECORDS SUMMARY | 2025-05-24 11:35 | XMS_ITS | Clinical Summary ---
Author Organization [facility] Address [address] [place] [address] Care Team Providers Care Gift Shop Assistant Name Role Phone Unavailable Primary Care Provider Unavailabl e Source Comments Patient records contain information from all sites at [facility]. For routine questions regarding patient records, call [phone] during business hours, M-F 8:00 AM - 5:00 PM Central Time. Record requests for emergency care only can be directed to [phone] at any time.[facility] Allergies No known active allergies [...] Years Used Date Smoking Tobacco: Former Cigarettes [facility] Utilities Answer Date Recorded In the past 12 months has e [employer], gas, oil, or water [employer] threatened to shut off services in your [...] your living situation today? I have a [place] place to live 06/22/2024 Education Answer Date Recorded What is the highest level of school you have completed or the highest degree you have received? 12th grade 08/17/2021 Comments Unknown Sex and Gender Information Value Date Recorded Sex Assigned at Female 06/22/2024 2:54 PM FOOD SERVICE LEAD Legal Sex Female 4:06 AM FOOD SERVICE LEAD Gender Identity Female 06/22/2024 2:54 PM FOOD SERVICE LEAD Sexual Orientation Straight 06/22/2024 2: 54 PM FOOD SERVICE LEAD Last Filed Vital Signs Vital Sign Reading Time Taken Comments Blood Pressure 137/82 06/23/2024 10:56 AM FOOD SERVICE LEAD Pulse 88 06/23/2024 10:56 AM FOOD SERVICE LEAD Temperature 37.2 C (99 F) 10/04/2020 9:09 AM FOOD SERVICE LEAD Respiratory Rate - - Oxygen Saturation - - Inhaled Oxygen Concentration - - Weight 82.1 kg (181 lb) 06/23/2024 10:56 AM FOOD SERVICE LEAD Height 165 cm (5' 4.96) 06/23/2024 10:56 AM FOOD SERVICE LEAD Body Mass Index 30.16 06/23/2024 10:56 AM FOOD SERVICE LEAD Plan of Treatment Health Maintenance Due Date Last Done Comments CT Colonography 1978 Cologuard 1978 Colonoscopy 1978 Colorectal Cancer Screening 1978 FIT 1978 Fasting Glucose for Diabetes Screening 1978 HIV Screening 1978 Hepatitis C Screening 1978 Lipid (Cholesterol) Screening 1978 Mammogram 1978 Hepatitis B Vaccines (2 of 3 - 19+ 3-dose series) 01/02/2011 12/05/2010, 03/04/1997 Cervical/Vaginal Cancer Screening 12/06/2023 12/05/2020 Depression Screening (Annual PHQ-2) 07/29/2024 COVID-19 Vaccine ( season) 2025 Influenza Vaccine (#1) 2025 8, 04/18/2012, 04/25/2011, Additional history exists DTaP,Tdap,and Td Vaccines (8 - Td or Tdap) 12/06/2027 12/05/2017, 09/29/2009, 09/29/2009, Additional history exists IPV Vaccines Aged Out No longer eligi ble based on patient's age to complete this topic Pneumococcal vaccine (0-49 years) Aged Out No longer eligible based on patient's age to complete this topic Insurance [facility]
--- OUTSIDE RECORDS SUMMARY | 2025-05-24 11:35 | XMS_ITS | Encounter Summary ---
Author Organization [facility] Address [address] [place] [address] Care Team Providers Care Appliance Servicer Name Role Phone Unavailable Primary Care Provider Unavailabl e Encounter Details Date Type Department Care Team (Late st Contact Info) Description 04/28/2013 Historical Ophthalmology [facility] Chelsie Velasquez M.D. [address] [place] [address] Social History Tobacco Use Types Packs/Day Years Used Date Smoking Tobacco: Never Assessed Comments Unknown Sex and Gender Information Value Date Recorded Sex Assigned at Female 06/22/2024 2:54 PM GEAR ROLLER Legal Sex Female 4:06 AM GEAR ROLLER Gender Identity Female 06/22/2024 2:54 PM GEAR ROLLER Sexual Orientation Straight 06/22/2024 2: 54 PM GEAR ROLLER documented as of this encounter Progress Notes [...] appt with Dr. Ross If returning to [place] again in the future, i would be happy to see Ms. Wilder again Will communicate with Dr. Campbell and Dr. 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
--- OUTSIDE RECORDS SUMMARY | 2025-05-24 11:35 | XMS_ITS | Clinical Summary ---
Author Organization [facility] Address [address] [place] [address] Care Team Providers Care Gear Technician Name Role Phone [facility] ([place], [place]) Primary Care Provider Allergies No known active [...] on file Legal Sex Female 3:19 AM HATCH SUPERVISOR Gender Identity Not on file Sexual Orientation [...] of Treatment Not on file Care Teams Gear Technician Relationship Specialty Start Date End Date [facility] ([place], [place]) [address] [place] [address] PCP - General 12/25/17
--- OUTSIDE RECORDS SUMMARY | 2025-05-24 11:35 | XMS_ITS | Clinical Summary ---
Author Organization [facility] Address [address] [place] [address] Care Team Providers Care Photograph Finisher Name Role Phone John Singh MD Primary [...] History Relation Name Comments Heart Disease Father [place]-45 triple b ypass Cancer Maternal Grandfather Cancer-prostate [...] on file Legal Sex Female 5:23 AM HAND METHOD LASTING MACHINE OPERATOR Gender Identity Not on file Sexual Orientation [...] 1, 12/05/2020, 07/23/2016, Additional history exists Influenza Vaccine (#1) 2025 2, 04/18/2012, 04/25/2011, Additional history exists RSV vaccine for adults or (1 - 1-dose 75+ series) 2053 Hepatitis C screening for age 18-79 Completed 09/12/2011, 09/29/2009 HIV for age 15-65 Completed 06/06/2017, , 09/29/2009 Pneumococcal series for age 6-49 Aged Out No longer eligible based on patient's age to complete this topic Procedures Procedure Name Priority Date/Time Associated Diagnosis Comments LEAD NETWORK ARCHITECT THIN PREP PAP SCREEN IMAGED Routine 12/05/2020 12:00 PM CDT ANTI HIV 1/2 Routine 06/06/2017 6:01 PM HAND METHOD LASTING MACHINE OPERATOR Encounter for supervision of other normal , first trimester (HC) ANTI HCV Routine 09/12/2011 11:28 AM HAND METHOD LASTING MACHINE OPERATOR Supervision of normal first (HC) from Last 3 Months or Most Recently Relevant to Health Maintenance Results * LEAD NETWORK ARCHITECT THIN PREP PAP SCREEN IMAGED (12/05/2020 12:00 PM CDT) Case Report Gynecologic Cytology Report Case: [id number] Authorizing Provider: Sandra Harrison Collected: 12/05/2020 1200 MMD Ordering Location: [facility] Received: 12/07/2020 1007 First Screen: Kenrick Ascencio Specimen: LEAD NETWORK ARCHITECT ThinPrep Vial Screening, Cervical/Vaginal 12/15/2020 1:17 PM CDT [facility] [employer] [facility] INTERPRETATION/ RESULT NEGATIVE FOR INTRAEPITHELIAL LESION OR MALIGNANCY (NIL) (none) 12/15/2020 1:17 PM CDT [facility] [employer] [facility] at 1317 CDT SPECIMEN ADEQUACY Satisfactory for evaluation No endocervical component seen 12/15/2020 1:17 PM CDT [facility] [employer] [facility] HPV REQUEST HPV and PAP 12/15/2020 1:17 PM CDT [facility] [employer] [facility] Date of LMP 12/15/2020 1:17 PM CDT [facility] [employer] [facility] Comment:Ablation Last Pap Date 07/23/2016 12/15/2020 1:17 PM CDT [facility] Last Pap Result NIL 1:17 PM CDT [facility] Comment:Neg hpv Additional Information 12/15/2020 1:17 PM CDT [facility] Comment: Interpreted at [facility] [employer] [facility] - [address], [place] [address] Automated Review Successful 12/15/2020 1:17 PM CDT [facility] [employer] [facility] Comment:Specimen processed s uccessfully by automated it associate device, ThinPrep Imaging System, [employer] ANCILLARY TESTING LEAD NETWORK ARCHITECT HPV Ordered, Please see separate report 12/15/2020 1:17 PM CDT [facility] [employer] [facility] Note The pap test is [...] and malignant lesions. 12/15/2020 1:17 PM CDT [facility] Other (Cervical/Vagina l) 12/05/2020 12:00 PM CDT 12/07/2020 10:07 AM CDT us Sandra Harrison MD PATHOLOGY/CYTOLOGY Final Result [facility] [address] [place] [address], [place] * ANTI HIV 1/2 (06/06/2017 6:01 PM HAND METHOD LASTING MACHINE OPERATOR) HIV-1/HIV-2 ANTIBODY Non-Reacti ve Non-Reacti ve 06/07/2017 1:44 PM HAND METHOD LASTING MACHINE OPERATOR [facility] Blood BLOOD SPECIMEN / Unknown Venipuncture / Unknown 06/06/2017 6:01 PM HAND METHOD LASTING MACHINE OPERATOR 06/06/2017 6:01 PM HAND METHOD LASTING MACHINE OPERATOR Narrative [facility] - 06/07/2017 1:44 PM HAND METHOD LASTING MACHINE OPERATOR HIV-1 p24 and HIV-1/HIV-2 Ab not detected us Erin Merida NP SEND OUTS F inal Result Performing Organization Address City/[facility]/ZIP Co de Phone Number [facility] [address] [place] [address], [place] * ANTI HCV (09/12/2011 11:28 AM HAND METHOD LASTING MACHINE OPERATOR) ANTI HCV Non-reacti ve [facility] Blood specimen (specimen) BLOOD SPECIMEN / Unknown 09/12/2011 11:28 AM HAND METHOD LASTING MACHINE OPERATOR 09/12/2011 11:20 AM HAND METHOD LASTING MACHINE OPERATOR us Marion BATISTA SEND OUTS Final R esult [facility] [place]IP [id number] [place] [id number] from Last 3 Months or Most Recently Relevant to Health Maintenance Insurance [facility] Care Teams Photograph Finisher Relationship Specialty Start Date End Date John Singh MD [address] [place] [address] PCP - General Family Practice 01/09/21
[2025-05-24 11:43] VITALS: BP 120/76; PULSE 95; RESP 18; TEMP 37.3; O2SAT 97; BMI 24.1
--- NOTE | 2025-05-24 13:30 | CRLHL7_ITS ---
For Patients: As a result of the Century Cures Act, medical imaging exams and procedure reports are released immediately into your electronic medical record. You may view this report before your referring provider. If you have questions, please contact your health care provider. INDICATION: Worsening tonsillitis, evaluate for abscess. TECHNIQUE: CT soft tissue of the neck was acquired with 80 cc of Isovue 370 IV contrast. COMPARISON: None. FINDINGS: Skull base: Unremarkable. Pharynx/Larynx/Trachea: Epiglottis is normal. Airway is patent. Adjacent soft tissues are normal. Salivary glands: Unremarkable. Thyroid gland: Unremarkable. No significant nodules. Lymph nodes: No lymphadenopathy. Vessels: Unremarkable for age. Bones: Unremarkable for age. Misc: No inflammation, mass or fluid collection. Lung apices: Unremarkable. IMPRESSION: Unremarkable CT appearance of the tonsils. No evidence for peritonsillar abscess. No acute findings within the neck. Please note that all CT scans at this facility use dose modulation, iterative reconstruction, and/or weight-based dosing when appropriate to reduce radiation dose to as low as reasonably achievable. Dictated by Blaine Cordero MD @ 05/24/2025 2:34:22 PM (Electronically Signed)
--- NOTE | 2025-05-24 13:44 | ED_ITS ---
HPI - General Adult General Date Seen: 05/24/25 Chief complaint: Sore Throat Stated complaint: Tonsillitis, fever Time Seen by Provider: 05/24/25 13:15 History of Present Illness HPI narrative: Patient is a 45-year-old woman with past medical history noted below for anxiety, depression, fibromyalgia, spondylo arthropathy, occipital neuralgia and migraine, seen here on May 19 with headache and sore throat and diagnosed with tonsillitis. CT scanning of the head, cervical vasculature and neck was negative. [place] [address], strep and Monospot were negative. She was treated with Augmentin, given dose of Decadron in the ER. She followed up with ENT today and noted that she was feeling if anything somewhat worse. She does not have asymmetric throat pain. Continues to have difficulty managing her headache, continues to have significant sore throat. Notes low-grade fevers in the 99s. Has been able to drink liquids but probably not drinking as much as she should. Sent here from the ENT clinic for further evaluation and treatment of her symptoms. Related Data Previous Rx's ?Medication ?Instructions ?Recorded celecoxib 200 mg capsule (Celebrex) 200 mg PO BID #180 caps 05/05/24 hydrocodone 5 mg-acetaminophen 325 1 tab PO TID PRN pa in #20 tabs 05/05/24 mg tablet duloxetine 60 mg capsule,delayed 60 mg PO QDAY #90 cap s 02/17/25 release hydrocodone 5 mg-acetaminophen 325 1 - 2 tab PO Q4-6H PRN pain #10 05/19/25 mg tablet tabs tizanidine 4 mg tablet 4 mg PO BID PRN muscle spast icity 05/21/25 #60 tabs Allergies Allergy/AdvReac Type Severity Reaction Status Date / Time No Known Drug Allergies Allergy Verified 05/24/25 11:43 Review of Systems Status of ROS: Reports: 10 or more systems reviewed and unremarkable except as noted in History and below [facility] Medical History Pharyngitis ?J02.9 - Acute pharyngitis, unspecified (ICD-10) Herpes simplex ?B00.9 - Herpesviral infection, unspecified (ICD-10) Generalized anxiety disorder ?F41.1 - Generalized anxiety disorder (ICD-10) Major depression, recurrent, chronic ?F33.9 - Major depressive disorder, recurrent, unspecified (ICD-10) Seizure disorder ?G40.909 - Epilepsy, unspecified, not intractable, without status epilepticus (ICD-10) Rectal hemorrhage (12/23/20) ?K62.5 - Hemorrhage of anus and rectum (ICD-10) Premature delivery ?O60.10X0 - labor with delivery, unspecified trimester, not applicable or unspecified (ICD-10) Panic attack ?F41.0 - Panic disorder [episodic paroxysmal anxiety] (ICD-10) Occipital neuralgia (08/13/11) ?M54.81 - Occipital neuralgia (ICD-10) Obstructive sleep apnea syndrome ?G47.33 - Obstructive sleep apnea (adult) (pediatric) (ICD-10) Iritis (04/15/13) ?H20.9 - Unspecified iridocyclitis (ICD-10) Inflammation of sacroiliac joint ?M46.1 - Sacroiliitis, not elsewhere classified (ICD-10) Infection due to severe acute respiratory syndrome coronavirus 2 (SARS-CoV-2) (07/2020) ?U07.1 - COVID-19 (ICD-10) 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) ?M47.899 - Other spondylosis, site unspecified (ICD-10) Herpes zoster ?B02.9 - Zoster without complications (ICD-10) Fibromyalgia ?M79.7 - Fibromyalgia (ICD-10) Dysmenorrhea ?N94.6 - Dysmenorrhea, unspecified (ICD-10) 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 (skin-picking) disorder (ICD-10) Complex renal cyst ?N28.1 - Cyst of kidney, acquired (ICD-10) Surgical History Status post endometrial ablation (02/16/20) ?Z98.890 - Other specified postprocedural states (ICD-10) History of tubal ligation (12/25/17) ?Z98.51 - Tubal ligation status (ICD-10) History of loop electrosurgical excision procedure (LEEP) of cervix (2004) ?Z98.890 - Other specified postprocedural states (ICD-10) History of laparoscopic cholecystectomy (11/04/17) ?Z90.49 - Acquired absence of other specified parts of digestive tract (ICD- 10) History of section (12/25/17) ?Z98.891 - History of uterine scar from previous surgery (ICD-10) History of section (2011) ?Z98.891 - History of uterine scar from previous surgery (ICD-10) Family History Maternal Grandmother Breast cancer, Onset Age: 70 Ovarian cancer Paternal Grandfather Colon cancer, Onset Age: 65 Paternal Grandmother Diabetes Father Myocardial infarction, Onset Age: 42 Heart disease High blood pressure High cholesterol Other Seizure disorder Social History Narrative: does not drink alcohol 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 , 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, 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 What is your current living situation?: I presently have a place to live In the past 12 months, utilities in danger of being shut off: no In past 12 months, lack of transportation kept you from medical appts, meetings, work, or getting things needed for daily living: no In the past 12 mos, the food you bought just didn't last and you didn't have money to buy more?: never true Smoking Status: Former smoker How often do you have a drink containing alcohol: never AUDIT-C Alcohol total score: 0 Non-prescribed substance use: denies use How often does anyone, including family, friends and others, physically hurt you : never How often does anyone, including family, friends and others, insult or talk down to you: never How often does anyone, including family, friends and others, threaten you with harm: never How often does anyone, including family, friends and others, scream or curse at you: never Are you currently sexually active: Yes Are you using contraception or practicing any form of control: Yes (tubal ligation) service: No Exam Narrative: Exam Narrative: Vital signs reviewed In general, alert, nontoxic manage woman. Voice is soft but otherwise normal. Breathing without difficulty. Head: Normocephalic, atraumatic. Eyes: Sclera clear. Pupils equal and reactive. ENT: Mucous membranes moist. Throat shows large tonsils, erythema. No exudate at this time. No asymmetric swelling. No trismus. Neck: Supple without adenopathy. No tracheal tenderness. Heart: Regular rate and rhythm without murmur. Lungs: Clear. No increased work of breathing, crackles or wheezes. Abdomen: Soft, nontender to palpation. Extremities: Well perfused, pulses intact. No significant edema. Neurologic: Alert, conversant. Speech fluent, face symmetric. Moves all extremities equally. Skin: Warm, dry well perfused. Affect: Normal. Const: Vital Signs, click to edit/add: Vital Signs - 24 hr 05/24/25 11:43 05/24/25 16:50 Temperature 99.2 F Pulse Rate [Pulse Oximeter] 95 75 Respiratory Rate 18 16 Blood Pressure [Ri ght Upper Arm] 120/76 119/79 Pulse Oximetry 97 93 Oxygen Delivery Me thod Room Air Room Air Course Course ED Course: Patient is overall nontoxic in appearance, ongoing sore throat and headache related to prior diagnosis of tonsillitis. I do not see obvious evidence on exam of peritonsillar abscess, but will do a soft tissue CT of the neck to confirm. In the meantime, to recheck basic labs, IV fluids, Toradol, Benadryl, Reglan for headache. I also gave her 125 of Solu-Medrol IV. Headache is been ongoing for quite some time now, she does not have any meningeal signs, neurologic changes, I do not feel this represents meningitis. Patient had fluids and medication for headache, she feels improved. I reviewed her CT scan, I do not see any evidence of abscess and radiology report is likewise negative. Her white count is improved from a couple days ago, down to 13. Other blood counts and electrolytes kidney function are all normal. Discussed that I think it is reasonable for her to go home, continue her Augmentin, throat is not improving as fast as she would like but it does appear that it is getting better. I prescribed some prednisone for few days, ibuprofen and/or Tylenol, and planned ENT follow-up. Return for worsening. Vital Signs Vital signs: Initial Vital Signs Temperature 99.2 F 05/24/25 11:43 Temperature Source Temporal Artery Scan 05/24/25 11:43 Pulse Rate 95 05/24/25 11:43 Respiratory Rate 18 05/24/25 11:43 Blood Pressure 120/76 05/24/25 11:43 Blood Pressure Mean 90 05/24/25 11:43 Pulse Oximetry 97 05/24/25 11:43 Oxygen Delivery Method Room Air 05/24/25 11:43 Vital Signs Temperature 99.2 F 05/24/25 11:43 Pulse Rate 95 05/24/25 11:43 Respiratory Rate 18 05/24/25 11:43 Blood Pressure 120/76 05/24/25 11:43 Pulse Oximetry 97 05/24/25 11:43 Oxygen Delivery Method Room Air 05/24/25 11:43 Temperature 99.2 F 05/24/25 11:43 Pulse Rate 75 05/24/25 16:50 Respiratory Rate 16 05/24/25 16:50 Blood Pressure 119/79 05/24/25 16:50 Pulse Oximetry 93 05/24/25 16:50 Oxygen Delivery Method Room Air 05/24/25 16:50 Medications Administered Medications: Discontinued Medications Generic Name Dose Route Start Last Admin Trade Name Freq PRN Reason Stop Dose Admin Diphenhydramine HCl 25 mg 05/24/25 13:29 05/24/25 13:48 Diphenhydramine 50 Mg/Ml Inj IVP 05/24/25 13:30 25 mg ONCE ONE Administration Sodium Chloride 1,000 mls @ 1,000 mls/hr 05/24/25 13:30 05/24/25 15:03 0.9 % Sodium Chloride 1000 Ml IV 05/24/25 14:29 Infused .Q1H KYA Infusion Metoclopramide HCl 10 mg/ 102 mls @ 306 mls/hr 05/24/25 13:29 05/24/25 14:34 Sodium Chloride IVPB 05/24/25 13:30 Infused ONCE ONE Infusion Ketorolac Tromethamine 15 mg 05/24/25 13:29 05/24/25 13:48 Ketorolac 15 Mg/Ml Inj IVP 05/24/25 13:30 15 mg ONCE ONE Administration Methylprednisolone Sodium Succinate 125 mg 05/24/25 13:31 05/24/25 13:48 Methylprednisolone Sod Succ 62.5 Mg/Ml (125) IVP 05/24/25 13:32 125 mg ONCE ONE Administration Medical Decision Making Lab Data Lab results reviewed: Yes I reviewed the patient's lab results Labs: Lab Results 05/24/25 Range/Units 13:55 WBC 13.23 H (4.50-11.00) K/uL RBC 4.66 (4.00-5.20) m/uL Hgb 13.7 (12.0-16.0) gm/dL Hct 41.7 (33.0-51.0) % MCV 90 (80-100) fL MCH 29 (26-34) pg MCHC 33 (32-36) gm/dL RDW Coeff of Vince 13.0 (11.5-15.5) % Plt Count 365 (140-440) K/uL Neut % (Auto) 59.6 (42.0-72.0) % Lymph % (Auto) 32.6 (20-44) % Alexander % (Auto) 5.6 (0.0-11.0) % Eos % (Auto) 1.7 (0.0-7.0) % Baso % (Auto) 0.2 (0.0-3.0) % Neut # (Auto) 7.90 H (1.7-7.0) K/uL Lymph # (Auto) 4.30 H (0.90-2.90) K/uL Alexander # (Auto) 0.70 (0.00-0.90) K/UL Eos # (Auto) 0.20 (0.00-0.50) K/uL Baso # (Auto) 0.00 (0.00-0.30) K/uL Abs Immat Gran (auto) 0.00 (0.00-0.30) K/uL Imm/Tot Granulo (auto) 0.3 % Sodium 139 (135-149) mmol/L Potassium 3.6 (3.6-5.1) mmol/L Chloride 102 (96-114) mmol/L Carbon Dioxide 27 (20-32) mmol/L Anion Gap 10 (7-15) mEq/L BUN 12 (5-24) mg/dL Creatinine 0.7 (0.5-1.5) mg/dL Estimated Creat Clear 103.83 Estimated GFR 107 ml/min Glucose 105 (60-115) mg/dL Calcium 9.5 (8.4-10.6) mg/dL Imaging Data CT soft tissue neck: Attestation: I have reviewed the pertinent imaging results. Radiologist's impression: Patient: Dorothy Wilder MR#: [id number] : 1980 Acct:[id number] Loc: ED Service Date: 05/24/[address]: Ordering Physician: Corina Machuca M.D. Date of Service: 05/24/25 Procedure(s): CT soft tissue neck w con Accession Number(s): [id number] cc: Corina Machuca M.D.; John Singh M.D.~ For Patients: As a result of the Cures Act, medical imaging exams and procedure reports are released immediately into your electronic medical record. You may view this report before your referring provider. If you have questions, please contact your health care provider. INDICATION: Worsening tonsillitis, evaluate for abscess. TECHNIQUE: CT soft tissue of the neck was acquired with 80 cc of Isovue 370 IV contrast. COMPARISON: None. FINDINGS: Skull base: Unremarkable. Pharynx/Larynx/Trachea: Epiglottis is normal. Airway is patent. Adjacent soft tissues are normal. Salivary glands: Unremarkable. Thyroid gland: Unremarkable. No significant nodules. Lymph nodes: No lymphadenopathy. Vessels: Unremarkable for age. Bones: Unremarkable for age. Misc: No inflammation, mass or fluid collection. Lung apices: Unremarkable. IMPRESSION: Unremarkable CT appearance of the tonsils. No evidence for peritonsillar abscess. No acute findings within the neck. Please note that all CT scans at this facility use dose modulation, iterative reconstruction, and/or weight-based dosing when appropriate to reduce radiation dose to as low as reasonably achievable. Dictated by Blaine Cordero MD @ 05/24/2025 2:34:22 PM Discharge Plan Discharge Clinical Impression: Acute tonsillitis, Migraine Patient Disposition: Home, Self-Care Condition: Improved Instructions: Tonsillitis (ED) Additional Instructions: Your CT scan today looks good. There is no evidence of significant tonsillar swelling or abscess. On exam I think your tonsils look improved. It can take 7-10 days for the throat pain to really improve. I would continue to take the Augmentin. I have prescribed a course of prednisone, which is a steroid, to help with inflammation and hopefully improve your throat as well. Follow-up with ENT as planned. Return for worsening. Prescriptions: No Action celecoxib [Celebrex] 200 mg capsule 200 mg PO BID Qty: 180 3RF hydrocodone-acetaminophen 5-325 mg tablet 1 tab PO TID PRN (Reason: pain) Qty: 20 0RF hydrocodone-acetaminophen 5-325 mg tablet 1 - 2 tab PO Q4-6H PRN (Reason: pain) Qty: 10 0RF duloxetine 60 mg capsule,delayed release(DR/EC) 60 mg PO QDAY Qty: 90 1RF tizanidine 4 mg tablet 4 mg PO BID PRN (Reason: muscle spasticity) Qty: 60 1RF Follow Up/Referrals: John Singh MD [Primary Care Provider, Family Practice] Stand Alone Forms: [employer] Info Instructions
[2025-05-24] MEDS: METHYLPREDNISOLONE SOD SUCC 62.5 MG/ML (125) 125 MG IVP (13:48)
[2025-05-24] MEDS: METOCLOPRAMIDE HCL 10 MG in 0.9 % SODIUM CHLORIDE 100 ml 100 ML 306 MG IVPB (13:49)
--- OUTSIDE RECORDS SUMMARY | 2025-05-24 13:55 | XMS_ITS | Data Portability ---
Author Organization [facility], [facility] Address [address] [place] [address] Assessment No assessment recorded. Plan of Treatment Reminders Order Date Submit Date Provider Last Modified By Organization Details Last Modified Time Details Appointments None recorded. Lab None recorded. Referral None recorded. Procedures cyst aspiration (PROC) - by Radiology. Send fluid for Cytology to detect any cancer cells. 2020 021 [facility], [address], [place], [address], 16:07:16 Surgeries None recorded. Imaging None recorded. Medication Orders None recorded. Patient TargetsNo targets recorded. Patient InstructionsNo instructions recorded. Reason for Referral None Reported. Results Created Date Observation Date Name Description Value Unit Range Abnormal Flag Note LastModifiedBy Organization Detail LastModifiedTime 01/25/20 21 01/17/2021 US, renal No observ ation record ed. [email or web address] Not Available 12/28 17:43:27 01/26/[address], [...] Updated DateTime 01/25/2021 165.1 cm 26.6 kg/m2 00432.78 g 16 /min Eloise Velasco [facility] 01/25/2021 17:33:28 Social History [...] Codes Diagnosis Note [id number] Chuckie Lindsay MD [facility] [address] [address],[address] [place] [address] 01/25/2021 16:26:25 01/26/2021 08:32:50 Complex renal cyst [id number] N28.1 This is a complicate d. situation [...] 02/01/2021 1 [place] (MEDICAID REPLAC[place] - HMO) [facility] [id number] Dorothy Wilder Notes Date Note Type [...] her , which was quite helpful. Azucena hutchinosn [facility] 01/25/2021 18:49:45 OBGyn Episode No OBEpisode recorded.
[2025-05-24 14:14] LABS: Hematocrit* 41.7 % (33.0-51.0); Hemoglobin* 13.7 gm/dL (12.0-16.0); Immature Granulocytes Pct Auto 0.3 %; Mean Corpuscular HGB Conc 33 gm/dL (32-36); Mean Corpuscular Hemoglobin 29 pg (26-34); Mean Corpuscular Volume 90 fL (80-100); RDW Coefficient of Variation % 13.0 % (11.5-15.5); Red Blood Count* 4.66 m/uL (4.00-5.20); White Blood Count* 13.23 K/uL (4.50-11.00)
[2025-05-24 14:25] LABS: Chloride* 102 mmol/L (96-114)
[2025-05-24 14:26] LABS: Potassium* 3.6 mmol/L (3.6-5.1); Sodium* 139 mmol/L (135-149)
[2025-05-24 14:29] LABS: Anion Gap 10 mEq/L (7-15); Blood Urea Nitrogen* 12 mg/dL (5-24); Calcium* 9.5 mg/dL (8.4-10.6); Carbon Dioxide* 27 mmol/L (20-32); Creatinine* 0.7 mg/dL (0.5-1.5); Est. Creatinine Clearance* 103.83; Estimated Glomerular Filt Rate 107 ml/min; Glucose* 105 mg/dL (60-115)
[2025-05-24 14:40] LABS: Immature Granulocytes Abs Auto 0.00 K/uL (0.00-0.30); Lymphocytes Absolute Auto 4.30 K/uL (0.90-2.90); Slide Review Reflex No
[2025-05-24 16:50] VITALS: BP 119/79; PULSE 75; RESP 16; O2SAT 93
== END 2025-05-24 18:06 | disposition home or self-care (01) ==
PROVIDERS: Emergency Provider Emergency Medicine; PCP Family Medicine
DX: J03.90 Acute tonsillitis, unspecified (principal); G43.909 Migraine, unspecified, not intractable, without status migrainosus
CPT/HCPCS: 36415; 70491; 80048; 85025; 96365; 96375; 99284; J1200; J1885; J2765; J2919; J7030; Q9967

== ENCOUNTER 2025-06-01 15:30 | Outpatient (CLI) | payer BC, SELFPAY | END 2025-06-01 15:31 | disposition home or self-care (01) | LOC: NFLDREF 06-04 14:46 | PROVIDERS: PCP Family Medicine; Referring Provider Family Medicine; Visit Provider Family Medicine | DX: Z13.1 Encounter for screening for diabetes mellitus (principal) | CPT/HCPCS: 82043; 82570 ==

== ENCOUNTER 2025-06-07 23:20 | Emergency (ER) | payer OTHER, BC, SELFPAY ==
--- OUTSIDE RECORDS SUMMARY | 2009-07-15 18:00 | XMS_ITS | Continuity of Care Document ---
Author Organization [facility] Address [address] [address] [place] [address] Phone Care Team Providers Care Wastewater Manager Name Role Phone Bull Rodríguez MD Unavailable [...] [facility], [address] [address], [place], [place], [id number], [place] tel:[phone] [facility] No Information Marcos Gottlieb. [address] [facility], [facility] [address], [place], [place], [id number], [place]. tel:[phone] Referring Provider: Maco Devries MD, [address] [place] [address], [id number]. tel:[phone] Family History Family Member Type Diagnosis Age At Onset No Information Payers Payer name Insurance type Covered alliance party ID Authoriza tion(s) [employer] CI [id number] Social History Type Description Quantity Date Captured [...]
--- OUTSIDE RECORDS SUMMARY | 2009-07-15 18:00 | XMS_ITS | Continuity of Care Document ---
Author Organization [facility] Address [address] [address] [place] [address] Phone Care Team Providers Care Proof Operator Name Role Phone Bull Rodríguez MD Unavailable [...] [facility], [address] [address], [place], [place], [id number], [place] tel:[phone] [facility] No Information Marcos Gottlieb. [address] [facility], [facility] [address], [place], [place], [id number], [place]. tel:[phone] Referring Provider: Maco Devries MD, [address] [place] [address], [address]. tel:[phone] Family History Family Member Type Diagnosis Age At Onset No Information Payers Payer name Insurance type Covered green party ID Authoriza tion(s) [employer] CI [id number] Social History Type Description Quantity Date Captured [...]
--- OUTSIDE RECORDS SUMMARY | 2025-06-07 23:22 | XMS_ITS | Clinical Summary ---
Author Organization [facility] Address [address] [place] [address] Care Team Providers Care Fire Crew Specialist Name Role Phone Unavailable Primary Care Provider Unavailabl e Source Comments Patient records contain information from all sites at [facility]. For routine questions regarding patient records, call [phone] during business hours, M-F 8:00 AM - 5:00 PM Central Time. Record requests for emergency care only can be directed to [phone] at any time.[facility] Allergies No known active allergies Medications prednisoLONE [...] Years Used Date Smoking Tobacco: Former Cigarettes [facility] Utilities Answer Date Recorded In the past 12 months has e [employer], gas, oil, or water [employer] threatened to shut off services in your [...] your living situation today? [facility] 06/22/2024 Education Answer Date Recorded What is the highest level of school you have completed or the highest degree you have received? 12th grade 08/17/2021 Comments Unknown Sex and Gender Information Value Date Recorded Sex Assigned at Female 06/22/2024 2:54 PM ACADEMIC ADVISEMENT DIRECTOR Legal Sex Female 4:06 AM ACADEMIC ADVISEMENT DIRECTOR Gender Identity Female 06/22/2024 2:54 PM ACADEMIC ADVISEMENT DIRECTOR Sexual Orientation Straight 06/22/2024 2: 54 PM ACADEMIC ADVISEMENT DIRECTOR Last Filed Vital Signs Vital Sign Reading Time Taken Comments Blood Pressure 137/82 06/23/2024 10:56 AM ACADEMIC ADVISEMENT DIRECTOR Pulse 88 06/23/2024 10:56 AM ACADEMIC ADVISEMENT DIRECTOR Temperature 37.2 C (99 F) 10/04/2020 9:09 AM ACADEMIC ADVISEMENT DIRECTOR Respiratory Rate - - Oxygen Saturation - - Inhaled Oxygen Concentration - - Weight 82.1 kg (181 lb) 06/23/2024 10:56 AM ACADEMIC ADVISEMENT DIRECTOR Height 165 cm (5' 4.96) 06/23/2024 10:56 AM ACADEMIC ADVISEMENT DIRECTOR Body Mass Index 30.16 06/23/2024 10:56 AM ACADEMIC ADVISEMENT DIRECTOR Plan of Treatment Health Maintenance Due Date [...] patient's age to complete this topic Insurance [facility]
--- OUTSIDE RECORDS SUMMARY | 2025-06-07 23:22 | XMS_ITS | Data Portability ---
Author Organization [place] [facility], [facility] Address [address] [place] [address] Assessment No assessment recorded. Plan of Treatment Reminders Order Date Submit Date Provider Last Modified By Organization Details Last Modified Time Details Appointments None recorded. Lab None recorded. Referral None recorded. Procedures cyst aspiration (PROC) - by Radiology. Send fluid for Cytology to detect any cancer cells. 2020 021 [facility] Radiology, [address], [place], [address], 16:07:16 Surgeries None recorded. Imaging None recorded. Medication Orders None recorded. Patient TargetsNo targets recorded. Patient InstructionsNo instructions recorded. Reason for Referral None Reported. Results Created Date Observation Date Name Description Value Unit Range Abnormal Flag Note LastModifiedBy Organization Detail LastModifiedTime 01/25/20 21 01/17/2021 US, renal No observ ation record ed. [email or web address] Not Available 12/28 17:43:27 01/26/[address], [...] Updated DateTime 01/25/2021 165.1 cm 26.6 kg/m2 07674.78 g 16 /min Eloise Velasco [facility] 01/25/2021 17:33:28 Social History None recorded. [...] Codes Diagnosis Note [id number] Chuckie Lindsay MD [facility] [address] [address],[address] [place] [address] 01/25/2021 16:26:25 01/26/2021 08:32:50 Complex renal cyst [id number] N28.1 This is a complicate d. situation [...] 02/01/2021 1 [place] ([place] - [place]) [facility] [id number] Dorothy Wilder Notes Date Note Type [...] , which was quite helpful. Azucena hutchinson [facility] 01/25/2021 18:49:45 OBGyn Episode No OBEpisode recorded.
--- OUTSIDE RECORDS SUMMARY | 2025-06-07 23:22 | XMS_ITS | Clinical Summary ---
Author Organization [facility] Address [address] [place] [address] Care Team Providers Care Metal Tile Lather Name Role Phone John Singh MD Primary [...] on file Legal Sex Female 5:23 AM LIAISON ENGINEER Gender Identity Not on file Sexual Orientation [...] Procedure Name Priority Date/Time Associated Diagnosis Comments DIMENSION QUARRY SUPERVISOR THIN PREP PAP SCREEN IMAGED Routine 12/05/2020 12:00 PM CDT ANTI HIV 1/2 Routine 06/06/2017 6:01 PM LIAISON ENGINEER Encounter for supervision of other normal , first trimester (HC) ANTI HCV Routine 09/12/2011 11:28 AM LIAISON ENGINEER Supervision of normal first (HC) from Last 3 Months or Most Recently Relevant to Health Maintenance Results * DIMENSION QUARRY SUPERVISOR THIN PREP PAP SCREEN IMAGED (12/05/2020 12:00 PM CDT) Case Report Gynecologic Cytology Report Case: [id number] Authorizing Provider: Sandra Harrison Collected: 12/05/2020 1200 MMD Ordering Location: [facility] Received: 12/07/2020 1007 First Screen: Kenrick Ascencio Specimen: DIMENSION QUARRY SUPERVISOR ThinPrep Vial Screening, Cervical/Vaginal 12/15/2020 1:17 PM CDT [facility] EN[facility] INTERPRETATION/ RESULT NEGATIVE FOR INTRAEPITHELIAL LESION OR MALIGNANCY (NIL) (none) 12/15/2020 1:17 PM CDT [facility] Miira [facility]ORY at 1317 CDT SPECIMEN ADEQUACY Satisfactory for evaluation No endocervical component seen 12/15/2020 1:17 PM CDT [facility]ira [facility] HPV REQUEST HPV and PAP 12/15/2020 1:17 PM CDT [facility] Date of LMP 12/15/2020 1:17 PM CDT [facility] Comment:Ablation Last Pap Date 07/23/2016 12/15/2020 1:17 PM CDT [facility] Last Pap Result NIL 1:17 PM CDT [facility] Comment:Neg hpv Additional Information 12/15/2020 1:17 PM CDT [facility] Comment: Interpreted at [facility] - [address] [address] Automated Review Successful 12/15/2020 1:17 PM CDT [facility] Miira [facility] Comment:Specimen processed s uccessfully by automated senior software project manager device, ThinPrep Imaging System[employer] ANCILLARY TESTING DIMENSION QUARRY SUPERVISOR HPV Ordered, Please see separate report 12/15/2020 1:17 PM CDT [facility] Miira [facility] Note The pap test is [...] and malignant lesions. 12/15/2020 1:17 PM CDT [facility]- EN[facility]AL LAB[facility] Other (Cervical/Vagina l) 12/05/2020 12:00 PM CDT 12/07/2020 10:07 AM CDT us Sandra Harrison MD PATHOLOGY/CYTOLOGY Final Result [facility] [address] [place] [address], [place] * ANTI HIV 1/2 (06/06/2017 6:01 PM LIAISON ENGINEER) HIV-1/HIV-2 ANTIBODY Non-Reacti ve Non-Reacti ve 06/07/2017 1:44 PM LIAISON ENGINEER [facility] TR[facility] Blood BLOOD SPECIMEN / Unknown Venipuncture / Unknown 06/06/2017 6:01 PM LIAISON ENGINEER 06/06/2017 6:01 PM LIAISON ENGINEER Narrative [facility] - 06/07/2017 1:44 PM LIAISON ENGINEER HIV-1 p24 and HIV-1/HIV-2 Ab not detected us Erin Merida NP SEND OUTS F inal Result Performing Organization Address City/[facility]/ZIP Co de Phone Number [facility] [address] [place] [address], [place] * ANTI HCV (09/12/2011 11:28 AM LIAISON ENGINEER) ANTI HCV Non-reacti ve [facility] Blood specimen (specimen) BLOOD SPECIMEN / Unknown 09/12/2011 11:28 AM LIAISON ENGINEER 09/12/2011 11:20 AM LIAISON ENGINEER us Marion BATISTA SEND OUTS Final R esult [facility] INTERNAL ZIP [address] [place] [address] from Last 3 Months or Most Recently Relevant to Health Maintenance Insurance [facility] Care Teams Metal Tile Lather Relationship Specialty Start Date End Date John Singh MD [address] [place] [address] PCP - General Family Practice 01/09/21
--- OUTSIDE RECORDS SUMMARY | 2025-06-07 23:22 | XMS_ITS | Encounter Summary ---
Author Organization [facility] Address [address] [place] [id number] Care Team Providers Care Wire Tester Name Role Phone Unavailable Primary Care Provider Unavailabl e Encounter Details Date Type Department Care Team (Late st Contact Info) Description 04/28/2013 Historical Ophthalmology [facility] Chelsie Velasquez M.D. [address] [place] [address] Social History Tobacco Use Types Packs/Day Years Used Date Smoking Tobacco: Never Assessed Comments Unknown Sex and Gender Information Value Date Recorded Sex Assigned at Female 06/22/2024 2:54 PM FIRE BOAT ENGINEER Legal Sex Female 4:06 AM FIRE BOAT ENGINEER Gender Identity Female 06/22/2024 2:54 PM FIRE BOAT ENGINEER Sexual Orientation Straight 06/22/2024 2: 54 PM FIRE BOAT ENGINEER documented as of this encounter Progress Notes [...] appt with Dr. Ross If returning to [place] again in the future, i would be happy to see Ms. Wilder again Will communicate with Dr. Campbell and Dr. 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
--- OUTSIDE RECORDS SUMMARY | 2025-06-07 23:22 | XMS_ITS | Clinical Summary ---
Author Organization [facility] Address [address] [place] [address] Care Team Providers Care Bankruptcy Processor Name Role Phone [facility], [facility] Primary Care Provider Allergies No known [...] on file Legal Sex Female 3:19 AM REGISTERED NURSE POST PARTUM Gender Identity Not on file Sexual Orientation [...] of Treatment Not on file Care Teams Bankruptcy Processor Relationship Specialty Start Date End Date [facility], [facility] [address] [place] [address] PCP - General 12/25/17
[2025-06-07 23:28] VITALS: BP 131/78; PULSE 85; RESP 18; TEMP 36.7; O2SAT 99; BMI 27.6
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
[2025-06-08 00:23] LABS: Hematocrit* 39.3 % (33.0-51.0); Hemoglobin* 13.2 gm/dL (12.0-16.0); Immature Granulocytes Pct Auto 0.8 %; Mean Corpuscular HGB Conc 34 gm/dL (32-36); Mean Corpuscular Hemoglobin 30 pg (26-34); Mean Corpuscular Volume 90 fL (80-100); RDW Coefficient of Variation % 13.3 % (11.5-15.5); Red Blood Count* 4.35 m/uL (4.00-5.20); White Blood Count* 11.52 K/uL (4.50-11.00)
[2025-06-08 00:24] LABS: Immature Granulocytes Abs Auto 0.10 K/uL (0.00-0.30); Lymphocytes Absolute Auto 4.10 K/uL (0.90-2.90); Slide Review Reflex No
--- OUTSIDE RECORDS SUMMARY | 2025-06-08 00:29 | XMS_ITS | Clinical Summary ---
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
--- OUTSIDE RECORDS SUMMARY | 2025-06-08 00:29 | XMS_ITS | Encounter Summary ---
Author Organization [facility] Address [address] [place] [id number] Care Team Providers Care Double Cutter Name Role Phone Unavailable Primary Care Provider Unavailabl e Encounter Details Date Type Department Care Team (Late st Contact Info) Description 04/28/2013 Historical Ophthalmology [facility] Chelsie Velasquez M.D. 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 Ross If returning to [place] again in the future, i would be happy to see Ms. Wilder again Will communicate with Dr. Campbell and Dr. 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
--- OUTSIDE RECORDS SUMMARY | 2025-06-08 00:29 | XMS_ITS | Clinical Summary ---
Author Organization [facility] Address [address] [place] [address] Care Team Providers Care Perinatal Instructor Name Role Phone Unavailable Primary Care Provider Unavailabl e Source Comments Patient records contain information from all sites at [facility]. For routine questions regarding patient records, call [phone] during business hours, M-F 8:00 AM - 5:00 PM Central Time. Record requests for emergency care only can be directed to [phone] at any time.[facility] Allergies No known active allergies Medications prednisoLONE [...] Years Used Date Smoking Tobacco: Former Cigarettes [facility] Utilities Answer Date Recorded In the past 12 months has e [employer], gas, oil, or water [employer] threatened to shut off services in your [...] your living situation today? [facility] 06/22/2024 Education Answer Date Recorded What is the highest level of school you have completed or the highest degree you have received? 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 Legal Sex Female 4:06 AM ULTRASOUND TESTER Gender Identity Female 06/22/2024 2:54 PM ULTRASOUND TESTER Sexual Orientation Straight 06/22/2024 2: 54 PM ULTRASOUND TESTER Last Filed Vital Signs Vital Sign Reading Time Taken Comments Blood Pressure 137/82 06/23/2024 10:56 AM ULTRASOUND TESTER Pulse 88 06/23/2024 10:56 AM ULTRASOUND TESTER Temperature 37.2 C (99 F) 10/04/2020 9:09 AM ULTRASOUND TESTER Respiratory Rate - - Oxygen Saturation - - Inhaled Oxygen Concentration - - Weight 82.1 kg (181 lb) 06/23/2024 10:56 AM ULTRASOUND TESTER Height 165 cm (5' 4.96) 06/23/2024 10:56 AM ULTRASOUND TESTER Body Mass Index 30.16 06/23/2024 10:56 AM ULTRASOUND TESTER Plan of Treatment Health Maintenance Due Date [...] patient's age to complete this topic Insurance [facility]
--- OUTSIDE RECORDS SUMMARY | 2025-06-08 00:29 | XMS_ITS | Clinical Summary ---
Author Organization [facility] Address [address] [place] [address] Care Team Providers Care Nurses Director Name Role Phone John Singh MD Primary [...] History Relation Name Comments Heart Disease Father [place]-45 triple b ypass Cancer Maternal Grandfather Cancer-prostate [...] on file Legal Sex Female 5:23 AM CROP ADJUSTER Gender Identity Not on file Sexual Orientation [...] Procedure Name Priority Date/Time Associated Diagnosis Comments JOB DEVELOPMENT SPECIALIST THIN PREP PAP SCREEN IMAGED Routine 12/05/2020 12:00 PM CDT ANTI HIV 1/2 Routine 06/06/2017 6:01 PM CROP ADJUSTER Encounter for supervision of other normal , first trimester (HC) ANTI HCV Routine 09/12/2011 11:28 AM CROP ADJUSTER Supervision of normal first (HC) from Last 3 Months or Most Recently Relevant to Health Maintenance Results * JOB DEVELOPMENT SPECIALIST THIN PREP PAP SCREEN IMAGED (12/05/2020 12:00 PM CDT) Case Report Gynecologic Cytology Report Case: [id number] Authorizing Provider: Sandra Harrison Collected: 12/05/2020 1200 MMD Ordering Location: [facility] Received: 12/07/2020 1007 First Screen: Kenrick Ascencio Specimen: JOB DEVELOPMENT SPECIALIST ThinPrep Vial Screening, Cervical/Vaginal 12/15/2020 1:17 PM CDT [facility] [employer] [facility] INTERPRETATION/ RESULT NEGATIVE FOR INTRAEPITHELIAL LESION OR MALIGNANCY (NIL) (none) 12/15/2020 1:17 PM CDT [facility] [employer] [facility] at 1317 CDT SPECIMEN ADEQUACY Satisfactory for evaluation No endocervical component seen 12/15/2020 1:17 PM CDT [facility] [employer] [facility] HPV REQUEST HPV and PAP 12/15/2020 1:17 PM CDT [facility] [employer] [facility] Date of LMP 12/15/2020 1:17 PM CDT [facility] [employer] [facility] Comment:Ablation Last Pap Date 07/23/2016 12/15/2020 1:17 PM CDT [facility] Last Pap Result NIL 1:17 PM CDT [facility] Comment:Neg hpv Additional Information 12/15/2020 1:17 PM CDT [facility] Comment: Interpreted at [facility] Meetup [facility] - [address] [address] Automated Review Successful 12/15/2020 1:17 PM CDT [facility] [employer] [facility] Comment:Specimen processed s uccessfully by automated cotton jammer device, ThinPrep Imaging System, [employer] ANCILLARY TESTING JOB DEVELOPMENT SPECIALIST HPV Ordered, Please see separate report 12/15/2020 1:17 PM CDT [facility] [employer] [facility] [...] and malignant lesions. 12/15/2020 1:17 PM CDT [facility] Other (Cervical/Vagina l) 12/05/2020 12:00 PM CDT 12/07/2020 10:07 AM CDT us Sandra Harrison MD PATHOLOGY/CYTOLOGY Final Result [facility] [address] [place] [address], [place] * ANTI HIV 1/2 (06/06/2017 6:01 PM CROP ADJUSTER) HIV-1/HIV-2 ANTIBODY Non-Reacti ve Non-Reacti ve 06/07/2017 1:44 PM CROP ADJUSTER [facility] Blood BLOOD SPECIMEN / Unknown Venipuncture / Unknown 06/06/2017 6:01 PM CROP ADJUSTER 06/06/2017 6:01 PM CROP ADJUSTER Narrative [facility] - 06/07/2017 1:44 PM CROP ADJUSTER HIV-1 p24 and HIV-1/HIV-2 Ab not detected us Erin Merida NP SEND OUTS F inal Result Performing Organization Address City/[facility]/ZIP Co de Phone Number [facility] [address] [place] [address], [place] * ANTI HCV (09/12/2011 11:28 AM CROP ADJUSTER) ANTI HCV Non-reacti ve [facility] Blood specimen (specimen) BLOOD SPECIMEN / Unknown 09/12/2011 11:28 AM CROP ADJUSTER 09/12/2011 11:20 AM CROP ADJUSTER us Marion BATISTA SEND OUTS Final R esult [facility] INTERNAL ZIP [address] [place] [id number] from Last 3 Months or Most Recently Relevant to Health Maintenance Insurance [facility] Care Teams Nurses Director Relationship Specialty Start Date End Date John Singh MD [address] [place] [address] PCP - General Family Practice 01/09/21
[2025-06-08 00:35] LABS: Albumin* 4.1 g/dL (3.3-5.0); Chloride* 106 mmol/L (96-114); Sodium* 139 mmol/L (135-149)
[2025-06-08 00:36] LABS: Potassium* 3.6 mmol/L (3.6-5.1)
[2025-06-08 00:38] LABS: Alanine Aminotransferase* 19 U/L (4-35); Alkaline Phosphatase* 55 U/L (40-150); Anion Gap 5 mEq/L (7-15); Aspartate Amino Transferase* 21 U/L (12-35); Bilirubin Total* 0.6 mg/dL (0.1-1.5); Blood Urea Nitrogen* 11 mg/dL (5-24); Carbon Dioxide* 28 mmol/L (20-32); Creatinine* 0.6 mg/dL (0.5-1.5); Est. Creatinine Clearance* 104.30; Estimated Glomerular Filt Rate 111 ml/min; Total Protein* 7.4 g/dL (6.0-8.3)
[2025-06-08 00:39] LABS: Calcium* 9.2 mg/dL (8.4-10.6); Glucose* 97 mg/dL (60-115)
== END 2025-06-08 02:17 | disposition home or self-care (01) ==
PROVIDERS: Family Medicine; Emergency Provider Student in an Organized Health Care Education/Training Program; PCP Family Medicine
DX: S16.1XXA Strain of muscle, fascia and tendon at neck level, initial encounter (principal); R42 Dizziness and giddiness; N28.9 Disorder of kidney and ureter, unspecified; V49.40XA Driver injured in collision with unspecified motor vehicles in traffic accident, initial encounter
CPT/HCPCS: 36415; 70450; 71046; 72125; 74177; 80053; 85025; 99284; 99285; Q9967

== ENCOUNTER 2025-07-20 19:15 | Emergency (ER) | payer BC, SELFPAY ==
--- OUTSIDE RECORDS SUMMARY | 2009-07-15 18:00 | XMS_ITS | Continuity of Care Document ---
Author Organization [facility] Address [address] [address] [place] [address] Phone Care Team Providers Care Tree Girdler Name Role Phone Bull Rodríguez MD Unavailable Unavailable Procedures Procedure Date Init Inpt Cons New/est [facility] 9 Ugi Endo; W/bx 1/mx Subsqt Hosp-da E&m Minr Compl 9 Advance Directives Directive Yes / No Effective Date File Name No Information Encounters Encounter Description Practice Location Reason(s) For Visit Diagnoses Date Provider Providers Copied on Encounter Init Inpt Cons New/est [facility], [address] [address], [place], [place], [id number], [place] tel:[phone] [facility] No Information Marcos Gottlieb. [address] [facility], [facility] [address], [place], [place], [id number], [place]. tel:[phone] Referring Provider: Maco Devries MD, [address] [place] [address], [id number]. tel:[phone] Family History Family Member Type Diagnosis Age At Onset No Information Payers Payer name Insurance type Covered libertarian ID Authoriza tion(s) [employer] CI [id number] Social History Type Description Quantity Date Captured Comments Sex Female Smoking Status No Information Chief Complaint And Reason For Visit No Information Reason For Referral Reason For Referral No Information History Of Present Illness Encounter Date Complaint History Of Prese nt Illness No Information Functional Status Date Functional Assessmen t No Information Instructions Date Instruction Additional Infor mation No Information Assessments Type Assessment Date No Information Patient Care Teams Name Effective Dates (start - stop) Status Members No Information
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
--- OUTSIDE RECORDS SUMMARY | 2025-06-11 07:19 | XMS_ITS | Encounter Summary ---
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 OrganizationAddressCity/State/ZIP CodePhone Number [facility] [address] [place] [address], [facility] [place] [address] [place] [address] * Prothrombin Time (PT) (06/11/2025 1:07 PM [employer])ComponentValueRef RangeTest MethodAnalysis TimePerformed AtPathologist SignatureProthrombin Time, P11.19.4 - 12.5 sec06/11/2025 1:35 PM CSTSTMAINR1.00.9 - 1. 1:35 PM CSTSTMA Comment: ----ADDITIONAL INFORMATION---- Standard intensity warfarin therapeutic range: 2.0 to 3.0 ?? High intensity warfarin therapeutic range: 2.5 to 3.5 Specimen (Source)Anatomical Location / LateralityCollection Method / Volume Collection TimeReceived TimeBlood (Blood, Venous)06/11/2025 1:07 PM [facility] [employer] 06/11/2025 1:20 PM [employer] Narrative Authorizing ProviderResult TypeResult Jayden Langston M.D.LAB BLOOD ADD-ON Final ResultPerforming OrganizationAddressCity/State/ZIP CodePhone Number [facility] [address] [place] [address], [facility] [place] STMA [facility] [address] [place] [address] * (ABNORMAL) CBC with Differential, Blood (06/11/2025 1:07 PM [employer])ComponentValue Ref RangeTest MethodAnalysis TimePerformed AtPathologist SignatureHemoglobin 12.911.6 - 15.0 g/dL06/11/2025 1:37 PM DRKDQGEBupxvzgltj05.135.5 - 44.9 % 06/11/2025 1:37 PM CSTSTMAErythrocytes4.323.92 - 5.13 x10(12)/L108/11/2024 1:37 PM PJGSEQGKOS33.578.2 - 97.9 fL06/11/2025 1:37 PM CSTSTMARBC Distrib Width 14.012.2 - 16.1 %06/11/2025 1:37 PM CSTSTMAPlatelet Wbnvs798638 - 371 x10(9)/L 06/11/2025 1:37 PM CSDCYRRVskxnoobfy51.5(H)3.4 - 9.6 x10(9)/L108/11/2024 1:37 PM CSTSTMANeutrophils7.01(H)1.56 - 6.45 x10(9)/06/11/2025 1:37 PM CSTDHPM Lymphocytes3.34(H)0.95 - 3.07 x10(9)/06/11/2025 1:37 PM CSTSTMAMonocytes0.97 (H)0.26 - 0.81 x10(9)/L108/11/2024 1:37 PM CSTSTMAEosinophils0.130.03 - 0.48 x10(9)/L108/11/2024 1:37 PM CSTSTMABasophils0.030.01 - 0.08 x10(9)/L108/11/2024 1:37 PM CSTSTMASpecimen (Source)Anatomical Location / LateralityCollection Method / VolumeCollection TimeReceived TimeBlood (Blood, Venous)06/11/2025 1:07 PM CST06/11/2025 1:20 PM [employer] Narrative Authorizing ProviderResult TypeResult Jayden Langston M.D.LAB BLOOD ADD-ON Final ResultPerforming OrganizationAddressCity/State/ZIP CodePhone Number [facility] [address] [place] [address], [place] STMA [facility] [address] [place] [address] [facility] [address] [place] [address] * Lipase (06/11/2025 1:07 PM [employer])ComponentValueRef RangeTest MethodAnalysis Time Performed AtPathologist SignatureLipase, S3013 - 60 U/L108/11/2024 2:00 PM [employer] DTLSpecimen (Source)Anatomical Location / LateralityCollection Method / Volume Collection TimeReceived TimeBlood (Blood, Venous)06/11/2025 1:07 PM [facility] [employer] 06/11/2025 1:25 PM [employer] Narrative Authorizing ProviderResult TypeResult Jayden Langston M.D.LAB BLOOD ADD-ON Final ResultPerforming OrganizationAddressCity/State/ZIP CodePhone Number [facility] [address] [place] [address], [facility] [place] DTL [facility] [address] [place] [address] * (ABNORMAL) Hepatic Function Panel (06/11/2025 1:07 PM [employer])ComponentValueRef RangeTest MethodAnalysis TimePerformed AtPathologist SignatureBilirubin, Total, S0.60.0 - 1.2 mg/dL06/11/2025 2:00 PM CSTDTLBilirubin, Direct, S0.30.0 - 0.3 mg/dL06/11/2025 2:00 PM CSTDTLAspartate Aminotransferase (AST), S104(H)8 - 43 U/L108/11/2024 2:00 PM CSTDTLAlanine Aminotransferase (ALT), S67(H)7 - 45 U/L108/11/2024 2:00 PM CSTDTLAlkaline Phosphatase, S6735 - 104 U/L108/11/2024 2:00 PM CSTDTLAlbumin, S4.03.5 - 5.0 g/dL06/11/2025 2:00 PM CSTDTLProtein, Total, S6.2(L)6.3 - 7.9 g/dL06/11/2025 2:00 PM CSTDTLSpecimen (Source) Anatomical Location / LateralityCollection Method / VolumeCollection Time Received TimeBlood (Blood, Venous)06/11/2025 1:07 PM CST06/11/2025 1:25 PM [employer] Narrative Authorizing ProviderResult TypeResult Jayden Langston M.D.LAB BLOOD ADD-ON Final ResultPerforming OrganizationAddressCity/State/ZIP CodePhone Number [facility] [address] [place] [address], [place] DTL [facility] [address] [place] [address] * Basic Metabolic Panel (06/11/2025 1:07 PM [employer])ComponentValueRef RangeTest MethodAnalysis TimePerformed AtPathologist SignaturePotassium, P3.93.6 - 5.2 mmol/L108/11/2024 1:39 PM CSTSTMASodium, Z402931 - 145 mmol/L108/11/2024 1:39 PM CSTSTMAChloride, N21746 - 107 mmol/L108/11/2024 1:39 PM CSTSTMABicarbonate, P 2522 - 29 mmol/L108/11/2024 1:39 PM CSTSTMAAnion Gap, P97 - 15108/11/2024 1:39 PM CSTSTMABUN (Blood Urea Nitrogen), P106 - 21 mg/dL06/11/2025 1:39 PM CSTSTMA Creatinine0.630.59 - 1.04 mg/dL06/11/2025 1:39 PM CSTSTMAEstimated GFR (eGFR) >90>=60 mL/min/BSA06/11/2025 1:39 PM CSTSTMAComment: Estimated GFR calculated using the 2020 CKD_EPI creatinine equation. Calcium, Total, P9.18.6 - 10.0 mg/dL06/11/2025 1:39 PM CSTSTMAGlucose, G95969 - 140 mg/dL06/11/2025 1:39 PM CSTSTMASpecimen (Source)Anatomical Location / LateralityCollection Method / VolumeCollection TimeReceived TimeBlood (Blood, Venous)06/11/2025 1:07 PM CST06/11/2025 1:20 PM [employer] Narrative Authorizing ProviderResult TypeResult Jayden Langston M.D.LAB BLOOD ADD-ON Final ResultPerforming OrganizationAddressCity/State/ZIP CodePhone Number [facility] [address] [place] [address], [place] STMA [facility] [address] [place] [address] * hCG (Human Chorionic Gonadotropin), Quantitative, (06/11/2025 1:07 PM [employer])ComponentValueRef RangeTest MethodAnalysis TimePerformed AtPathologist SignatureHCG, Quantitative, , P1.0<5 IU/L108/11/2024 1:38 PM CSTSTMA Comment: Chioma- and postmenopausal females may have detectable hCG concentrations (<=14 IU/L) due to pituitary production of hCG. ??Serum FSH measurement may aid in ruling out in this population. Specimen (Source)Anatomical Location / LateralityCollection Method / Volume Collection TimeReceived TimeBlood (Blood, Venous)06/11/2025 1:07 PM [facility] [employer] 06/11/2025 1:20 PM [employer] Narrative Authorizing ProviderResult TypeResult Jayden Langston M.D.LAB BLOOD ADD-ON Final ResultPerforming OrganizationAddressCity/State/ZIP CodePhone Number [facility] [address] [place] [address], [place] ST[place] [facility] [address] [place] [address] * Dipstick, Urine (06/11/2025 12:59 PM [employer])ComponentValueRef RangeTest Method Analysis TimePerformed AtPathologist SignatureHemoglobin, QL, UNegative Yvodxkug22/14/2025 1:56 PM CSTDTLLeukocyte Esterase, UNegativeNegative 06/11/2025 1:56 PM CSTDTLNitrite, CTcaoxcliAiqxmlkh57/14/2025 1:56 PM CSTDTL Ketone, UNegativeNegative mg/dL06/11/2025 1:56 PM CSTDTLGlucose, UNegative Negative mg/dL06/11/2025 1:56 PM CSTDTLSpecimen (Source)Anatomical Location / LateralityCollection Method / VolumeCollection TimeReceived TimeUrine 06/11/2025 12:59 PM CST06/11/2025 1:37 PM [employer] Narrative Authorizing ProviderResult TypeResult Jayden Langston M.D.LAB URINE ORDERABLESFinal ResultPerforming OrganizationAddressCity/State/ZIP CodePhone Number [facility] [address] [place] [address], [place] DTL [facility] [address] [place] [address] * Osmolality, Urine (06/11/2025 12:59 PM [employer])ComponentValueRef RangeTest Method Analysis TimePerformed AtPathologist SignatureOsmolality, [id number] - 1150 mOsm/kg06/11/2025 1:53 PM CSTDTLSpecimen (Source)Anatomical Location / LateralityCollection Method / VolumeCollection TimeReceived TimeUrine 06/11/2025 12:59 PM CST06/11/2025 1:37 PM [employer] Narrative Authorizing ProviderResult TypeResult Jayden Langston M.D.LAB URINE ORDERABLESFinal ResultPerforming OrganizationAddressCity/State/ZIP CodePhone Number [facility] [address] [place] [address] * pH, Urine (06/11/2025 12:59 PM [employer]ANNING)ComponentValueRef RangeTest MethodAnalysis TimePerformed AtPathologist SignaturepH, U6.14.5 - 8.011/ 1:53 PM [employer] DTLSpecimen (Source)Anatomical Location / LateralityCollection Method / Volume Collection TimeReceived CdolVdlej42/14/2025 12:59 PM CST06/11/2025 1:37 PM [employer] Narrative Authorizing ProviderResult TypeResult Jayden Langston M.D.LAB URINE ORDERABLESFinal ResultPerforming OrganizationAddressCity/State/ZIP CodePhone Number [facility] [address] [place] [address], [facility] [address] [place] [address] * (ABNORMAL) Microscopic Automated (06/11/2025 12:59 PM [employer])ComponentValueRef RangeTest MethodAnalysis TimePerformed AtPathologist SignatureMicroscopy Cmxvycpp97/14/2025 1:56 PM CSTDTLRBC3-10(A)<3 /hpf06/11/2025 1:56 PM CSTDTL Dysmorphic RBC<25<25 %06/11/2025 1:56 PM CSTDTLWBC1-3/hpf06/11/2025 1:56 PM CSTDTLComment: ----REFERENCE VALUE---- <4 (Males) <11 (Females) Squamous Epithelial Cells, U1-3/hpf06/11/2025 1:56 PM CSTDTLSpecimen (Source) Anatomical Location / LateralityCollection Method / VolumeCollection Time Received IahdXvgac14/14/2025 12:59 PM CST06/11/2025 1:37 PM [employer] Narrative Authorizing ProviderResult TypeResult Jayden Langston M.D.LAB URINE ORDERABLESFinal ResultPerforming OrganizationAddressCity/State/ZIP CodePhone Number [facility] [address] [place] [address], [facility] [address] [place] [address] * Urinalysis, with Microscopic: Urine, Catheter (06/11/2025 12:59 PM [employer]) ComponentValueRef RangeTest MethodAnalysis TimePerformed AtPathologist SignatureSourceUrine, Urine, Elvsyyau12/14/2025 1:37 PM CSTDTLColor, UYellow 06/11/2025 1:37 PM CSTDTLClarity, IAbuvf1306/11/2025 1:37 PM CSTDTLProtein, U9 <26 mg/dL06/11/2025 2:47 PM CSTDTLProtein/Osmolality0.12<0.42 ratio06/11/2025 2:47 PM CSTDTLPredicted 24 HR Protein, U99<229 mg/24 h108/11/2024 2:47 PM [employer] DTLPredicted Jbkuo10-135oh/24 h108/11/2024 2:47 PM CSTDTLSpecimen (Source) Anatomical Location / LateralityCollection Method / VolumeCollection Time Received TimeUrine (Urine, Catheter)06/11/2025 12:59 PM CST06/11/2025 1:37 PM [employer] Narrative Authorizing ProviderResult TypeResult Jayden Langston M.D.LAB URINE ORDERABLESFinal ResultPerforming OrganizationAddressCity/State/ZIP CodePhone Number [facility] [address] [place] [address], [facility] [address] [place] [address] * MR Brain without IV Contrast (06/11/2025 12:10 PM VP [employer]ANN[employer])Anatomical Region LateralityModalityHead, Brain, Neuroradiology RST LOS, Neuroradiology ARZ LOS, Neuroradiology FLA LOSN/AMagnetic ResonanceSpecimen (Source)Anatomical Location / LateralityCollection Method / VolumeCollection TimeReceived Time Impressions 06/11/2025 12:20 PM [employer] No acute traumatic findings. Chronic encephalomalacia/gliosis right frontal lobe. Narrative 06/11/2025 12:20 PM [employer] EXAM: MR BRAIN WITHOUT IV CONTRAST COMPARISON: MRI brain 10/13/2002 FINDINGS: Again seen are areas chronic encephalomalacia and gliosis in the right frontal lobe, stable since 2002. No evidence of acute infarct. No substantial hemosiderin deposition. Prominent secretions in the posterior nasopharynx. Partial desiccation right maxillary sinus. Remainder essentially negative or unchanged. Procedure Note James Saldaña M.D. - 06/11/2025 EXAM: MR BRAIN WITHOUT IV CONTRAST COMPARISON: MRI brain 10/13/2002 FINDINGS: Again seen are areas chronic encephalomalacia and gliosis in theright frontal lobe, stable since 2002. No evidence of acute infarct. Nosubstantial hemosiderin deposition. Prominent secretions in the posteriornasopharynx. Partial desiccation right maxillary sinus. Remainderessentially negative or unchanged. IMPRESSION: No acute traumatic findings. Chronic encephalomalacia/gliosis rightfrontal lobe. Authorizing ProviderResult TypeResult Jayden Langston M.D.[facility] MRI PROCEDURES Final Result * DX Foot Ankle Left 3+ Views (06/11/2025 10:16 AM VP [employer])Anatomical Region LateralityModalityLower Extremity, Foot, Ankle, Musculoskeletal RST LOS, Musculoskeletal ARZ LOS, Muskuloskeletal FLALOSLeftDigital RadiographySpecimen (Source)Anatomical Location / LateralityCollection Method / VolumeCollection TimeReceived Time Impressions 06/11/2025 10:28 AM [employer] PELVIS: Compared with the 05/20/2013 radiographs. No radiographic evidence of acute osseous pathology. Presumed contrast in the bladder. FEMUR: No prior studies are available for comparison. No radiographic evidence of acute osseous pathology. KNEE: Compared with the 05/20/2013 radiographs. No radiographic evidence of acute osseous pathology. Potential tiny suprapatellar effusion, new. TIBIA, FIBULA, FOOT: No prior studies are available for comparison. No radiographic evidence of acute osseous pathology. Narrative 06/11/2025 10:28 AM VP [employer]ING EXAM: DX KNEE LEFT 4+ VIEWS, DX FEMUR LEFT 2 VIEWS, DX TIBIA FIBULA LEFT 2 VIEWS, DX PELVIS 1-2 VIEWS, DX FOOT ANKLE LEFT 3+ VIEWS Procedure Note Nic Blanco M.D. - 06/11/2025 EXAM: DX KNEE LEFT 4+ VIEWS, DX FEMUR LEFT 2 VIEWS, DX TIBIA FIBULA LEFT2 VIEWS, DX PELVIS 1-2 VIEWS, DX FOOT ANKLE LEFT 3+ VIEWS IMPRESSION: PELVIS: Compared with the 05/20/2013 radiographs. No radiographic evidenceof acute osseous pathology. Presumed contrast in the bladder. FEMUR: No prior studies are available for comparison. No radiographicevidence of acute osseous pathology. KNEE: Compared with the 05/20/2013 radiographs. No radiographic evidenceof acute osseous pathology. Potential tiny suprapatellar effusion, new. TIBIA, FIBULA, FOOT: No prior studies are available for comparison. No radiographic evidence of acute osseous pathology. Authorizing ProviderResult TypeResult StatusSidra Nuno M.D.[facility] DIAGNOSTIC IMAGING PROCEDURESFinal Result * DX Pelvis 1-2 Views (06/11/2025 10:16 AM VP [employer]IC [employer]ANNING)Anatomical RegionLaterality ModalityPelvis, Musculoskeletal RST LOS, Musculoskeletal ARZ LOS, Muskuloskeletal FLA LOSN/ADigital RadiographySpecimen (Source)Anatomical Location / LateralityCollection Method / VolumeCollection TimeReceived Time Impressions 06/11/2025 10:28 AM [employer]ING PELVIS: Compared with the 05/20/2013 radiographs. No radiographic evidence of acute osseous pathology. Presumed contrast in the bladder. FEMUR: No prior studies are available for comparison. No radiographic evidence of acute osseous pathology. KNEE: Compared with the 05/20/2013 radiographs. No radiographic evidence of acute osseous pathology. Potential tiny suprapatellar effusion, new. TIBIA, FIBULA, FOOT: No prior studies are available for comparison. No radiographic evidence of acute osseous pathology. Narrative 06/11/2025 10:28 AM [employer] EXAM: DX KNEE LEFT 4+ VIEWS, DX FEMUR LEFT 2 VIEWS, DX TIBIA FIBULA LEFT 2 VIEWS, DX PELVIS 1-2 VIEWS, DX FOOT ANKLE LEFT 3+ VIEWS Procedure Note Nic Blanco M.D. - 06/11/2025 EXAM: DX KNEE LEFT 4+ VIEWS, DX FEMUR LEFT 2 VIEWS, DX TIBIA FIBULA LEFT2 VIEWS, DX PELVIS 1-2 VIEWS, DX FOOT ANKLE LEFT 3+ VIEWS IMPRESSION: PELVIS: Compared with the 05/20/2013 radiographs. No radiographic evidenceof acute osseous pathology. Presumed contrast in the bladder. FEMUR: No prior studies are available for comparison. No radiographicevidence of acute osseous pathology. KNEE: Compared with the 05/20/2013 radiographs. No radiographic evidenceof acute osseous pathology. Potential tiny suprapatellar effusion, new. TIBIA, FIBULA, FOOT: No prior studies are available for comparison. No radiographic evidence of acute osseous pathology. Authorizing ProviderResult TypeResult StatusSidra Nuno M.D.[facility] DIAGNOSTIC IMAGING PROCEDURESFinal Result * DX Tibia Fibula Left 2 Views (06/11/2025 10:16 AM VP [employer]IC [employer]ANNING)Anatomical Region LateralityModalityLower Extremity, TibFib, Musculoskeletal RST LOS, Musculoskeletal ARZ LOS, Muskuloskeletal FLA LOSLeftDigital Radiography Specimen (Source)Anatomical Location / LateralityCollection Method / Volume Collection TimeReceived Time Impressions 06/11/2025 10:28 AM [employer]ING PELVIS: Compared with the 05/20/2013 radiographs. No radiographic evidence of acute osseous pathology. Presumed contrast in the bladder. FEMUR: No prior studies are available for comparison. No radiographic evidence of acute osseous pathology. KNEE: Compared with the 05/20/2013 radiographs. No radiographic evidence of acute osseous pathology. Potential tiny suprapatellar effusion, new. TIBIA, FIBULA, FOOT: No prior studies are available for comparison. No radiographic evidence of acute osseous pathology. Narrative 06/11/2025 10:28 AM [employer]ING EXAM: DX KNEE LEFT 4+ VIEWS, DX FEMUR LEFT 2 VIEWS, DX TIBIA FIBULA LEFT 2 VIEWS, DX PELVIS 1-2 VIEWS, DX FOOT ANKLE LEFT 3+ VIEWS Procedure Note Nic Blanco M.D. - 06/11/2025 EXAM: DX KNEE LEFT 4+ VIEWS, DX FEMUR LEFT 2 VIEWS, DX TIBIA FIBULA LEFT2 VIEWS, DX PELVIS 1-2 VIEWS, DX FOOT ANKLE LEFT 3+ VIEWS IMPRESSION: PELVIS: Compared with the 05/20/2013 radiographs. No radiographic evidenceof acute osseous pathology. Presumed contrast in the bladder. FEMUR: No prior studies are available for comparison. No radiographicevidence of acute osseous pathology. KNEE: Compared with the 05/20/2013 radiographs. No radiographic evidenceof acute osseous pathology. Potential tiny suprapatellar effusion, new. TIBIA, FIBULA, FOOT: No prior studies are available for comparison. No radiographic evidence of acute osseous pathology. Authorizing ProviderResult TypeResult StatusChristopher Destini Camara M.D.[facility] DIAGNOSTIC IMAGING PROCEDURESFinal Result * DX Femur Left 2 Views (06/11/2025 10:16 AM VP [employer]GIC PLANNING)Anatomical RegionLaterality ModalityLower Extremity, Femur, Musculoskeletal RST LOS, Musculoskeletal ARZ LOS, Muskuloskeletal FLA LOSLeftDigital RadiographySpecimen (Source)Anatomical Location / LateralityCollection Method / VolumeCollection TimeReceived Time Impressions 06/11/2025 10:28 AM [employer]ING PELVIS: Compared with the 05/20/2013 radiographs. No radiographic evidence of acute osseous pathology. Presumed contrast in the bladder. FEMUR: No prior studies are available for comparison. No radiographic evidence of acute osseous pathology. KNEE: Compared with the 05/20/2013 radiographs. No radiographic evidence of acute osseous pathology. Potential tiny suprapatellar effusion, new. TIBIA, FIBULA, FOOT: No prior studies are available for comparison. No radiographic evidence of acute osseous pathology. Narrative 06/11/2025 10:28 AM VP [employer]IC [employer]ANNING EXAM: DX KNEE LEFT 4+ VIEWS, DX FEMUR LEFT 2 VIEWS, DX TIBIA FIBULA LEFT 2 VIEWS, DX PELVIS 1-2 VIEWS, DX FOOT ANKLE LEFT 3+ VIEWS Procedure Note Nic Blanco M.D. - 06/11/2025 EXAM: DX KNEE LEFT 4+ VIEWS, DX FEMUR LEFT 2 VIEWS, DX TIBIA FIBULA LEFT2 VIEWS, DX PELVIS 1-2 VIEWS, DX FOOT ANKLE LEFT 3+ VIEWS IMPRESSION: PELVIS: Compared with the 05/20/2013 radiographs. No radiographic evidenceof acute osseous pathology. Presumed contrast in the bladder. FEMUR: No prior studies are available for comparison. No radiographicevidence of acute osseous pathology. KNEE: Compared with the 05/20/2013 radiographs. No radiographic evidenceof acute osseous pathology. Potential tiny suprapatellar effusion, new. TIBIA, FIBULA, FOOT: No prior studies are available for comparison. No radiographic evidence of acute osseous pathology. Authorizing ProviderResult TypeResult StatusChrisnatalia Camara M.D.[facility] PROCEDURESFinal Result * DX Knee Left 4+ Views (06/11/2025 10:16 AM VP [employer]GIC PLANNING)Anatomical RegionLaterality ModalityLower Extremity, Knee, Musculoskeletal RST LOS, Musculoskeletal ARZ LOS, Muskuloskeletal FLA LOSLeftDigital RadiographySpecimen (Source)Anatomical Location / LateralityCollection Method / VolumeCollection TimeReceived Time Impressions 06/11/2025 10:28 AM VP [employer]GIC [employer]ANNING PELVIS: Compared with the 05/20/2013 radiographs. No radiographic evidence of acute osseous pathology. Presumed contrast in the bladder. FEMUR: No prior studies are available for comparison. No radiographic evidence of acute osseous pathology. KNEE: Compared with the 05/20/2013 radiographs. No radiographic evidence of acute osseous pathology. Potential tiny suprapatellar effusion, new. TIBIA, FIBULA, FOOT: No prior studies are available for comparison. No radiographic evidence of acute osseous pathology. Narrative 06/11/2025 10:28 AM VP [employer]IC [employer]ANNING EXAM: DX KNEE LEFT 4+ VIEWS, DX FEMUR LEFT 2 VIEWS, DX TIBIA FIBULA LEFT 2 VIEWS, DX PELVIS 1-2 VIEWS, DX FOOT ANKLE LEFT 3+ VIEWS Procedure Note Nic Blanco M.D. - 06/11/2025 EXAM: DX KNEE LEFT 4+ VIEWS, DX FEMUR LEFT 2 VIEWS, DX TIBIA FIBULA LEFT2 VIEWS, DX PELVIS 1-2 VIEWS, DX FOOT ANKLE LEFT 3+ VIEWS IMPRESSION: PELVIS: Compared with the 05/20/2013 radiographs. No radiographic evidenceof acute osseous pathology. Presumed contrast in the bladder. FEMUR: No prior studies are available for comparison. No radiographicevidence of acute osseous pathology. KNEE: Compared with the 05/20/2013 radiographs. No radiographic evidenceof acute osseous pathology. Potential tiny suprapatellar effusion, new. TIBIA, FIBULA, FOOT: No prior studies are available for comparison. No radiographic evidence of acute osseous pathology. Authorizing ProviderResult TypeResult StatusChkvng Camara M.D.[facility] DIAGNOSTIC IMAGING PROCEDURESFinal Result * CT Thoracic and Lumbar Spine by Reconstruction (06/11/2025 9:26 AM VP [employer]IC [employer]ANNING) Anatomical RegionLateralityModalityThoracic Spine, Neuroradiology RST LOS, Neuroradiology ARZ LOS, Neuroradiology FLA LOSN/AComputed Tomography, Computed TomographySpecimen (Source)Anatomical Location / LateralityCollection Method / VolumeCollection TimeReceived Time Impressions 06/11/2025 10:02 AM VP [employer]GIC [employer]ANNING No acute traumatic findings within the thoracic or lumbar spine. Narrative 06/11/2025 10:02 AM VP [employer]IC [employer]ANNING EXAM: CT THORACIC AND LUMBAR SPINE BY RECONSTRUCTION COMPARISON: Lumbar spine radiograph 05/20/2013. FINDINGS: No acute fractures or traumatic malalignment within the thoracic or lumbar spine. Minimaldegenerative changes in the thoracic and lumbar spine. Mild hypertrophic changes of the upper thoracic spine. Schmorl's nodule involving the inferior endplate of L1. Loss of disc height with associated vacuum phenomenon at L5-S1. No high-grade spinal canal or neural foraminal narrowing. Complex multi septated lesion in the right kidney is only partially included on this exam. Procedure Note Todd Yeager M.D., Ph.D. - 06/11/2025 EXAM: CT THORACIC AND LUMBAR SPINE BY RECONSTRUCTION COMPARISON: Lumbar spine radiograph 05/20/2013. FINDINGS: No acute fractures or traumatic malalignment within the thoracicor lumbar spine. Minimal degenerative changes in the thoracic and lumbarspine. Mild hypertrophic changes of the upper thoracic spine. Schmorl'snodule involving the inferior endplate of L1. Loss of disc height withassociated vacuum phenomenon at L5-S1. No high-grade spinal canal orneural foraminal narrowing. Complex multi septated lesion in the right kidney is only partiallyincluded on this exam. IMPRESSION: No acute traumatic findings within the thoracic or lumbar spine. Authorizing ProviderResult TypeResult Jayden Langston M.D.[facility] [place] CT PROCEDURES Final Result * CT Abdomen Pelvis with IV Contrast (06/11/2025 9:26 AM [facility] [employer])Anatomical Region LateralityModalityAbdomen, Pelvis, Abdominal RST LOS, Abdominal ARZ LOS, Abdominal FLA LOSN/AComputed Tomography, Computed TomographySpecimen (Source) Anatomical Location / LateralityCollection Method / VolumeCollection Time Received Time06/11/2025 9:06 AM [facility] [employer] Impressions 06/11/2025 9:43 AM [facility] [employer] 1. No acute osseous or visceral injury to the chest, abdomen, or pelvis. Moderate subcutaneous hematoma overlying the left hip. 2. ??Complex right renal cyst with postprocedural changes related to prior cyst aspiration. Consider nonemergent follow-up with contrast-enhanced MR for further evaluation. Narrative 06/11/2025 9:43 AM [facility] [employer] EXAM: CT CHEST WITH IV CONTRAST, CT ABDOMEN PELVIS WITH IV CONTRAST COMPARISON: CT abdomen and pelvis 2020. FINDINGS: CHEST No acute osseous abnormality. No soft tissue contusion. No centrally obstructive thrombus. No acute pulmonary abnormality. Scattered mosaic attenuation likely representing air trapping and bilateral gravity dependent subsegmental atelectasis. ABDOMEN/PELVIS Moderate subcutaneous hematoma overlying the left hip. No evidence of solid organ injury. No pneumoperitoneum. No free fluid in the abdomen or pelvis. Patent mesenteric vasculature. Mild soft atheromatous plaque of the infrarenal abdominal aorta. Negative liver. Status post cholecystectomy. Tiny splenic cyst. Negative pancreas and adrenal glands. Postprocedural changes related to right renal cyst aspiration (02/13/2021). Complex multiseptated right renal cyst containing internal calcifications, measuring 5.5 x 3.7 cm. Normal caliber small and large bowel. Negative appendix. Scattered colonic diverticulosis. Sclerosis along the right greater than left sacroiliac joints. Scattered enostoses. Procedure Note Dina, Blaine Guillen M.D. - 06/11/2025 EXAM: CT CHEST WITH IV CONTRAST, CT ABDOMEN PELVIS WITH IV CONTRAST COMPARISON: CT abdomen and pelvis 2020. FINDINGS: CHEST No acute osseous abnormality. No soft tissue contusion. No centrally obstructive thrombus. No acute pulmonary abnormality. Scattered mosaic attenuation likelyrepresenting air trapping and bilateral gravity dependent subsegmentalatelectasis. ABDOMEN/PELVIS Moderate subcutaneous hematoma overlying the left hip. No evidence of solid organ injury. No pneumoperitoneum. No free fluid inthe abdomen or pelvis. Patent mesenteric vasculature. Mild soft atheromatous plaque of theinfrarenal abdominal aorta. Negative liver. Status post cholecystectomy. Tiny splenic cyst. Negativepancreas and adrenal glands. Postprocedural changes related to right renalcyst aspiration (02/13/2021). Complex multiseptated right renal cystcontaining internal calcifications, measuring 5.5 x 3.7 cm. Normal caliber small and large bowel. Negative appendix. Scattered colonic diverticulosis. Sclerosis along the right greater than left sacroiliac joints. Scattered enostoses. IMPRESSION: 1. No acute osseous or visceral injury to the chest, abdomen, or pelvis.Moderate subcutaneous hematoma overlying the left hip. 2. Complex right renal cyst with postprocedural changes related to priorcyst aspiration. Consider nonemergent follow-up with contrast-enhanced MRfor further evaluation. Authorizing ProviderResult TypeResult Jayden Langston M.D.[facility] CT PROCEDURES Final Result * CT Chest with IV Contrast (06/11/2025 9:26 AM [facility] [employer])Anatomical RegionLaterality ModalityChest, Thoracic RST LOS, Thoracic ARZ LOS, Thoracic ARZ LOS, Thoracic FLA LOSN/AComputed Tomography, Computed TomographySpecimen (Source)Anatomical Location / LateralityCollection Method / VolumeCollection TimeReceived Time 06/11/2025 9:08 AM [facility] [employer] Impressions 06/11/2025 9:43 AM [facility] [employer] 1. No acute osseous or visceral injury to the chest, abdomen, or pelvis. Moderate subcutaneous hematoma overlying the left hip. 2. ??Complex right renal cyst with postprocedural changes related to prior cyst aspiration. Consider nonemergent follow-up with contrast-enhanced MR for further evaluation. Narrative 06/11/2025 9:43 AM [facility] [employer] EXAM: CT CHEST WITH IV CONTRAST, CT ABDOMEN PELVIS WITH IV CONTRAST COMPARISON: CT abdomen and pelvis 2020. FINDINGS: CHEST No acute osseous abnormality. No soft tissue contusion. No centrally obstructive thrombus. No acute pulmonary abnormality. Scattered mosaic attenuation likely representing air trapping and bilateral gravity dependent subsegmental atelectasis. ABDOMEN/PELVIS Moderate subcutaneous hematoma overlying the left hip. No evidence of solid organ injury. No pneumoperitoneum. No free fluid in the abdomen or pelvis. Patent mesenteric vasculature. Mild soft atheromatous plaque of the infrarenal abdominal aorta. Negative liver. Status post cholecystectomy. Tiny splenic cyst. Negative pancreas and adrenal glands. Postprocedural changes related to right renal cyst aspiration (02/13/2021). Complex multiseptated right renal cyst containing internal calcifications, measuring 5.5 x 3.7 cm. Normal caliber small and large bowel. Negative appendix. Scattered colonic diverticulosis. Sclerosis along the right greater than left sacroiliac joints. Scattered enostoses. Procedure Note Bold, Blaine Guillen M.D. - 06/11/2025 EXAM: CT CHEST WITH IV CONTRAST, CT ABDOMEN PELVIS WITH IV CONTRAST COMPARISON: CT abdomen and pelvis 2020. FINDINGS: CHEST No acute osseous abnormality. No soft tissue contusion. No centrally obstructive thrombus. No acute pulmonary abnormality. Scattered mosaic attenuation likelyrepresenting air trapping and bilateral gravity dependent subsegmentalatelectasis. ABDOMEN/PELVIS Moderate subcutaneous hematoma overlying the left hip. No evidence of solid organ injury. No pneumoperitoneum. No free fluid inthe abdomen or pelvis. Patent mesenteric vasculature. Mild soft atheromatous plaque of theinfrarenal abdominal aorta. Negative liver. Status post cholecystectomy. Tiny splenic cyst. Negativepancreas and adrenal glands. Postprocedural changes related to right renalcyst aspiration (02/13/2021). Complex multiseptated right renal cystcontaining internal calcifications, measuring 5.5 x 3.7 cm. Normal caliber small and large bowel. Negative appendix. Scattered colonic diverticulosis. Sclerosis along the right greater than left sacroiliac joints. Scattered enostoses. IMPRESSION: 1. No acute osseous or visceral injury to the chest, abdomen, or pelvis.Moderate subcutaneous hematoma overlying the left hip. 2. Complex right renal cyst with postprocedural changes related to priorcyst aspiration. Consider nonemergent follow-up with contrast-enhanced MRfor further evaluation. Authorizing ProviderResult TypeResult Jayden Langston M.D.[facility] [place] CT PROCEDURES Final Result * ECG 12 Lead (06/11/2025 8:26 AM [facility] [employer])ComponentValueRef RangeTest MethodAnalysis TimePerformed AtPathologist SignatureVentricular Rate ECG/[id number] Korrunrq361yqJEXLRUKA Zpzynjmw95txUXOXND Lamvztlb244xzNXKOBXH Djvyghob622ze MUSEP Xqjp22fvhaolmHZWWB Mfta95vwahaguINMDE Wave Tpmz05rwoiugkQGYXZijcsjyd (Source)Anatomical Location / LateralityCollection Method / VolumeCollection TimeReceived Time06/11/2025 8:26 AM CST06/11/2025 8:31 AM [facility] [employer] Impressions MUSE - 06/11/2025 8:31 AM [employer] Normal sinus rhythm Normal ECG When compared with ECG of 11-Jun-2025 04:43, QRS voltage has increased in the precordial leads Nonspecific T wave abnormality is no longer evident Reviewed by BLAINE Putnam Narrative Procedure Note Shalom White M.D. - 06/11/2025 IMPRESSION: Normal sinus rhythm Normal ECG When compared with ECG of 11-Jun-2025 04:43, QRS voltage has increased in the precordial leads Nonspecific T wave abnormality is no longer evident Reviewed by BLAINE Putnam Authorizing ProviderResult TypeResult Jayden Langston M.D.ECG ORDERABLESFinal ResultPerforming OrganizationAddressCity/State/ZIP CodePhone Number MUSE NA documented in this encounter Visit Diagnoses Diagnosis Concussion No Loss Of Consciousness Subsequent- Primary Concussion No Loss Of Consciousness Subsequent Dizziness Debility Myofascial Pain Syndrome Decline Functional Status [R53.81] Vertigo documented in this encounter Admitting Diagnoses Diagnosis Concussion No Loss Of Consciousness Subsequent documented in this encounter Administered Medications Medication OrderMAR ActionAction DateDoseRateSite acetaminophen tablet 1,000 mg (TylenoL) 1,000 mg, oral, Once, On Sat06/11/25 at 1338, For 1 dose Given06/11/2025 1:40 PM CST1,000 mg acetaminophen tablet 1,000 mg (TylenoL) 1,000 mg, oral, 4 times daily, First dose (after last modification) on Sat06/12/25 at 1200 Given06/13/2025 12:00 PM CST1,000 acLlhth5106/13/2025 8:58 AM CST1,000 mgGiven 06/12/2025 8:05 PM CST1,000 mg acetaminophen tablet 650 mg (TylenoL) 650 mg, oral, 4 times daily, First dose (after last modification) on Sat06/12/25 at 0800 06/12/2025 9:17 AM FWI864 mg wkykuvfgpyffi-iiumllxwwk-pwrvblut in Lipoderm 2%-5%-5% cream 1 g 1 g, topical, 2 times daily, First dose on Sat06/11/25 at 2100 Given06/13/2025 8:59 AM CST1 fJbncp6406/12/2025 8:06 PM CST1 rAxlqf8106/12/2025 9:17 AM CST1 g celecoxib capsule 200 mg (CeleBREX) 200 mg, oral, Daily, First dose (after last modification) on Sat06/12/25 at 0900 06/13/2025 8:58 AM TUW616 inRdigi3506/12/2025 9:18 AM NLU364 mg diclofenac sodium 1 % gel 2 g (Voltaren) 2 g, topical, 4 times daily PRN, pain/discomfort, Starting on Sat06/11/25 at 1753, Do not exceed 32 g per day, over all affected joints. Use dosing card to measure product. 2 g = 2.25 inches, 4 gm =4.5 inches. Rinse dosing card after use and save for each administration. Given06/12/2025 10:24 PM CST2 gZrvqk6206/12/2025 4:27 PM CST2 gOther [address] capsule 60 mg (Cymbalta) 60 mg, oral, Daily, First dose on Sat06/12/25 at 0900, See tube feeding guidelines for tube feeding administration instructions. Given06/13/2025 8:59 AM CST60 xbHpqqu7006/12/2025 9:17 AM CST60 mg enoxaparin injection 40 mg (Lovenox) 40 mg, subcutaneous, Every 24 hours scheduled, First dose on Sat06/11/25 at 1815 Given06/13/2025 8:58 AM CST40 mgRight Upper Arm (Back)Given06/12/2025 9:19 AM CST40 mgLeft Lower PizcmeeSzcus03/14/2025 7:09 PM CST40 mgLeft Upper Arm (Back) iohexoL 300 mg iodine/mL solution 1-200 mL (Omnipaque) 1-200 mL, intravenous, Once in imaging, contrast, Starting on Sat06/11/25 at 0851, For 1 dose, Imaging Protocol Orders, Dose per Radiant Medication Guidelines Given06/11/2025 9:00 AM FEM132 mL lidocaine 5 % 1 patch (Lidoderm) 1 patch, transdermal, Administer over 12 Hours, Once, On Sat06/11/25 at 1440, For 1 dose, Apply tointact skin for a maximum of 12 hours in a 24-hour period. Medication Zdniykc8406/11/2025 2:42 PM CST1 patchLower Back lidocaine 5 % 1 patch (Lidoderm) 1 patch, transdermal, Administer over 12 Hours, Daily, First dose on Sat06/12/25 at 0900, Apply tointact skin for a maximum of 12 hours in a 24-hour period. Medication Jxjjnld6006/13/2025 8:57 AM CST1 patchMid BackMedication Applied 06/12/2025 9:15 AM CST1 patchLower Back morphine injection 4 mg 4 mg, intravenous, Once, On Sat06/11/25 at 0852, For 1 dose Given06/11/2025 10:06 AM CST4 mg naloxone injection 0.2 mg (Narcan) 0.2 mg, intravenous, As needed, respiratory depression, Starting on Sat06/11/25 at 1804, For RASS Score -4 or less, respiratory rate of less than 8 breaths/min. Notify provider/service and rapid response team (if available at institution). ondansetron ODT disintegrating tablet 4 mg (Zofran-ODT) 4 mg, oral, Once, On Sat06/11/25 at 0852, For 1 dose, When splitting ODT at bedside, handle with gloves and a pill splitter to prevent moisture contact. Given06/11/2025 10:05 AM CST4 mg ondansetron ODT disintegrating tablet 4 mg (Zofran-ODT) 4 mg, oral, Every 6 hours PRN, nausea, vomiting, Starting on Sat06/11/25 at 1811, When splitting ODT at bedside, handle with gloves and a pill splitter to prevent moisture contact. oxyCODONE IR tablet 5 mg (Roxicodone) 5 mg, oral, Every 6 hours PRN, severe pain or score 7-10 of 10, Starting on Sat06/11/25 at 1803 Given11/ 9:18 AM CST5 uuWqaga2306/12/2025 3:07 AM CST5 hyNmbze6206/11/2025 7:09 PM CST5 mg polyethylene glycol powder packet 17 g (Miralax) 17 g, oral, Daily PRN, constipation, Starting on Sat06/11/25 at 1752, Ordered sequence of administration: polyethylene glycol, then bisacodyl until BM achieved. Avoid mixing with starch-based thickened liquids. sennosides-docusate sodium 8.6-50 mg per tablet 1 tablet (Senokot-S) 1 tablet, oral, 2 times daily, First dose on Sat06/11/25 at 2100, Do not give if patient has diarrhea. Given06/13/2025 8:58 AM CST1 pylzguNcgek13/15/2025 9:19 AM CST1 tablet sodium chloride (PF) 0.9 % injection 1-100 mL 1-100 mL, intravenous, Once, On Sat06/11/25 at 0852, For 1 dose, Imaging Protocol Orders, Dose perRadiant Medication Guidelines Given06/11/2025 9:00 AM CST35 mL sodium chloride 0.9 % injection 10 mL 10 mL, intravenous, As needed, line care, Starting on Sat06/11/25 at 0826, Peripheral Intravenous Catheter and Rapid Infusion Catheter, prior to blood sampling, post blood transfusion or post blood sampling sodium chloride 0.9 % injection 3 mL 3 mL, intravenous, As needed, line care, Starting on Sat06/11/25 at 0826, Prior to and following infusion and between multiple consecutive infusions: sodium chloride 0.9 % injection sodium chloride 0.9 % injection 3 mL 3 mL, intravenous, Every 12 hours scheduled, First dose on Sat06/11/25 at 0900, Peripheral Intravenous Catheter and Rapid Infusion Catheter, when no infusion to maintain patency Given06/13/2025 9:00 AM CST3 xNBsmsj0506/12/2025 8:06 PM CST3 gNVcumo5506/12/2025 11:29 AM CST3 mLdocumented in this encounter Active and Recently Administered Medications Times are shown in [employer].Medication Order/ acetaminophen tablet 1,000 mg (TylenoL) (COMPLETED) 1,000 mg, oral, Once, On Sat06/11/25 at 1338, For 1 dose * 1340 (Given - Provider: Nika Otto R.N.) acetaminophen tablet 1,000 mg (TylenoL) 1,000 mg, oral, 4 times daily, First dose (after last modification) on 06/12/25 at 1200 * 1142 (Given - Provider: Lisette ChoudhuryS.N., R.N.) * 1626 (Given - Provider: Lisette ChoudhuryS.NTabitha, R.N.) * 2004 (Given - Provider: Wilber Sorensen R.N.) * 0858 (Given - Provider: Lisette ChoudhuryS.N., R.N.) * 1200 (Given - Provider: Lisette ChoudhuryS.NTabitha, R.N.) acetaminophen tablet 650 mg (TylenoL) (CANCELED) 650 mg, oral, 4 times daily, First dose (after last modification) on 06/12/25 at 0800 * 0917 (Given - Provider: Lisette ChoudhuryS.N., R.N.) tghttnbihpwmb-pbpontkvhw-zdkkbcni in Lipoderm 2%-5%-5% cream 1 g 1 g, topical, 2 times daily, First dose on Sat06/11/25 at 2100 * 2038 (Given - Provider: Wilber Sorensen RTabithaN.) * 0917 (Given - Provider: Lisette ChoudhurySTabithaNTabitha, R.N.) * 2005 (Given - Provider: Wilber Sorensen R.N.) * 0859 (Given - Provider: Lisette ChoudhuryS.N., R.N.) celecoxib capsule 200 mg (CeleBREX) 200 mg, oral, Daily, First dose (after last modification) on 06/12/25 at 0900 * 0918 (Given - Provider: Tavon Choudhury.S.N., R.N.) * 0858 (Given - Provider: Lisette ChoudhuryS.NTabitha, R.N.) DULoxetine DR capsule 60 mg (Cymbalta) 60 mg, oral, Daily, First dose on Sat06/12/25 at 0900, See tube feeding guidelines for tube feeding administration instructions. * 0917 (Given - Provider: Rosemary Choudhury, R.N.) * 0859 (Given - Provider: Rosemary Choudhury, R.N.) enoxaparin injection 40 mg (Lovenox) 40 mg, subcutaneous, Every 24 hours scheduled, First dose on Sat06/11/25 at 1815 * 1909 (Given - Provider: uNry Simpson R.N.) * 0919 (Given - Provider: Sarita Peralta M.S.Jessika, R.N.) * 0858 (Given - Provider: Rosemary Choudhury, R.N.) lidocaine 5 % 1 patch (Lidoderm) (COMPLETED) 1 patch, transdermal, Administer over 12 Hours, Once, On Sat06/11/25 at 1440, For 1 dose, Apply tointact skin for a maximum of 12 hours in a 24-hour period. * 1442 (Medication Applied - Provider: Gwendolyn Aparicio R.N.) * 0257 (Medication Removed - Provider: Wilber Sorensen RGracie) lidocaine 5 % 1 patch (Lidoderm) 1 patch, transdermal, Administer over 12 Hours, Daily, First dose on Sat06/12/25 at 0900, Apply tointact skin for a maximum of 12 hours in a 24-hour period. * 0915 (Medication Applied - Provider: Lisette ChoudhurySGracie, R.N.) * 2115 (Medication Removed - Provider: Wilber Sorensen RChrist.) * 0857 (Medication Applied - Provider: Rosemary Choudhury, R.N.) * 1333 (Due: Medication Removed - Provider: Discharge Provider, Automatic - Comment: Time automatically adjusted from order being discontinued) lidocaine HCL 2 % topical jelly 1 Application (Glydo) 1 Application, topical, Once, On Sat06/11/25 at 1223, For 1 dose, Apply urethral or topical for prevention and control of pain in procedures involving the male and female urethra or other indicated catheterization. * 1223 (Due) morphine injection 4 mg (COMPLETED) 4 mg, intravenous, Once, On Sat06/11/25 at 0852, For 1 dose * 1006 (Given - Provider: Tavon Ruiz.S.N., R.N.) ondansetron ODT disintegrating tablet 4 mg (Zofran-ODT) (COMPLETED) 4 mg, oral, Once, On Sat06/11/25 at 0852, For 1 dose, When splitting ODT at bedside, handle with gloves and a pill splitter to prevent moisture contact. * 1005 (Given - Provider: Tavon Ruiz.S.N., R.N.) ondansetron ODT disintegrating tablet 4 mg (Zofran-ODT) 4 mg, oral, Once, On Sat06/11/25 at 1338, For 1 dose, When splitting ODT at bedside, handle with gloves and a pill splitter to prevent moisture contact. * 1338 (Due) sennosides-docusate sodium 8.6-50 mg per tablet 1 tablet (Senokot-S) 1 tablet, oral, 2 times daily, First dose on Sat06/11/25 at 2100, Do not give if patient has diarrhea. * 2036 (Not Given - Provider: Wilber Sorensen RTabithaN. - Reason: Patient/family refused) * 09 (Given - Provider: Lisette ChoudhuryS.N., R.N.) * 2005 (Not Given - Provider: Wilber Sorensen RChrist. - Reason: Patient/family refused) * 0858 (Given - Provider: Lisette ChoudhuryS.N., R.N.) sodium chloride (PF) 0.9 % injection 1-100 mL (COMPLETED) 1-100 mL, intravenous, Once, On Sat06/11/25 at 0852, For 1 dose, Imaging Protocol Orders, Dose perRadiant Medication Guidelines * 0900 (Given - Provider: Marina Pedro R.N.) sodium chloride 0.9 % injection 3 mL 3 mL, intravenous, Every 12 hours scheduled, First dose on Sat06/11/25 at 0900, Peripheral Intravenous Catheter and Rapid Infusion Catheter, when no infusion to maintain patency * 0900 (Due) * 2035 (Given - Provider: Wilber Sorensen R.N.) * 1129 (Given - Provider: Rosemary Choudhury, R.N.) * 2005 (Given - Provider: Wilber Sorensen R.N.) * 0900 (Given - Provider: Rosemary Choudhury, R.N.) Medication Order06/11/20240729// diclofenac sodium 1 % gel 2 g (Voltaren) 2 g, topical, 4 times daily PRN, pain/discomfort, Starting on Sat06/11/25 at 1753, Do not exceed 32 g per day, over all affected joints. Use dosing card to measure product. 2 g = 2.25 inches, 4 gm =4.5 inches. Rinse dosing card after use and save for each administration. * 1627 (Given - Provider: Rosemary Choudhury, R.N. - Comment: knees) * 2224 (Given - Provider: Wilber Sorensen R.N.) iohexoL 300 mg iodine/mL solution 1-200 mL (Omnipaque) (COMPLETED) 1-200 mL, intravenous, Once in imaging, contrast, Starting on Sat06/11/25 at 0851, For 1 dose, Imaging Protocol Orders, Dose per Radiant Medication Guidelines * 0900 (Given - Provider: Marina Pedro R.N.) naloxone injection 0.2 mg (Narcan) 0.2 mg, intravenous, As needed, respiratory depression, Starting on Sat06/11/25 at 1804, For RASS Score -4 or less, respiratory rate of less than 8 breaths/min. Notify provider/service and rapid response team (if available at institution). ondansetron ODT disintegrating tablet 4 mg (Zofran-ODT) 4 mg, oral, Every 6 hours PRN, nausea, vomiting, Starting on Sat06/11/25 at 1811, When splitting ODT at bedside, handle with gloves and a pill splitter to prevent moisture contact. * 0921 (Not Given - Provider: Rosemary Choudhury, R.N. - Reason: Patient/family refused) oxyCODONE IR tablet 5 mg (Roxicodone) (CANCELED)(Linked Group 1) 5 mg, oral, Every 6 hours PRN, severe pain or score 7-10 of 10, Starting on Sat06/11/25 at 1803 * 1909 (Given - Provider: Nury Simpson RGracie) * 0307 (Given - Provider: Wilber Sorensen RTabithaNTabitha) * 0918 (Given - Provider: Rosemary Choudhury, R.N.) polyethylene glycol powder packet 17 g (Miralax) 17 g, oral, Daily PRN, constipation, Starting on Sat06/11/25 at 1752, Ordered sequence of administration: polyethylene glycol, then bisacodyl until BM achieved. Avoid mixing with starch-based thickened liquids. sodium chloride 0.9 % injection 10 mL 10 mL, intravenous, As needed, line care, Starting on Sat06/11/25 at 0826, Peripheral Intravenous Catheter and Rapid Infusion Catheter, prior to blood sampling, post blood transfusion or post blood sampling sodium chloride 0.9 % injection 3 mL 3 mL, intravenous, As needed, line care, Starting on Sat06/11/25 at 0826, Prior to and following infusion and between multiple consecutive infusions: sodium chloride 0.9 % injection Order Group 1: oxyCODONE IR tablet 2.5 mg (Roxicodone) (CANCELED) 2.5 mg, oral, Every 4 hours PRN, moderate pain or score 4-6 of 10, breakthrough pain, Starting on Sat06/11/25 at 1803 Or oxyCODONE IR tablet 5 mg (Roxicodone) (CANCELED)Jump to med 5 mg, oral, Every 6 hours PRN, severe pain or score 7-10 of 10, Starting on Sat06/11/25 at 1803 documented in this encounter Care Teams Team MemberRelationshipSpecialtyStart DateEnd Date Elsewhere, Pcp PCP - GeneralInternal Yjprzpgt57/14/25documented as of this encounter
--- OUTSIDE RECORDS SUMMARY | 2025-07-20 19:17 | XMS_ITS | Encounter Summary ---
Author Organization [facility] Address [address] [place] [address] Care Team Providers Care Marketing Forecaster Name Role Phone Elsewhere, Pcp Primary Care Provider Unavailabl e Reason for Referral * Outpatient (Routine) - AuthorizedSpecialtyDiagnoses / ProceduresReferred By ContactReferred To Contact Diagnoses Vertigo Procedures Audio-Vestibular Balance evaluation Marina Galindo M.D., M.P.H. 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 [address] [place] [phone] Appt Request Social History Tobacco UseTypesPacks/DayYears UsedDateSmoking Tobacco: FormerCigarettes [...] RecordedIn the past 12 months has the [employer], gas, oil, or water [employer] threatened to shut off services in your home?No06/11/2025Housing StabilityAnswerDate RecordedWhat is your living situation today?I have a steady place to live06/11/2025Education AnswerDate RecordedWhat is the highest level of school you have completed or the highest degree you have received?12th grade2CommentsNoSex and Gender InformationValueDate RecordedSex Assigned at TsbjdHaobos19/25/2024 2:54 PM CSTLegal DqyApyqha38/03/2017 4:06 AM CSTGender NblcurczUzlebg99/25/2024 2:54 PM CSTSexual EzrqqosulxyDzirxzuf11/25/2024 2:54 PM CSTdocumented as of this encounter Plan of Treatment Not on file documented as of this encounter Visit Diagnoses Diagnosis Vertigo- Primary documented in this encounter Care Teams Team MemberRelationshipSpecialtyStart DateEnd Date Elsewhere, Pcp PCP - GeneralInternal Bfwofnzq83/14/25documented as of this encounter
--- OUTSIDE RECORDS SUMMARY | 2025-07-20 19:17 | XMS_ITS | Encounter Summary ---
Author Organization [facility] Address [address] [place] [address] Care Team Providers Care Cattyman Name Role Phone Elsewhere, Pcp Primary Care Provider Unavailabl e Reason for Visit * ReasonOnset DateCommentsAppt Bqfhztc1906/14/2025 Encounter Details DateTypeDepartmentCare Team (Latest Contact Info)Cacpyjurlma92/17/2025linical Communication RST HIM [address] [place] [address] Marina Galindo M.D., M.P.H. [address] [place] [phone] Appt Request Social History Tobacco UseTypesPacks/DayYears UsedDateSmoking [...] RecordedIn the past 12 months has the electric, gas, oil, or water company threatened to shut off services in your home?No06/11/2025Housing StabilityAnswerDate RecordedWhat is your living situation today?I have a steady place to live06/11/2025Education AnswerDate RecordedWhat is the highest level of school you have completed or the highest degree you have received?12th grade08/17/2021CommentsNoSex and Gender InformationValueDate RecordedSex Assigned at BcipgAccsti41/25/2024 2:54 PM CSTLegal CbkXxlqwe18/03/2017 4:06 AM CSTGender TzpzzvtqAtebta43/25/2024 2:54 PM CSTSexual QsflroceeoiVptleidw20/25/2024 2:54 PM CSTdocumented as of this encounter Plan of Treatment Not on file documented as of this encounter Visit Diagnoses Diagnosis Vertigo- Primary documented in this encounter Care Teams Team MemberRelationshipSpecialtyStart DateEnd Date Elsewhere, Pcp PCP - GeneralInternal Nfdhhdsc21/14/25documented as of this encounter
--- OUTSIDE RECORDS SUMMARY | 2025-07-20 19:17 | XMS_ITS | Data Portability ---
Author Organization [place] [facility] Address [address] [place] [address] Assessment No assessment recorded. Plan of Treatment Reminders Order DateSubmit DateProviderLast Modified ByOrganization DetailsLast Modified TimeDetailsAppointmentsNone recorded.LabNone recorded.ReferralNone recorded. Procedurescyst aspiration (PROC) - by Radiology. Send fluid for Cytology to detect any cancer cells.[facility], [address], [place], [address], 07/12/2020 16:07:16 SurgeriesNone recorded.ImagingNone recorded.Medication OrdersNone recorded. Patient TargetsNo targets recorded. Patient InstructionsNo instructions recorded. Reason for Referral None Reported. Results Created Date Observation Date Name Description Value Unit Range Abnormal Flag Note LastModifiedBy Organization Detail LastModifiedTime 01/24/2021 01/17/2021 US, renal No observation recorded.rbdkttczk23Egn Vijqffvyj12/29/2021 17:43:[address]001/25/2021T, abdomen + pelvis, w/ contrastNo observation recorded.rgeibNot Available 01/25/2021 18:49:3107/imaging/diagnostic resultNo observation recorded.baesz1Crn Siappngzu63/20/2021 12:47:47 Result Notes None recorded. Medical Equipment None Reported. Allergies No known drug allergies Medications Name Sig Start Date Stop Date Status Note LastModified by Organization Details LastModified Time doxycycline hyclate 100 mg capsule TAKE ONE CAPSULE BY MOUTH TWICE DAILY for 10 days activeNot AvailableNot AvailableNot Availableibuprofen 800 mg tabletactiveNot AvailableNot AvailableNot Availableprednisone 20 mg tabletTAKE 2 TABLETS BY MOUTH ONCE DAILY FOR 4 DAYS, THEN TAKE 1 TABLET ONCE DAILY FOR 4 DAYS, THEN TAKE 1/2 TABLET ONCE DAILY FOR 4 DAYS.activeNot AvailableNot AvailableNot Available sertraline 100 mg tabletTAKE ONE TABLET BY MOUTH ONE TIME DAILYactiveNot AvailableNot AvailableNot Availabletramadol 50 mg tabletTAKE ONE TABLET BY MOUTH EVERY SIX HOURS NEEDEDactiveNot AvailableNot AvailableNot Availableketorolac 10 mg tabletTAKE ONE TABLET BY MOUTH THREE TIMES DAILY NEEDEDactiveNot AvailableNot AvailableNot Availableprednisolone acetate 1 % eye drops,suspension place 1 drop into both eyes by ophthalmic route every 2 hours for 3 days, then decrease to every 4 hours for 3 days, then four times daily uactiveNot Available Not AvailableNot Availablehydrocodone 7.5 mg-acetaminophen 325 mg tabletTake 1 tablet by mouth once as neededactiveNot AvailableNot AvailableNot Available misoprostol 200 mcg tabletINSERT 2 TABLETS BY VAGINAL ROUTE THE NIGHT BEFORE PROCEDURE.activeNot AvailableNot AvailableNot Availableoxybutynin chloride ER 5 mg tablet,extended release 24 hrTake 1 Tablet (5 mg) by mouth once dailyactive Not AvailableNot AvailableNot Availablediclofenac sodium 75 mg tablet,delayed releaseTAKE ONE TABLET BY MOUTH TWICE DAILYactiveNot AvailableNot AvailableNot Availablezolpidem 5 mg tabletTAKE ONE TABLET BY MOUTH ONE TIME DAILY AT BEDTIME NEEDED FOR SLEEPactiveNot AvailableNot AvailableNot Availableibuprofen 600 mg tabletTAKE ONE TABLET BY MOUTH EVERY SIX HOURS NEEDEDactiveNot AvailableNot AvailableNot Availablecefdinir 300 mg capsuleTAKE ONE CAPSULE BY MOUTH TWICE DAILY FOR 10 DAYS1completedNot AvailableNot AvailableNot Available spironolactone 50 mg tabletTAKE ONE TABLET BY MOUTH TWICE DAILYactiveNot AvailableNot AvailableNot Availablediazepam 5 mg tablettake 1 tablet by mouth for 1 dose.activeNot AvailableNot AvailableNot Availableoxycodone 5 mg tablet TAKE ONE TABLET BY MOUTH EVERY FOUR HOURS NEEDED FOR PAIN. MAX OF 6 TABLETS PER DAY.activeNot AvailableNot AvailableNot Availableclindamycin 1 % lotionApply 1 application topically 2 (two) times a day for face and chestactiveNot AvailableNot AvailableNot Availableduloxetine 30 mg capsule,delayed release activeNot AvailableNot AvailableNot Availableduloxetine 60 mg capsule,delayed releaseactiveNot AvailableNot AvailableNot Available Vitals Date Recorded Body height Body mass index (BMI) Body weight Respiratory rate Provider Name and Address Organization Details Last Updated DateTime 01/25/2021 165.1 cm 26.6 kg/m2 96101.78 g 16 /min Eloise Velasco [facility] 01/25/2021 17:33:28 Social History None recorded. Functional Status Question Answer Note LastModified by Organization D etails LastModified Time Do you or have you ever used smokeless tobacco? Never used smokeless tobacco gbvfoht0Mgogcbnpewq not xoxmvxkpe16/30/2021o you or have you ever used e- cigarettes or vape?Never used electronic gljbenjnqtvynlpww1Jubknsomozf not nuhovhmqm29/30/2021 Mental Status None recorded. Family History Nothing [...] Codes Diagnosis Note [id number] Chuckie Lindsay MD [place] [id number] [place] [address],[facility] [address] [place] [address] 01/25/2021 16:26:25 01/26/2021 08:32:50 Complex renal cyst [id number] N28.1 This is a complicated. situation and I do want to make sure we make the right decision.Will start with aspiration of the renal cyst by Radiology with the fluid being sent for cytology. This will test for cancer cells. Decompressing the cyst will also be a test as to weather she feels better. Health Concerns Section Related Observation LastModified by Organization Detai ls LastModified Time None Recorded Concern Status LastModified by Organization Details LastModified Time None Recorded Advance Directives Directive None Recorded Payers Insurance Date Sequence Insurance Name Policy Number Policy Bates Covered Member ID Bates Member ID Guarantor Name 02/01/2021 1 [place]AC[place] - HMO) [id number] Dorothy Wilder [id number] Dorothy Wilder Notes Date Note Type Note Provider Name and Address Savanah guillen Details Recorded Time 01/25/2021 text/html She is having sharp and constant pains in her back. She also has urinary urgency and nocturia. As part of this work up she's had an MRI, ultrasound and CT scan. These have confiremd a large, mostly benign appearing right lower pole renal cyst. She came with her , which was quite helpful.JES[place] Dqohcaf6401/25/2021 18:49:45 OBGyn Episode No OBEpisode recorded.
--- OUTSIDE RECORDS SUMMARY | 2025-07-20 19:17 | XMS_ITS | Clinical Summary ---
Author Organization [facility] Address [address] [place] [address] Care Team Providers Care Building Construction Foreman Name Role Phone John Singh MD Primary Care Provider + Allergies No known active allergies Medications MedicationSigDispense QuantityRefillsLast FilledStart DateEnd DateStatus clindamycin 1% (CLEOCIN-T) 1 % gel Indications:Acne, unspecified acne typeApply topically to affected area(s) 2 times daily. 60 g 11008/09/2017Active doxycycline monohydrate (MONODOX) 100 mg capsule Indications:Cough,FolliculitisOne twice daily x ten days then one oral every day x ten days 30 capsule 10/03/2018Active LORazepam (ATIVAN) 1 mg tablet Indications:Anxiety and depressionTake 1 tablet by mouth every 6 hours if needed for Anxiety. 15 tablet 10/04/2018Active sertraline (ZOLOFT) 100 mg tablet Indications:Anxiety and depressionTAKE ONE TABLET BY MOUTH EVERY DAY IN THE MORNING. 30 tablet Active oxybutynin XL (DITROPAN XL) 5 mg CR tablet Indications:Urinary frequencyTake 1 Tablet (5 mg) by mouth once daily. 30 Tablet 1ActiveHospital, Clinic, or Other Facility Administered Medication Ordered DoseRouteFrequencyStart DateEnd DateStatus NaCl 0.9% Indications:Zzzjjksq2456 mL/maSNCGOQQMKIZK81/15/2015ctive Active Problems ProblemNoted DateDiagnosed DateHLA-B27 /26/2016Occipital kkdxtaxdz99/16/2012 Overview (08/13/2011): Recent diagnosis; agreed upon by Neurology 08/13/2011 Okrthtxr68/05/2012 Resolved Problems ProblemNoted DateDiagnosed DateResolved IvckZtqzlahud73 Caxkdwsdi82 Overview (06/12/2017): Estimated Date of Delivery: 02/04/18 [...] <6.4 % Past Medical History: Diagnosis Date ??? Acne Sees Dr. Abel for it ??? Encounter for supervision of other normal , first trimester 06/06/2017 ??? LGSIL (low grade squamous intraepithelial dysplasia) 10/01 ??? Low back pain L4-5 issues, seeing neurologist for this ??? Migraine 08/02/2011 Past Surgical History: Procedure Laterality Date ??? SECTION 2011 ??? COLPOSCOPY 2005 JEFFERSON II-III, yearly paps recommended until 2025 ??? LEEP PROCEDURE 2006 No data on file. 2nd Problems (from 06/06/17 to present) No problems associated with this episode. Eliz Esqueda RNC.....06/12/2017 8:51 AM Encounter for supervision of other normal , first txqswdszo20/09/2017 10/16/2018Supervision of normal first hazdbrfnt74 Overview (12/07/2011): It's a boy Chronic back/leg pain Abnormal Quad screen, level 2 ultrasound reassuring. Immunizations ImmunizationAdministration DatesNext KapEKH3310/31/1983,04/06/1981,1978, 1978,1978Hepatitis B (Adult)03/04/1997Hepatitis B (Peds)12/05/2010 Influenza A (H1N1), Qtyysfrwcsq60/04/2010Influenza A (H1N1), Inactivated (Age >=3 Years)09/29/2009Influenza Virus, Cpaivucxmqn28/21/2012Influenza, IIV3 (Age 6-35 mos)04/18/2012,09/29/2009Influenza, IIV3 (Age >=3 years)04/25/2011, 09/29/2009MMR03/13/1994,06/20/1979Oral Polio Aartfjq8210/31/1983,04/06/1981, 1978,1978TD, TUERVVFEIJB77/04/2010Td (Age >=7 Years)03/13/1994Tdap 09/29/2009Tuberculin (PPD)03/04/1997 Family History Medical HistoryRelationNameCommentsHeart DiseaseFatherMI-45 triple bypassCancer Maternal GrandfatherCancer-prostateMaternal GrandfatherCancer-breastMaternal GrandmotherHypertensionMaternal GrandmotherCancerPaternal Grandfather liver,lung,throatCancer-prostatePaternal GrandfatherDiabetesPaternal Grandmother RelationNameStatusCommentsBrotherAliveFatherAliveMaternal GrandfatherDeceased Maternal GrandmotherAliveMotherAlivePaternal GrandfatherDeceasedPaternal GrandmotherDeceased Social History Tobacco UseTypesPacks/DayYears UsedDateSmoking Tobacco: FormerCigarettes Smokeless Tobacco: Never Tobacco Cessation:Counseling Given: Yes Alcohol UseStandard Drinks/WeekCommentsNo0 (1 standard drink = 0.6 oz pure alcohol)PHQ-2AnswerDate RecordedPHQ-2 Tjdcw925CommentsNoSex and Gender InformationValueDate RecordedSex Assigned at BirthNot on fileLegal Sex Voxnws1608/11/2012 5:23 AM CSTGender IdentityNot on fileSexual OrientationNot on fileOccupationIndustryJob Start DateJob End DateSenior ExecNot on fileNot on fileNot on file Obstetrics History GravidaParaTermPretermABIABSABEctopicMultipleLivingLive Bzjmso1629419ZjdfScpepfj GATotal LaborLabor/2nd/5xxFoxwxpWeaGociArqrHAIMnbV0R6BrckHvcp1834THXEjebp Comments:miscarried at 12 weeks04/04/20120871Fudp40q6w9.71 kg (8 lb 3 oz)MCS-LTranv EpiduralNComplications:Shoulder DystociaBirth Comments:System Generated. Please review and update details. Last Filed Vital Signs Vital SignReadingTime TakenCommentsBlood Tsjivwcs702/8407 2:15 PM CDT Wefzm2594 2:15 PM XDNIqhpzsvprjy17.3 ??C (99.1 ??F)10/16/2018 8:44 AM CDTRespiratory Rlkp791102/13/2021 2:15 PM CDTOxygen Ovzmkkutol24%02/13/2021 2:15 PM CDTInhaled Oxygen Concentration--Kzkzyy57.4 kg (194 lb 12.8 oz)01/09/2021 1:29 PM EGPGmacve679 cm (5' 5.35)10/16/2018 8:44 AM CDTBody Mass Index32.07 10/16/2018 8:44 AM CDT Plan of Treatment Health MaintenanceDue DateLast DoneCommentsHepatitis B series for 19+ (2 of 3 - 19+ 3-dose series), 03/04/1997Tetanus oqvpzjc9409/30/2019 09/29/2009, 09/29/2009, 03/13/1994BMI (ht and wt on same day) for age 18+ , 10/04/2018, 10/03/2018, Additional history exists Depression screening for age 12+, 10/16/2018, 10/06/2018, Additional history existsColonoscopy through age [address]002/17/2023Lipids for age 45-Mammogram for age 40-ap test for age 21-12/05/2020, 12/05/2020, 07/23/2016, Additional history existsCOVID-19 vaccine series ( season)2025Influenza Vaccine (#1)5004/18/2012, 04/18/2012, 04/25/2011, Additional history existsHepatitis C screening for age 18-58Rtkliaxiy82/15/2012, 09/29/2009HIV for age 15-01Hdzmiopot99/09/2017, 09/12/2011, 09/29/2009Pneumococcal series for age 6-49Aged OutNo longer eligible based on patient's age to complete this topic Procedures Procedure NamePriorityDate/TimeAssociated DiagnosisCommentsGYN THIN PREP PAP SCREEN KUAFXBPubmmgw59/10/2021 12:00 PM CDT ANTI HIV 1/5Iwknqjs36/09/2017 6:01 PM PENCIL SORTER Encounter for supervision of other normal , first trimester (HC) ANTI POJIbqmbnx33/15/2012 11:28 AM PENCIL SORTER Supervision of normal first (HC) from Last 3 Months or Most Recently Relevant to Health Maintenance Results * MEAL COOKER THIN PREP PAP SCREEN IMAGED (12/05/2020 12:00 PM CDT)ComponentValueRef RangeTest MethodAnalysis TimePerformed AtPathologist SignatureCase Report Gynecologic Cytology Report ? Case: [id number] ? Authorizing Provider: ??Sandra Harrison ??Collected: ? 12/05/2020 1200 ? M, MD ? Ordering Location: ? [facility] ?Received: ?12/07/2020 1007 ? First Screen: ?Kenrick Ascencio ? Specimen: ?MEAL COOKER ThinPrep Vial Screening, Cervical/Vaginal ? 12/15/2020 1:17 PM [facility] INTERPRETATION/RESULTNEGATIVE FOR INTRAEPITHELIAL LESION OR MALIGNANCY (NIL) (none)12/15/2020 1:17 PM [facility] at 1317 CDTSPECIMEN ADEQUACYSatisnaval hospital [place] for evaluation No endocervical component seen12/15/2020 1:17 PM [facility]ORATORYHPV REQUESTHPV and PAP12/15/2020 1:17 PM [facility] LABORATORYDate of LMP12/15/2020 1:17 PM [facility] LABORATORYComment:AblationLast Pap Date07/23/ 1:17 PM [facility]OR[facility]ORYLast Pap ResultNIL 12/15/2020 1:17 PM [facility]ORATORYComment:Neg hpv Additional Btjrevfcfcb30/20/2021 1:17 PM [facility] LABORATORYComment: Interpreted at [facility] - [address] [address] Automated NxlkwjEhevtqhpxu78/20/2021 1:17 PM [facility] LABORATORYComment:Specimen processed successfully by automated newspaper distributor supervisor device, ThinPrep Imaging System, [facility]ANCILLARY TESTING GYNHPV Ordered, Please see separate xepqrf5312/15/2020 1:17 PM [facility] LABORATORYNoteThe pap test is a screening technique, not a diagnostic procedure. It is used primarily to screen for squamous cancers and precursor lesions. Published studies have shown that it is subject to both false negative and false positive results. The pap test should not be used as the sole means to diagnose or exclude pre-malignant and malignant lesions.12/15/2020 1:17 PM CDTALDAVIS [facility]ENTERCENTRAL LABORATORYSpecimen (Source)Anatomical Location / LateralityCollection Method / VolumeCollection TimeReceived TimeOther (Cervical/Vaginal)12/05/2020 12:00 PM CDT12/07/2020 10:07 AM CDT Narrative Authorizing ProviderResult TypeResult StatusSandra Harrison MD PATHOLOGY/CYTOLOGYFinal ResultPerforming OrganizationAddressCity/State/ZIP Code Phone Number [facility] [address] [place] [address], [place] * ANTI HIV 1/2 (06/06/2017 6:01 PM PENCIL SORTER)ComponentValueRef RangeTest Method Analysis TimePerformed AtPathologist SignatureHIV-1/HIV-2 ANTIBODYNon-Reactive Non-Cnexfuvc83/10/2017 1:44 PM [facility]ST[facility] Specimen (Source)Anatomical Location / LateralityCollection Method / Volume Collection TimeReceived TimeBloodBLOOD SPECIMEN / UnknownVenipuncture / Gntkkvn4206/06/2017 6:01 PM CST06/06/2017 6:01 PM PENCIL SORTER Narrative [facility] - 06/07/2017 1:44 PM PENCIL SORTER HIV-1 p24 and HIV-1/HIV-2 Ab not detected Authorizing ProviderResult TypeResult StatusErin Merida NPSEND OUTSFinal ResultPerforming OrganizationAddressCity/State/ZIP CodePhone Number [facility] [address] [place] [address], [place] * ANTI HCV (09/12/2011 11:28 AM PENCIL SORTER)ComponentValueRef RangeTest MethodAnalysis TimePerformed AtPathologist SignatureANTI HCVNon-reactiveABBOHENNEPIN COUNTY MEDICAL CENTERpecimen (Source)Anatomical Location / LateralityCollection Method / VolumeCollection TimeReceived TimeBlood specimen (specimen)BLOOD SPECIMEN / Tfrbykz9909/12/2011 11:28 AM CST09/12/2011 11:20 AM PENCIL SORTER Narrative Authorizing ProviderResult TypeResult StatusBridgekinga Rico PASLILIANA OUTS Final ResultPerforming OrganizationAddressCity/State/ZIP CodePhone Number [facility] INTERNAL ZIP [phone] [address] from Last 3 Months or Most Recently Relevant to Health Maintenance Insurance Care Teams Team MemberRelationshipSpecialtyStart DateEnd Date John Singh MD [address] [place] [address] PCP - GeneralFamily Practice01/09/21
--- OUTSIDE RECORDS SUMMARY | 2025-07-20 19:18 | XMS_ITS | Clinical Summary ---
Author Organization [place] Address [address] [place] [address] Care Team Providers Care Research Technologist Name Role Phone [facility] [place] Primary Care Provider Allergies No known active allergies Medications MedicationSigDispense QuantityRefillsLast FilledStart DateEnd DateStatus prednisoLONE acetate (PRED FORTE) 1 % ophthalmic susp Indications:IritisPlace 1 drop into both eyes 4 times dailyActive oxyCODONE IR (ROXICODONE) 5 MG tablet Indications:S/P sectionTake 1 tablet (5 mg) by mouth every 4 hours as needed for moderate to severe pain 30 tablet 12/27/2017Active senna-docusate (SENOKOT-S;PERICOLACE) 8.6-50 MG per tablet Indications:S/P sectionTake 1 tablet by mouth 2 times daily as needed for constipation 30 tablet 12/27/2017Active Active Problems ProblemNoted DateDiagnosed DateS/P vnkilmp3512/27/2017Postpartum care and iptmuimmpqr66/30/2018Indication for care in labor or djomyvhi73/29/2018 Immunizations ImmunizationAdministration DatesNext DueInfluenza (intradermal)04/18/2012Tdap (Adult) Unspecified Pzbhvrgrvkp62/04/2010 Social History Tobacco UseTypesPacks/DayYears UsedDateSmoking Tobacco: Some DaysSmokeless Tobacco: NeverAlcohol UseStandard Drinks/WeekCommentsNo0 (1 standard drink = 0.6 oz pure alcohol)CommentsNoSex and Gender InformationValueDate Recorded Sex Assigned at BirthNot on fileLegal HbuXyddrf33/04/2012 3:19 AM CSTGender IdentityNot on fileSexual OrientationNot on file Last Filed Vital Signs Vital SignReadingTime TakenCommentsBlood Pnhykjtr395/7906 8:06 AM CDT Zwapb370712/27/2017 8:06 AM NYUGzlaarzjrjh48.7 ??C (98 ??F)12/27/2017 8:06 AM CDT Respiratory Lygz843812/27/2017 11:25 AM CDTOxygen Posiajqphs03%12/26/2017 12:18 AM CDTInhaled Oxygen Concentration--Zxnpru72.3 kg (188 lb)12/24/2017 10:39 PM CDT Kgcbhn778.6 cm (5' 6)12/24/2017 10:39 PM CDTBody Mass Index30.34012/24/2017 10:39 PM CDT Plan of Treatment Not on file Care Teams Team MemberRelationshipSpecialtyStart DateEnd [facility], [address] [address] PCP - General12/25/17
--- OUTSIDE RECORDS SUMMARY | 2025-07-20 19:18 | XMS_ITS | Clinical Summary ---
Author Organization [facility] Address [address] [place] [address] Care Team Providers Care Payroll Officer Name Role Phone Elsewhere, Pcp Primary Care Provider Unavailabl e Source Comments Patient records contain information from all sites at [facility]. For routine questions regarding patient records, call [phone] during business hours, M-F 8:00 AM - 5:00 PM Central Time. Record requests for emergency care only can be directed to [phone] at any time.[facility] Allergies No known active allergies Medications MedicationSigDispense QuantityRefillsLast FilledStart DateEnd DateStatus prednisoLONE acetate (PRED FORTE) 1 % ophthalmic suspension Administer 1 drop into affected eye(s) as needed.04/28/2013ctive DULoxetine (CYMBALTA) [address] capsule Take 60 mg by mouth daily.03/24/2021ctive celecoxib (CeleBREX) 200 mg capsule Take 200 mg by mouth 2 (two) times a day.4Active Active Problems ProblemNoted DateDiagnosed XekbOuibbyi87/16/2025 Overview (06/13/2025): Patient had episode of vertigo that contributed to fall Dry Eye Syndrome Bxajoxkdg44/19/2021cleritis Anterior Tvnctsxrs78/19/2021 Ukftumkcodsh06/07/2021Myofascial Pain Kdttcjsz78/09/2021pondyloarthropathy Human Leukocyte Antigens B2710/04/2020Uveitis Anterior Chronic Bilateral 10/04/2020ash Face10/04/2020 Resolved Problems ProblemNoted DateDiagnosed DateResolved DateConcussion No Loss Of Consciousness Cnzsjkksmm20 Encounters DateTypeDepartmentCare LdptXsfrqbnnqyz05/17/2025linical Communication [facility] [address] [place] [address] Marina Galindo M.D., M.P.H. Appt Aigzdos3506/14/2025linical Communication [facility] [address] [place] [address] Marina Galindo M.D., M.P.H. Appt Kcyuwlo1806/11/2025 7:19 AM MANAGEMENT PROFESSOR - 06/13/2025 1:33 PM CSTHospital Encounter [facility], [facility], [facility], Third Floor [address] [place] [phone] Kenrick Camara M.D. Shiue, Larissa T, M.D. Concussion No Loss Of Consciousness Subsequent (Primary Dx); Dizziness; Debility; Myofascial Pain Syndrome; Decline Functional Status [R53.81] Discharge Disposition: Home or Self Care06/11/2025 1:46 AM MANAGEMENT PROFESSOR - 06/11/2025 6:32 AM CSTEmergency [facility] Emergency Department [address] [place] [phone] Discharge Disposition: Left Against Medical Advice or Discontinued Carefrom Last 3 Months Social History Tobacco UseTypesPacks/DayYears UsedDateSmoking Tobacco: FormerCigarettes [...] RecordedIn the past 12 months has the [employer], gas, oil, or water company threatened to shut off services in your home?No06/11/2025Housing StabilityAnswerDate RecordedWhat is your living situation today?I have a steady place to live06/11/2025Education AnswerDate RecordedWhat is the highest level of school you have completed or the highest degree you have received?12th grade2CommentsNoSex and Gender InformationValueDate RecordedSex Assigned at MuahxRdenlv15/25/2024 2:54 PM CSTLegal PvfAyzboh32/03/2017 4:06 AM CSTGender LxbafaipZnalzn97/25/2024 2:54 PM CSTSexual WmrbssyplxmOjpqcqur82/25/2024 2:54 PM MANAGEMENT PROFESSOR Last Filed Vital Signs Vital SignReadingTime TakenCommentsBlood Nqavjasa265/7106/13/2025 12:39 PM MANAGEMENT PROFESSOR Frptt054206/13/2025 12:39 PM ZIWJulxucfyvgr93.4 ??C (97.5 ??F)06/13/2025 12:39 PM CSTRespiratory Sovo649108/13/2024 12:39 PM CSTOxygen Ebcrxvwpcu60%06/13/2025 12:39 PM CSTInhaled Oxygen Concentration--Vxtcpf96 kg (169 lb 12.1 oz)06/13/2025 10:55 AM MAAHziyrd052.1 cm (5' 5)06/13/2025 10:55 AM CSTBody Mass Index28.25 06/13/2025 10:55 AM MANAGEMENT PROFESSOR Plan of Treatment Health MaintenanceDue DateLast DoneCommentsCT Jwgpvybhpqty1978Cologuard 1978 0597Yjosozpbamk1978Colorectal Cancer Poubkhfob1978FIT 1978HIV Fhgtnsnze1978Hepatitis C Atechpnrx1978Lipid (Cholesterol) Ojhvtdwtw13/23/3802Mduovermh1978Hepatitis B Vaccines (2 of 3 - 19+ 3-dose series), 03/04/1997Cervical/Vaginal Cancer Wrdmcypoo06epression Screening (Annual PHQ-2)07/29/2024OVID- 19 Vaccine (2024- season)2025Influenza Vaccine (#1)2025 09/12/2017, 04/18/2012, 04/25/2011, Additional history existsDTaP,Tdap,and Td Vaccines (8 - Td or Tdap)8012/05/2017, 09/29/2009, 09/29/2009, Additional history existsFasting Glucose for Diabetes Mkvvvjjcg85/16/2028 06/13/2025, 06/12/2025, 06/11/2025, Additional history existsIPV VaccinesAged OutNo longer eligible based on patient's age to complete this topicPneumococcal vaccine (0-49 years)Aged OutNo longer eligible based on patient's age to complete this topic Procedures Procedure NamePriorityDate/TimeAssociated DiagnosisCommentsHEPATIC FUNCTION PANEL, REybjbhl73/16/2025 9:32 AM MANAGEMENT PROFESSOR BASIC METABOLIC PANEL, S/XYczrggr28/16/2025 9:32 AM MANAGEMENT PROFESSOR CBC WITH DIFFERENTIAL, IYewdptb28/16/2025 9:32 AM MANAGEMENT PROFESSOR BASIC METABOLIC PANEL, S/BQnejetp27/15/2025 7:56 AM MANAGEMENT PROFESSOR CBC WITH DIFFERENTIAL, QXnucrer84/15/2025 7:56 AM MANAGEMENT PROFESSOR HEPATIC FUNCTION PANEL, GKpixhhp14/15/2025 7:56 AM MANAGEMENT PROFESSOR VBG & LYTES CG8+, POCT, BSTAT108/11/2024 1:13 PM MANAGEMENT PROFESSOR LACTATE, POCT, BSTAT108/11/2024 1:10 PM MANAGEMENT PROFESSOR TYPE AND LQFHNPXOUX11/14/2025 1:07 PM MANAGEMENT PROFESSOR PROTHROMBIN TIME (PT), PSTAT108/11/2024 1:07 PM MANAGEMENT PROFESSOR CBC WITH DIFFERENTIAL, BSTAT108/11/2024 1:07 PM MANAGEMENT PROFESSOR LIPASE, S/PSTAT108/11/2024 1:07 PM MANAGEMENT PROFESSOR HEPATIC FUNCTION PANEL, SSTAT108/11/2024 1:07 PM MANAGEMENT PROFESSOR BASIC METABOLIC PANEL, S/PSTAT108/11/2024 1:07 PM MANAGEMENT PROFESSOR HUMAN CHORIONIC GONADOTROPIN (HCG), GISEL,STAT108/11/2024 1:07 PM MANAGEMENT PROFESSOR DIPSTICK, USTAT108/11/2024 12:59 PM MANAGEMENT PROFESSOR OSMOLALITY, USTAT108/11/2024 12:59 PM MANAGEMENT PROFESSOR PH, USTAT108/11/2024 12:59 PM MANAGEMENT PROFESSOR MICROSCOPIC PFLJOHUXHJDHQ24/14/2025 12:59 PM MANAGEMENT PROFESSOR URINALYSIS WITH CGIDDKWYAVORUOM46/14/2025 12:59 PM MANAGEMENT PROFESSOR MR BRAIN WITHOUT IV CONTRASTRAD - Semiurgent (Fast; most ED patients; some inpatients)06/11/2025 12:10 PM MANAGEMENT PROFESSOR DX FOOT ANKLE LEFT 3+ VIEWSRAD - Semiurgent (Fast; most ED patients; some inpatients)06/11/2025 10:16 AM MANAGEMENT PROFESSOR DX PELVIS 1-2 VIEWSRAD - Semiurgent (Fast; most ED patients; some inpatients) 06/11/2025 10:16 AM MANAGEMENT PROFESSOR DX TIBIA FIBULA LEFT 2 VIEWSRAD - Semiurgent (Fast; most ED patients; some inpatients)06/11/2025 10:16 AM MANAGEMENT PROFESSOR DX FEMUR LEFT 2 VIEWSRAD - Semiurgent (Fast; most ED patients; some inpatients) 06/11/2025 10:16 AM MANAGEMENT PROFESSOR DX KNEE LEFT 4+ VIEWSRAD - Semiurgent (Fast; most ED patients; some inpatients) 06/11/2025 10:[address] THORACIC AND LUMBAR SPINE BY RECONSTRUCTIONRAD - Emergent (Fastest; for the most critically ill patients)06/11/2025 9:[address] ABDOMEN PELVIS WITH IV CONTRASTRAD - Emergent (Fastest; for the most critically ill patients)06/11/2025 9:[address] CHEST WITH IV CONTRASTRAD - Emergent (Fastest; for the most critically ill patients)06/11/2025 9:26 AM MANAGEMENT PROFESSOR VDUCKCG2406/11/2025 8:26 AM MANAGEMENT PROFESSOR XJCVZHT6806/11/2025 4:43 AM MANAGEMENT PROFESSOR TROPONIN T, 2H/6H REFLEX, 5TH GEN, FLrsor2006/11/2025 3:56 AM MANAGEMENT PROFESSOR DX CHEST AP OR PA AND LATERAL 2 VIEWSRAD - Semiurgent (Fast; most ED patients; some inpatients)06/11/2025 2:[address] CERVICAL SPINE WITHOUT IV CONTRASTRAD - Semiurgent (Fast; most ED patients; some inpatients)06/11/2025 2:[address] HEAD WITHOUT IV CONTRASTRAD - Semiurgent (Fast; most ED patients; some inpatients)06/11/2025 2:18 AM MANAGEMENT PROFESSOR HUMAN CHORIONIC GONADOTROPIN (HCG), GISEL,STAT108/11/2024 1:56 AM MANAGEMENT PROFESSOR TROPONIN T, BASELINE, 5TH GEN, PSTAT108/11/2024 1:56 AM MANAGEMENT PROFESSOR CBC WITH DIFFERENTIAL, BSTAT108/11/2024 1:56 AM MANAGEMENT PROFESSOR BASIC METABOLIC PANEL, S/PSTAT108/11/2024 1:56 AM MANAGEMENT PROFESSOR from Last 3 Months Results * (ABNORMAL) Hepatic Function Panel (06/13/2025 9:32 AM MANAGEMENT PROFESSOR) Only the most recent of3 resultswithin the time period is included. ComponentValueRef RangeTest MethodAnalysis TimePerformed AtPathologist Signature Bilirubin, Total, S<0.20.0 - 1.2 mg/dL06/13/2025 11:07 AM CSTDTLBilirubin, Direct, S<0.10.0 - 0.3 mg/dL06/13/2025 11:07 AM CSTDTLAspartate Aminotransferase (AST), S198 - 43 U/L108/13/2024 11:07 AM CSTDTLAlanine Aminotransferase (ALT), S 61(H)7 - 45 U/L108/13/2024 11:07 AM CSTDTLAlkaline Phosphatase, S6235 - 104 U/L 06/13/2025 11:07 AM CSTDTLAlbumin, S3.53.5 - 5.0 g/dL06/13/2025 11:07 AM CSTDTL Protein, Total, S5.7(L)6.3 - 7.9 g/dL06/13/2025 11:07 AM CSTDTLSpecimen (Source) Anatomical Location / LateralityCollection Method / VolumeCollection Time Received TimeBlood (Blood, Venous)06/13/2025 9:32 AM CST06/13/2025 9:53 AM MANAGEMENT PROFESSOR Narrative Authorizing ProviderResult TypeResult StatusSunitesh Mary M.D.LAB BLOOD ADD-ONFinal ResultPerforming OrganizationAddressCity/State/ZIP CodePhone Number [facility] [address] [place] [address], [place] DTL [facility] [address] [place] [address] * CBC with Differential, Blood (06/13/2025 9:32 AM MANAGEMENT PROFESSOR) Only the most recent of4 resultswithin the time period is included. ComponentValueRef RangeTest MethodAnalysis TimePerformed AtPathologist Signature Ovdnimqsei40.011.6 - 15.0 g/dL06/13/2025 10:14 AM OGSSZZXfrqthiyjy68.035.5 - 44.9 %06/13/2025 10:14 AM CSTDTLErythrocytes4.033.92 - 5.13 x10(12)/L108/13/2024 10:14 AM XUOIFKAZX40.378.2 - 97.9 fL06/13/2025 10:14 AM CSTDTLRBC Distrib Width 14.012.2 - 16.1 %06/13/2025 10:14 AM CSTDTLPlatelet Vjyyr889889 - 371 x10(9)/L 06/13/2025 10:14 AM CSTDTLLeukocytes7.63.4 - 9.6 x10(9)/L108/13/2024 10:14 AM MANAGEMENT PROFESSOR DTLNeutrophils4.761.56 - 6.45 x10(9)/L108/13/2024 10:14 AM CSTDHPMLymphocytes2.12 0.95 - 3.07 x10(9)/L108/13/2024 10:14 AM CSTDTLMonocytes0.480.26 - 0.81 x10(9)/L 06/13/2025 10:14 AM CSTDTLEosinophils0.190.03 - 0.48 x10(9)/L108/13/2024 10:14 AM CSTDTLBasophils<0.030.01 - 0.08 x10(9)/L108/13/2024 10:14 AM CSTDTLSpecimen (Source)Anatomical Location / LateralityCollection Method / VolumeCollection TimeReceived TimeBlood (Blood, Venous)06/13/2025 9:32 AM CST06/13/2025 9:57 AM MANAGEMENT PROFESSOR Narrative Authorizing ProviderResult TypeResult StatusSumaya Grullon Sr., M.D.LAB BLOOD ADD-ONFinal ResultPerforming OrganizationAddressCity/State/ZIP CodePhone Number [facility] [address] [place] [address], [facility] DTL [facility] [address] [place] [address] [facility] [address] [place] [address] * (ABNORMAL) Basic Metabolic Panel (06/13/2025 9:32 AM MANAGEMENT PROFESSOR) Only the most recent of4 resultswithin the time period is included. ComponentValueRef RangeTest MethodAnalysis TimePerformed AtPathologist Signature Potassium, S3.93.6 - 5.2 mmol/L108/13/2024 11:07 AM CSTDTLSodium, A454198 - 145 mmol/L108/13/2024 11:07 AM CSTDTLChloride, Q41261 - 107 mmol/L108/13/2024 11:07 AM CSTDTLBicarbonate, S2322 - 29 mmol/L108/13/2024 11:07 AM CSTDTLAnion Jhc611 - 15 06/13/2025 11:07 AM CSTDTLBUN (Blood [...] (Blood, Venous)06/13/2025 9:32 AM CST06/13/2025 9:53 AM MANAGEMENT PROFESSOR Narrative Authorizing ProviderResult TypeResult StatusSumaya Grullon Sr., M.D.LAB BLOOD ADD-ONFinal ResultPerforming OrganizationAddressCity/State/ZIP CodePhone Number [facility] [address] [place] [address], [place] [address] [facility] [address] [place] [address] * Venous Blood Gas and Electrolytes CG8+, POCT (06/11/2025 1:13 PM MANAGEMENT PROFESSOR)Component ValueRef RangeTest MethodAnalysis TimePerformed AtPathologist SignatureSample Site, NVRIKsvdlvwf08/14/2025 1:23 PM CSTPCLXComment: ----ADDITIONAL INFORMATION---- Performed at the Point of Care pH, Venous, POCT, B7.407.32 - 7.4311 1:23 PM CSTPCSMComment: ----ADDITIONAL INFORMATION---- Performed at [...] at the Point of Care Sodium, POCT, R031155 - 145 mmol/L108/11/2024 1:23 PM CSTPCLXComment: ----ADDITIONAL [...] Collection TimeReceived TimeBlood (Blood, Venous)06/11/2025 1:13 PM MANAGEMENT PROFESSOR 06/11/2025 1:11 PM MANAGEMENT PROFESSOR Narrative Authorizing ProviderResult TypeResult Jayden Langston M.D.LAB POCT ORDERABLES - DEVICEFinal ResultPerforming OrganizationAddressCity/State/ZIP CodePhone Number [facility] [address] [place] [address] [facility] [address] [place] [address] [facility] [address] [place] [address] * (ABNORMAL) Lactate, POCT (06/11/2025 1:10 PM MANAGEMENT PROFESSOR)ComponentValueRef RangeTest MethodAnalysis TimePerformed AtPathologist SignatureLactate, POCT0.49(L)0.50 - 2.20 mmol/L108/11/2024 1:23 PM CSTPCLXSpecimen (Source)Anatomical Location / LateralityCollection Method / VolumeCollection TimeReceived TimeBlood (Blood, Venous)06/11/2025 1:10 PM CST06/11/2025 1:10 PM MANAGEMENT PROFESSOR Narrative Authorizing ProviderResult TypeResult Jayden Langston M.D.LAB POCT ORDERABLES - DEVICEFinal ResultPerforming OrganizationAddressCity/State/ZIP CodePhone Number POC [facility] [address] [place] [address], [facility] [address] [place] [address] * Prothrombin Time (PT) (06/11/2025 1:07 PM MANAGEMENT PROFESSOR)ComponentValueRef RangeTest MethodAnalysis TimePerformed AtPathologist SignatureProthrombin Time, P11.19.4 - 12.5 sec06/11/2025 1:35 PM CSTSTMAINR1.00.9 - 1. 1:35 PM CSTSTMA Comment: ----ADDITIONAL INFORMATION---- Standard intensity warfarin therapeutic range: 2.0 to 3.0 ?? High intensity warfarin therapeutic range: 2.5 to 3.5 Specimen (Source)Anatomical Location / LateralityCollection Method / Volume Collection TimeReceived TimeBlood (Blood, Venous)06/11/2025 1:07 PM MANAGEMENT PROFESSOR 06/11/2025 1:20 PM MANAGEMENT PROFESSOR Narrative Authorizing ProviderResult TypeResult Jayden Langston M.D.LAB BLOOD ADD-ON Final ResultPerforming OrganizationAddressCity/State/ZIP CodePhone Number [facility] [address] [place], [place] [address] STMA [facility] [address] [place] [address] * Type and Screen (with Reflex Antibody ID) (06/11/2025 1:07 PM MANAGEMENT PROFESSOR)Component ValueRef RangeTest MethodAnalysis TimePerformed AtPathologist SignatureABORhA PosNot zfhgkhyppc09/14/2025 2:34 PM CSTSTRMAntibody ScreenNegativeNegative 06/11/2025 2:50 PM CSTSTRMType & Screen Hpjqspxopk71/17/2025 23:5906/11/2025 2:34 PM CSTSTRMTesting LocationRoche[place] DEFAULT 06/11/2025 2:08 PM CSTSTRMSpecimen (Source)Anatomical Location / Laterality Collection Method / VolumeCollection TimeReceived TimeBlood (Blood, Venous) 06/11/2025 1:07 PM CST06/11/2025 2:08 PM MANAGEMENT PROFESSOR Narrative Authorizing ProviderResult TypeResult Jayden Langston M.D.LAB BLOOD BANK TEST ORDERABLESFinal ResultPerforming OrganizationAddressCity/State/ZIP CodePhone Number [facility] [address] [place] [address], [facility] STRM [facility] [address] [place] [address] * hCG (Human Chorionic Gonadotropin), Quantitative, (06/11/2025 1:07 PM MANAGEMENT PROFESSOR) Only the most recent of2 resultswithin the time period is included. ComponentValueRef RangeTest MethodAnalysis TimePerformed AtPathologist Signature HCG, Quantitative, , P1.0<5 IU/L108/11/2024 1:38 PM CSTSTMAComment: Chioma- and postmenopausal females may have detectable hCG concentrations (<=14 IU/L) due to pituitary production of hCG. ??Serum FSH measurement may aid in ruling out in this population. Specimen (Source)Anatomical Location / LateralityCollection Method / Volume Collection TimeReceived TimeBlood (Blood, Venous)06/11/2025 1:07 PM MANAGEMENT PROFESSOR 06/11/2025 1:20 PM MANAGEMENT PROFESSOR Narrative Authorizing ProviderResult TypeResult Jayden Langston M.D.LAB BLOOD ADD-ON Final ResultPerforming OrganizationAddressCity/State/ZIP CodePhone Number [facility] [address] [place] [address], [facility] STMA [facility] [address] [place] [address] * Lipase (06/11/2025 1:07 PM MANAGEMENT PROFESSOR)ComponentValueRef RangeTest MethodAnalysis Time Performed AtPathologist SignatureLipase, S3013 - 60 U/L108/11/2024 2:00 PM MANAGEMENT PROFESSOR DTLSpecimen (Source)Anatomical Location / LateralityCollection Method / Volume Collection TimeReceived TimeBlood (Blood, Venous)06/11/2025 1:07 PM MANAGEMENT PROFESSOR 06/11/2025 1:25 PM MANAGEMENT PROFESSOR Narrative Authorizing ProviderResult TypeResult Jayden Langston M.D.LAB BLOOD ADD-ON Final ResultPerforming OrganizationAddressCity/State/ZIP CodePhone Number [facility] [address] [place] [address], [facility] DTL [facility] [address] [place] [address] * Dipstick, Urine (06/11/2025 12:59 PM MANAGEMENT PROFESSOR)ComponentValueRef RangeTest Method Analysis TimePerformed AtPathologist SignatureHemoglobin, QL, UNegative Gpesyorq51/14/2025 1:56 PM CSTDTLLeukocyte Esterase, UNegativeNegative 06/11/2025 1:56 PM CSTDTLNitrite, JAwmxqocaEagndcxg20/14/2025 1:56 PM CSTDTL Ketone, UNegativeNegative mg/dL06/11/2025 1:56 PM CSTDTLGlucose, UNegative Negative mg/dL06/11/2025 1:56 PM CSTDTLSpecimen (Source)Anatomical Location / LateralityCollection Method / VolumeCollection TimeReceived TimeUrine 06/11/2025 12:59 PM CST06/11/2025 1:37 PM MANAGEMENT PROFESSOR Narrative Authorizing ProviderResult TypeResult Jayden Langston M.D.LAB URINE ORDERABLESFinal ResultPerforming OrganizationAddressCity/State/[place] [address], [facility] [place] [address] * (ABNORMAL) Microscopic Automated (06/11/2025 12:59 PM MANAGEMENT PROFESSOR)ComponentValueRef RangeTest MethodAnalysis TimePerformed AtPathologist SignatureMicroscopy Cmsibbha76/14/2025 1:56 PM CSTDTLRBC3-10(A)<3 /hpf06/11/2025 1:56 PM CSTDTL Dysmorphic RBC<25<25 %06/11/2025 1:56 PM CSTDTLWBC1-3/hpf06/11/2025 1:56 PM CSTDTLComment: ----REFERENCE VALUE---- <4 (Males) <11 (Females) Squamous Epithelial Cells, U1-3/hpf06/11/2025 1:56 PM CSTDTLSpecimen (Source) Anatomical Location / LateralityCollection Method / VolumeCollection Time Received CgyfWzpqy89/14/2025 12:59 PM CST06/11/2025 1:37 PM MANAGEMENT PROFESSOR Narrative Authorizing ProviderResult TypeResult Jayden Langston M.D.LAB URINE ORDERABLESFinal ResultPerforming OrganizationAddressCity/State/ZIP CodePhone Number [facility] [address] [place] [address], [facility] [address] [place] [address] * pH, Urine (06/11/2025 12:59 PM MANAGEMENT PROFESSOR)ComponentValueRef RangeTest MethodAnalysis TimePerformed AtPathologist SignaturepH, U6.14.5 - 8.011 1:53 PM MANAGEMENT PROFESSOR DTLSpecimen (Source)Anatomical Location / LateralityCollection Method / Volume Collection TimeReceived MzmjQnctj06/14/2025 12:59 PM CST06/11/2025 1:37 PM MANAGEMENT PROFESSOR Narrative Authorizing ProviderResult TypeResult Jayden Langston M.D.LAB URINE ORDERABLESFinal ResultPerforming OrganizationAddressCity/State/ZIP CodePhone Number [facility] [address] [place] [address], [facility] [address] [place] [address] * Osmolality, Urine (06/11/2025 12:59 PM MANAGEMENT PROFESSOR)ComponentValueRef RangeTest Method Analysis TimePerformed AtPathologist SignatureOsmolality, G573456 - 1150 mOsm/kg06/11/2025 1:53 PM CSTDTLSpecimen (Source)Anatomical Location / LateralityCollection Method / VolumeCollection TimeReceived TimeUrine 06/11/2025 12:59 PM CST06/11/2025 1:37 PM MANAGEMENT PROFESSOR Narrative Authorizing ProviderResult TypeResult Jayden Langston M.D.LAB URINE ORDERABLESFinal ResultPerforming OrganizationAddressCity/State/ZIP CodePhone Number [facility] [address] [place] [address], [facility] [address] [place] [address] * Urinalysis, with Microscopic: Urine, Catheter (06/11/2025 12:59 PM MANAGEMENT PROFESSOR) ComponentValueRef RangeTest MethodAnalysis TimePerformed AtPathologist SignatureSourceUrine, Urine, Bcfkxciw93/14/2025 1:37 PM CSTDTLColor, UYellow 06/11/2025 1:37 PM CSTDTLClarity, WPptox3206/11/2025 1:37 PM CSTDTLProtein, U9 <26 mg/dL06/11/2025 2:47 PM CSTDTLProtein/Osmolality0.12<0.42 ratio06/11/2025 2:47 PM CSTDTLPredicted 24 HR Protein, U99<229 mg/24 h108/11/2024 2:47 PM MANAGEMENT PROFESSOR DTLPredicted [place]64-839zd/24 h108/11/2024 2:47 PM CSTDTLSpecimen (Source) Anatomical Location / LateralityCollection Method / VolumeCollection Time Received TimeUrine (Urine, Catheter)06/11/2025 12:59 PM CST06/11/2025 1:37 PM MANAGEMENT PROFESSOR Narrative Authorizing ProviderResult TypeResult Jayden Langston M.D.LAB URINE ORDERABLESFinal ResultPerforming OrganizationAddressCity/State/ZIP CodePhone Number [facility] [address] [place] [address], [place] [address] [facility] [address] [place] [address] * MR Brain without IV Contrast (06/11/2025 12:10 PM MANAGEMENT PROFESSOR)Anatomical Region LateralityModalityHead, Brain, Neuroradiology RST LOS, Neuroradiology ARZ LOS, Neuroradiology FLA LOSN/AMagnetic ResonanceSpecimen (Source)Anatomical Location / LateralityCollection Method / VolumeCollection TimeReceived Time Impressions 06/11/2025 12:20 PM MANAGEMENT PROFESSOR No acute traumatic findings. Chronic encephalomalacia/gliosis right frontal lobe. Narrative 06/11/2025 12:20 PM MANAGEMENT PROFESSOR EXAM: MR BRAIN WITHOUT IV CONTRAST COMPARISON: [...] rightfrontal lobe. Authorizing ProviderResult TypeResult Jayden Langston M.D.IMG MRI PROCEDURES Final Result * DX Foot Ankle Left 3+ Views (06/11/2025 10:16 AM MANAGEMENT PROFESSOR)Anatomical Region LateralityModalityLower Extremity, Foot, Ankle, Musculoskeletal RST LOS, Musculoskeletal ARZ LOS, Muskuloskeletal FLALOSLeftDigital RadiographySpecimen (Source)Anatomical Location / LateralityCollection Method / VolumeCollection TimeReceived Time Impressions 06/11/2025 10:28 AM MANAGEMENT PROFESSOR PELVIS: Compared with the 05/20/2013 radiographs. No [...] acute osseous pathology. Narrative 06/11/2025 10:28 AM MANAGEMENT PROFESSOR EXAM: DX KNEE LEFT 4+ VIEWS, DX [...] of acute osseous pathology. Authorizing ProviderResult TypeResult Hiral Nuno M.D.[facility] [place] DIAGNOSTIC IMAGING PROCEDURESFinal Result * DX Pelvis 1-2 Views (06/11/2025 10:16 AM MANAGEMENT PROFESSOR)Anatomical RegionLaterality ModalityPelvis, Musculoskeletal RST LOS, Musculoskeletal ARZ LOS, Muskuloskeletal FLA LOSN/ADigital RadiographySpecimen (Source)Anatomical Location / LateralityCollection Method / VolumeCollection TimeReceived Time Impressions 06/11/2025 10:28 AM MANAGEMENT PROFESSOR PELVIS: Compared with the 05/20/2013 radiographs. No [...] acute osseous pathology. Narrative 06/11/2025 10:28 AM MANAGEMENT PROFESSOR EXAM: DX KNEE LEFT 4+ VIEWS, DX [...] of acute osseous pathology. Authorizing ProviderResult TypeResult Hiral Nuno M.D.[facility] [place] DIAGNOST[facility] IMAGING PROCEDURESFinal Result * DX Tibia Fibula Left 2 Views (06/11/2025 10:16 AM MANAGEMENT PROFESSOR)Anatomical Region LateralityModalityLower Extremity, TibFib, Musculoskeletal RST LOS, Musculoskeletal ARZ LOS, Muskuloskeletal FLA LOSLeftDigital Radiography Specimen (Source)Anatomical Location / LateralityCollection Method / Volume Collection TimeReceived Time Impressions 06/11/2025 10:28 AM MANAGEMENT PROFESSOR PELVIS: Compared with the 05/20/2013 radiographs. No [...] acute osseous pathology. Narrative 06/11/2025 10:28 AM MANAGEMENT PROFESSOR EXAM: DX KNEE LEFT 4+ VIEWS, DX [...] acute osseous pathology. Authorizing ProviderResult TypeResult StatusChrisnatalia JUNG DIAGNOSTIC IMAGING PROCEDURESFinal Result * DX Knee Left 4+ Views (06/11/2025 10:16 AM MANAGEMENT PROFESSOR)Anatomical RegionLaterality ModalityLower Extremity, Knee, Musculoskeletal RST LOS, Musculoskeletal ARZ LOS, Muskuloskeletal FLA LOSLeftDigital RadiographySpecimen (Source)Anatomical Location / LateralityCollection Method / VolumeCollection TimeReceived Time Impressions 06/11/2025 10:28 AM MANAGEMENT PROFESSOR PELVIS: Compared with the 05/20/2013 radiographs. No [...] acute osseous pathology. Narrative 06/11/2025 10:28 AM MANAGEMENT PROFESSOR EXAM: DX KNEE LEFT 4+ VIEWS, DX [...] pathology. Authorizing ProviderResult TypeResult StatusChristopher Destini Camara M.D.[facility]NO[facility] IMAGING PROCEDURESFinal Result * DX Femur Left 2 Views (06/11/2025 10:16 AM MANAGEMENT PROFESSOR)Anatomical RegionLaterality ModalityLower Extremity, Femur, Musculoskeletal RST LOS, Musculoskeletal ARZ LOS, Muskuloskeletal FLA LOSLeftDigital RadiographySpecimen (Source)Anatomical Location / LateralityCollection Method / VolumeCollection TimeReceived Time Impressions 06/11/2025 10:28 AM MANAGEMENT PROFESSOR PELVIS: Compared with the 05/20/2013 radiographs. No [...] acute osseous pathology. Narrative 06/11/2025 10:28 AM MANAGEMENT PROFESSOR EXAM: DX KNEE LEFT 4+ VIEWS, DX [...] pathology. Authorizing ProviderResult TypeResult StatusChristopher Destini Camara M.D.[facility] [place] DIAGNOSTIC IMAGING PROCEDURESFinal Result * CT Thoracic and Lumbar Spine by Reconstruction (06/11/2025 9:26 AM MANAGEMENT PROFESSOR) Anatomical RegionLateralityModalityThoracic Spine, Neuroradiology RST LOS, Neuroradiology ARZ LOS, Neuroradiology FLA LOSN/AComputed Tomography, Computed TomographySpecimen (Source)Anatomical Location / LateralityCollection Method / VolumeCollection TimeReceived Time Impressions 06/11/2025 10:02 AM MANAGEMENT PROFESSOR No acute traumatic findings within the thoracic or lumbar spine. Narrative 06/11/2025 10:02 AM MANAGEMENT PROFESSOR EXAM: CT THORACIC AND LUMBAR SPINE BY [...] lumbar spine. Authorizing ProviderResult TypeResult Jayden Langston M.D.IM CT PROCEDURES Final Result * CT Abdomen Pelvis with IV Contrast (06/11/2025 9:26 AM MANAGEMENT PROFESSOR)Anatomical Region LateralityModalityAbdomen, Pelvis, Abdominal RST LOS, Abdominal ARZ LOS, Abdominal FLA LOSN/AComputed Tomography, Computed TomographySpecimen (Source) Anatomical Location / LateralityCollection Method / VolumeCollection Time Received Time06/11/2025 9:06 AM MANAGEMENT PROFESSOR Impressions 06/11/2025 9:43 AM MANAGEMENT PROFESSOR 1. No acute osseous or visceral injury to the chest, abdomen, or pelvis. Moderate subcutaneous hematoma overlying the left hip. 2. ??Complex right renal cyst with postprocedural changes related to prior cyst aspiration. Consider nonemergent follow-up with contrast-enhanced MR for further evaluation. Narrative 06/11/2025 9:43 AM MANAGEMENT PROFESSOR EXAM: CT CHEST WITH IV CONTRAST, CT [...] further evaluation. Authorizing ProviderResult TypeResult Jayden Langston M.D.[facility] [place] PROCEDURES Final Result * CT Chest with IV Contrast (06/11/2025 9:26 AM MANAGEMENT PROFESSOR)Anatomical RegionLaterality ModalityChest, Thoracic RST LOS, Thoracic ARZ LOS, Thoracic ARZ LOS, Thoracic FLA LOSN/AComputed Tomography, Computed TomographySpecimen (Source)Anatomical Location / LateralityCollection Method / VolumeCollection TimeReceived Time 06/11/2025 9:08 AM MANAGEMENT PROFESSOR Impressions 06/11/2025 9:43 AM MANAGEMENT PROFESSOR 1. No acute osseous or visceral injury to the chest, abdomen, or pelvis. Moderate subcutaneous hematoma overlying the left hip. 2. ??Complex right renal cyst with postprocedural changes related to prior cyst aspiration. Consider nonemergent follow-up with contrast-enhanced MR for further evaluation. Narrative 06/11/2025 9:43 AM MANAGEMENT PROFESSOR EXAM: CT CHEST WITH IV CONTRAST, CT [...] Langston M.D.IMG CT PROCEDURES Final Result * ECG 12 Lead (06/11/2025 8:26 AM MANAGEMENT PROFESSOR) Only the most recent of2 resultswithin the time period is included. ComponentValueRef RangeTest MethodAnalysis TimePerformed AtPathologist Signature Ventricular Rate ECG/Uns43HTTUSODVV Yfwjpejs408vkLAMJKKMN Tslrjrua63upQMZYFK Mbaqnvri981auNUKIDPY Yuyerggd088wlKATCA Jvqf47imudxonLPIRO Wyim21nrojaazWQEHB Wave Jcdp93hiwwocyLNVCJsiyzfyp (Source)Anatomical Location / Laterality Collection Method / VolumeCollection TimeReceived Time06/11/2025 8:26 AM MANAGEMENT PROFESSOR 06/11/2025 8:31 AM MANAGEMENT PROFESSOR Impressions MUSE - 06/11/2025 8:31 AM MANAGEMENT PROFESSOR Normal sinus rhythm Normal ECG When compared [...] ORDERABLESFinal ResultPerforming OrganizationAddressCity/State/ZIP CodePhone Number MUSE NA * Troponin T, 2 Hour with 6 Hour Reflex, 5th Gen (06/11/2025 3:56 AM MANAGEMENT PROFESSOR) ComponentValueRef RangeTest MethodAnalysis TimePerformed AtPathologist SignatureTroponin T, 2 hr, 5th gen<6<=10 ng/L108/11/2024 4:17 AM NTCXUBE9G Ghrha4ag/L108/11/2024 4:17 AM CSTSTMAComment:6 hour collection not indicated.2H Delta InterpNot Uxvcknbe33/14/2025 4:17 AM CSTSTMASpecimen (Source)Anatomical Location / LateralityCollection Method / VolumeCollection TimeReceived Time Blood06/11/2025 3:56 AM CST06/11/2025 4:01 AM MANAGEMENT PROFESSOR Narrative Authorizing ProviderResult TypeResult StatusDeidre Cabrera APRN, C.N.P., D.N.P. LAB BLOOD TROPONINFinal ResultPerforming OrganizationAddressCity/State/ZIP Code Phone Number [facility] [address] [place] [address], [facility] [address] [place] [address] * DX Chest AP or PA and Lateral 2 Views (06/11/2025 2:26 AM MANAGEMENT PROFESSOR)Anatomical RegionLateralityModalityChest, Thoracic RST LOS, Thoracic ARZ LOS, Thoracic FLA LOSN/ADigital RadiographySpecimen (Source)Anatomical Location / Laterality Collection Method / VolumeCollection TimeReceived Time Impressions 06/11/2025 8:56 AM MANAGEMENT PROFESSOR No focal consolidation, pleural effusion, or pneumothorax. Normal cardiac silhouette. Cholecystectomy surgical clips. Narrative 06/11/2025 8:56 AM MANAGEMENT PROFESSOR EXAM: DX CHEST AP OR PA AND LATERAL 2 VIEWS Procedure Note Virginia Jacobs M.D. - 06/11/2025 EXAM: DX CHEST AP OR PA AND LATERAL 2 VIEWS IMPRESSION: No focal consolidation, pleural effusion, or pneumothorax. Normal cardiac silhouette. Cholecystectomy surgical clips. Authorizing ProviderResult TypeResult StatusEmma Lilly Moore APRN.N.P., D.N.P. IM DIAGNOSTIC IMAGING PROCEDURESFinal Result * CT Cervical Spine without IV Contrast (06/11/2025 2:18 AM MANAGEMENT PROFESSOR)Anatomical RegionLateralityModalityCervical Spine, Neuroradiology RST LOS, Neuroradiology ARZ LOS, Neuroradiology FLA LOSN/AComputed Tomography, Computed Tomography Specimen (Source)Anatomical Location / LateralityCollection Method / Volume Collection TimeReceived Time06/11/2025 2:14 AM MANAGEMENT PROFESSOR Impressions 06/11/2025 6:12 AM MANAGEMENT PROFESSOR No acute fracture or traumatic malalignment of the cervical spine. Chronic spondylotic changes as detailed in the findings, primarily involving the lower cervical interspaces. Narrative 06/11/2025 6:12 AM MANAGEMENT PROFESSOR EXAM: CT CERVICAL SPINE WITHOUT IV CONTRAST [...] Head without IV Contrast (06/11/2025 2:18 AM MANAGEMENT PROFESSOR)Anatomical Region LateralityModalityHead, Neuroradiology RST LOS, Neuroradiology ARZ LOS, Neuroradiology FLA LOSN/AComputed Tomography, Computed TomographySpecimen (Source)Anatomical Location / LateralityCollection Method / VolumeCollection TimeReceived Time06/11/2025 2:12 AM MANAGEMENT PROFESSOR Impressions 06/11/2025 6:11 AM MANAGEMENT PROFESSOR Limited exam secondary to motion artifact. 1. [...] differences in imaging. Narrative 06/11/2025 6:11 AM MANAGEMENT PROFESSOR EXAM: CT HEAD WITHOUT IV CONTRAST COMPARISON: [...] intermodality differences in imaging. Authorizing ProviderResult TypeResult StatusSebamari adolores Banks APRN, C.N.P.IMG CT PROCEDURESFinal Result * Troponin T, Baseline with 2 Hour/6 Hour Reflex Biomarker Panel (06/11/2025 1:56 AM MANAGEMENT PROFESSOR)ComponentValueRef RangeTest MethodAnalysis TimePerformed At Pathologist SignatureTroponin T, Baseline, 5th gen<6<=10 ng/L108/11/2024 2:48 AM CSTSTMASpecimen (Source)Anatomical Location / LateralityCollection Method / VolumeCollection TimeReceived TimeBlood (Blood, Venous)06/11/2025 1:56 AM MANAGEMENT PROFESSOR 06/11/2025 2:07 AM MANAGEMENT PROFESSOR Narrative Authorizing ProviderResult TypeResult StatusDeidre Caberra APRN, C.N.P., D.N.P. LAB BLOOD TROPONINFinal ResultPerforming OrganizationAddressCity/State/ZIP Code Phone Number [facility] [address] [place] [address], [place] [facility] [address] [place] [address] from Last 3 Months Insurance [facility] Address: ATTN: [facility] [address] [address] [place] [address] Advance Directives For more information, please contact: [phone] * Full Code (Latest Code Status on File) Date ActivatedDate LtqptgnyoclWycpgapf98/14/2025 5:52 PM06/13/2025 3:38 PM QuestionAnswerCommentsFull Code:* Discussed Care Teams Team MemberRelationshipSpecialtyStart DateEnd Date Elsewhere, Pcp PCP - GeneralInternal Guolkewh28/14/25
[2025-07-20 19:44] VITALS: BP 103/73; PULSE 96; RESP 18; TEMP 37.5; O2SAT 96; BMI 27.5
--- NOTE | 2025-07-20 20:17 | XR_ITS ---
Patient: MARYAM VALLECILLO Facility:?[facility] Patient ID:?[id number] Site Patient ID:?[id number]. Site :?[id number] Study:?XRay-Extremity Right THUMB-07/20/2025 8:45:41 PM Ordering Physician:Shruti Bryan Final Report: Indication: Pain. Technique: Right extremity 3 views. Comparison: None. Findings: Bones: Alignment is normal. No fractures or bone lesions. Joint spaces: Unremarkable. Soft tissues: Unremarkable. Impression: Unremarkable evaluation of the thumb. Dictated by Artur Lopez MD @ 07/20/2025 9:14:35 PM (Electronic Signature)
--- NOTE | 2025-07-20 20:55 | ED_ITS ---
HPI - Extremity Injury (Upper) General Chief Complaint: Extremity Pain/Injury, Upper Stated Complaint: R thumb injury Time Seen by Provider: 07/20/25 20:44 History of Present Illness HPI narrative: This the 45-year-old female comes in with an injury to her right thumb. Yesterday she was using a log splitter and got her thumb in the wrong position and had a contusion or impact injury. She has pain in the proximal joint of her thumb and surrounding area. She has some mild swelling but no sign of skin injury. She does have normal range of motion. Related Data Previous Rx's ?Medication ?Instructions ?Recorded celecoxib 200 mg capsule (Celebrex) 200 mg PO BID #180 caps 05/05/24 duloxetine 60 mg capsule,delayed 60 mg PO QDAY #90 cap s 02/17/25 release sumatriptan succinate 100 mg See Rx Instructions PO .C OMPLEX 06/01/25 tablet (Imitrex) #10 tabs methocarbamol 500 mg tablet 500 mg PO QID PRN headache #60 tabs 06/04/25 duloxetine 30 mg capsule,delayed 30 mg PO QDAY #90 cap s 07/06/25 release oxycodone 5 mg tablet 5 mg PO Q6H PRN pain #20 tab s 07/19/25 Allergies Allergy/AdvReac Type Severity Reaction Status Date / Time No Known Drug Allergies Allergy Verified 07/20/25 19:41 Review of Systems Status of ROS: Reports: 10 or more systems reviewed and unremarkable except as noted in History and below Narrative: Constitutional: No fevers, no weight gain or loss. Eyes: No discharge. No vision changes. HENT: No congestion, no sore throat, no ear pain. Cardiovascular: No chest pain, no palpitations. Respiratory: No shortness of breath, no wheezes, no cough. Gastrointestinal: No abdominal pain, no vomiting, no diarrhea. Genitourinary: No dysuria, no hematuria. Musculoskeletal: Normal range of motion. Right thumb injury. Skin: No rashes, no pruritis. Neurological: No dizziness, weakness, sensory change, speech change. Endo/Heme/Allergies: No bruising or bleeding. No polydipsia. Pysch: no suicidality, no anxiety, no insomnia. All other systems reviewed and are negative. [facility] Medical History (Updated 07/06/25 @ 11:54 by John Singh MD) Complex renal cyst ?N28.1 - Cyst of kidney, acquired (ICD-10) Herpes simplex ?B00.9 - Herpesviral infection, unspecified (ICD-10) Generalized anxiety disorder ?F41.1 - Generalized anxiety disorder (ICD-10) Major depression, recurrent, chronic ?F33.9 - Major depressive disorder, recurrent, unspecified (ICD-10) Seizure disorder ?G40.909 - Epilepsy, unspecified, not intractable, without status epilepticus (ICD-10) Rectal hemorrhage (12/23/20) ?K62.5 - Hemorrhage of anus and rectum (ICD-10) Premature delivery ?O60.10X0 - labor with delivery, unspecified trimester, not applicable or unspecified (ICD-10) Panic attack ?F41.0 - Panic disorder [episodic paroxysmal anxiety] (ICD-10) Occipital neuralgia (08/13/11) ?M54.81 - Occipital neuralgia (ICD-10) Obstructive sleep apnea syndrome ?G47.33 - Obstructive sleep apnea (adult) (pediatric) (ICD-10) Iritis (04/15/13) ?H20.9 - Unspecified iridocyclitis (ICD-10) Inflammation of sacroiliac joint ?M46.1 - Sacroiliitis, not elsewhere classified (ICD-10) Infection due to severe acute respiratory syndrome coronavirus 2 (SARS-CoV-2) (07/2020) ?U07.1 - COVID-19 (ICD-10) 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) ?M47.899 - Other spondylosis, site unspecified (ICD-10) Herpes zoster ?B02.9 - Zoster without complications (ICD-10) Fibromyalgia ?M79.7 - Fibromyalgia (ICD-10) Dysmenorrhea ?N94.6 - Dysmenorrhea, unspecified (ICD-10) 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 (skin-picking) disorder (ICD-10) Surgical History (Updated 06/15/25 @ 10:35 by Marlena Morris) Status post endometrial ablation (02/16/20) ?Z98.890 - Other specified postprocedural states (ICD-10) History of tubal ligation (12/25/17) ?Z98.51 - Tubal ligation status (ICD-10) History of loop electrosurgical excision procedure (LEEP) of cervix (2004) ?Z98.890 - Other specified postprocedural states (ICD-10) History of laparoscopic cholecystectomy (11/04/17) ?Z90.49 - Acquired absence of other specified parts of digestive tract (ICD- 10) History of section (12/25/17) ?Z98.891 - History of uterine scar from previous surgery (ICD-10) History of section (2011) ?Z98.891 - History of uterine scar from previous surgery (ICD-10) Family History Maternal Grandmother Breast cancer, Onset Age: 70 Ovarian cancer Paternal Grandfather Colon cancer, Onset Age: 65 Paternal Grandmother Diabetes Father Myocardial infarction, Onset Age: 42 Heart disease High blood pressure High cholesterol Other Seizure disorder Social History Narrative: does not drink alcohol 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 , 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, 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 What is your current living situation?: I presently have a place to live In the past 12 months, utilities in danger of being shut off: no In past 12 months, lack of transportation kept you from medical appts, meetings, work, or getting things needed for daily living: no In the past 12 mos, the food you bought just didn't last and you didn't have money to buy more?: never true Smoking Status: Former smoker How often do you have a drink containing alcohol: never AUDIT-C Alcohol total score: 0 Non-prescribed substance use: denies use How often does anyone, including family, friends and others, physically hurt you : never How often does anyone, including family, friends and others, insult or talk down to you: never How often does anyone, including family, friends and others, threaten you with harm: never How often does anyone, including family, friends and others, scream or curse at you: never Are you currently sexually active: Yes Are you using contraception or practicing any form of control: Yes (tubal ligation) service: No Exam Narrative: Exam Narrative: Constitutional: Well-developed, well-nourished, no acute distress. HEENT: Normocephalic, atraumatic. Neck: Normal range of motion. Nontender. Supple. Heart: Regular. No murmurs. Normal rate. Intact distal pulses. Lungs: Clear to auscultation. No chest discomfort. No wheezes, rhonchi, or rales. Abdomen: Normal bowel sounds. Nontender. No rebound tenderness. Genitalia: Deferred. Back: No midline tenderness. Normal range of motion. Extremities: Normal range of motion. Right thumb has mild swelling with diffuse tenderness in the proximal aspect of the thumb. There is no skin injury. No evidence of tendon dysfunction. Skin: Intact. No rash. Warm. No erythema or pallor. Neurologic: No altered sensation. No weakness. Alert and oriented. Psychiatric: No suicidality. No anxiety or depression. No insomnia. Nursing notes and vitals signs are reviewed. Const: Vital Signs, click to edit/add: Vital Signs - 24 hr 07/20/25 19:44 Temperature 99.5 F Pulse Rate [Left P ulse Oximeter] 96 Respiratory Rate 18 Blood Pressure [Ri ght Upper Arm] 103/73 Pulse Oximetry 96 Oxygen Delivery Me thod Room Air Course Vital Signs Vital signs: Initial Vital Signs Temperature 99.5 F 07/20/25 19:44 Temperature Source Temporal Artery Scan 07/20/25 19:44 Pulse Rate 96 07/20/25 19:44 Respiratory Rate 18 07/20/25 19:44 Blood Pressure 103/73 07/20/25 19:44 Blood Pressure Mean 83 07/20/25 19:44 Blood Pressure Position Sitting 07/20/25 19:44 Pulse Oximetry 96 07/20/25 19:44 Oxygen Delivery Method Room Air 07/20/25 19:44 Vital Signs Temperature 99.5 F 07/20/25 19:44 Pulse Rate 96 07/20/25 19:44 Respiratory Rate 18 07/20/25 19:44 Blood Pressure 103/73 07/20/25 19:44 Pulse Oximetry 96 07/20/25 19:44 Oxygen Delivery Method Room Air 07/20/25 19:44 Temperature 99.5 F 07/20/25 19:44 Pulse Rate 96 07/20/25 19:44 Respiratory Rate 18 07/20/25 19:44 Blood Pressure 103/73 07/20/25 19:44 Pulse Oximetry 96 07/20/25 19:44 Oxygen Delivery Method Room Air 07/20/25 19:44 MDM - Extremity Injury (Upper) MDM Narrative Medical decision making narrative: This patient comes in with an injury to her right thumb as described above. An x-ray images obtained and by my review shows no sign of fracture or malalignment. The patient was placed in a thumb spica splint and encouraged to use lioa-mvp-dtmpvxb medications as needed and directed. She should increase activity as tolerated. Discharge Plan Discharge Prescriptions: No Action celecoxib [Celebrex] 200 mg capsule 200 mg PO BID Qty: 180 3RF sumatriptan succinate [Imitrex] 100 mg tablet See Rx Instructions PO .COMPLEX Qty: 10 1RF Rx Instructions: take 1 tab at onset of headache; if no relief, may repeat 1 tab after at least 2 hrs; max = 2 tabs/24 hrs PO methocarbamol 500 mg tablet 500 mg PO QID PRN (Reason: headache) Qty: 60 0RF duloxetine 30 mg capsule,delayed release(DR/EC) 30 mg PO QDAY Qty: 90 0RF duloxetine 60 mg capsule,delayed release(DR/EC) 60 mg PO QDAY Qty: 90 1RF oxycodone 5 mg tablet 5 mg PO Q6H PRN (Reason: pain) Qty: 20 0RF Follow Up/Referrals: John Singh MD [Primary Care Provider, Family Practice]
== END 2025-07-20 21:57 | disposition home or self-care (01) ==
PROVIDERS: Emergency Provider Emergency Medicine Emergency Medical Services; PCP Family Medicine
DX: S69.91XA Unspecified injury of right wrist, hand and finger(s), initial encounter (principal); W23.2XXA Caught, crushed, jammed or pinched between a moving and stationary object, initial encounter; Y93.89 Activity, other specified
CPT/HCPCS: 73140; 99283; 99284